=== PATIENT | male | born 1940 | race Hispanic/Latino ===

== ENCOUNTER 2017-08-20 15:21 | Inpatient (IN) | payer MEDICARE ==
[~2017-08-20] VITALS: Ht 165.1 cm; Wt 90.4 kg
[~2017-08-20 15:21] MED LIST: ALBUTEROL SULF8.5 GM INH; ATORVASTATIN CA10 MG PO; CLOPIDOGREL75 MG PO; FLOMAX0.4 MG PO; LASIX40 MG PO; LEVAQUIN500 MG PO; LISINOPRIL2.5 MG PO; METOPROLOL SUCC50 MG PO; PANTOPRAZOLE SO40 MG PO; POTASSIUM CHLO10 ME1 PO; TESSALON PERLE100 MG PO; VITAMIN D250000 UNIT PO; ZOFRAN ODT4 MG SL
[2017-08-20] MEDS ORDERED: ACETAMINOPHEN 325 MG TAB PO ONE (16:00)
[2017-08-20] MEDS ORDERED: ACETAMINOPHEN 325 MG TAB ONE (16:05)
[2017-08-20 16:58] LABS: BASOPHILS # (AUTO) 0.1 (0.0-0.1); BASOPHILS % 0.9 % (0.0-1.0); HEMATOCRIT 44.9 % (38.2-49.6); HEMOGLOBIN 14.3 g/dL (14.0-18.0); LYMPHOCYTES # (AUTO) 0.4 (1.0-3.2); LYMPHOCYTES % 3.1 % (18.0-39.1); MEAN CORPUSCULAR HEMOGLOBIN 31.3 pg (28-32); MEAN CORPUSCULAR HGB CONC 31.8 g/dL (31-35); MEAN CORPUSCULAR VOLUME 98.2 fL (81-99); MONOCYTES % 7.1 % (4.4-11.3); NEUTROPHILS # (AUTO) 12.4 (2.1-6.9); NEUTROPHILS % 88.5 % (38.7-80.0); PLATELET COUNT 188 x10e3/uL (140-360); RED BLOOD COUNT 4.57 x10e6/uL (4.3-5.7); RED CELL DISTRIBUTION WIDTH 12.4 % (11.7-14.4)
[2017-08-20 17:05] LABS: INR 1.09; PROTHROMBIN TIME 14.7 seconds (11.9-14.5)
[2017-08-20 17:06] LABS: PARTIAL THROMBOPLASTIN TIME 41.3 seconds (23.8-35.5)
[2017-08-20 17:13] LABS: ALBUMIN 2.9 g/dL (3.5-5.0); ALBUMIN/GLOBULIN RATIO 0.6 (0.8-2.0); ANION GAP 13.3 mmol/L (8-16); CALCIUM 9.5 mg/dL (8.4-10.2); CREATININE, SERUM 2.03 mg/dL (0.72-1.25); POTASSIUM 4.3 mmol/L (3.5-5.1)
[2017-08-20 17:20] LABS: TROPONIN I 0.126 ng/mL (0-0.300)
--- NOTE | 2017-08-20 17:38 | Diagnostic Imaging Report ---
PROCEDURE: Frontal and lateral views of the chest. COMPARISON: Chest x-ray 02/16/2016. CT chest with 02/08/2016 INDICATIONS: SHORT OF BREATH FINDINGS: Lines/tubes: Median sternotomy wires remain intact. Lungs: Worsening nodular airspace opacities bilaterally, right worse and left. Pleura: There is no pleural effusion or pneumothorax. Heart and mediastinum: The heart and the mediastinum are normal. Atherosclerotic calcifications are present. Bones: No acute bony abnormality. IMPRESSION: Worsening multifocal nodular air space opacities, right worse than left. This is concerning for atypical infection such as OLE. This was previously present since 02/08/2016 but has continued to worsen. Alternatively a metastatic disease should also be considered. Dictated by: Artemio Zelaya M.D. on 08/20/2017 at 17:46 Electronically approved by: Artemio Zelaya M.D. on 08/20/2017 at 17:46
[2017-08-20] MEDS ORDERED: SODIUM CHLORIDE 0.9% 1000ML 1,000 ML IV SCH (18:38)
[2017-08-20] MEDS ORDERED: METOCLOPRAMIDE HCL 10 MG/2ML VIAL IV PRN (18:45)
[2017-08-20] MEDS ORDERED: ASPIRIN 81 MG CHEW TAB PO ONE (18:45)
[2017-08-20] MEDS ORDERED: ALBUTEROL/IPRATROPIUM 3 ML NEB NEB ONE (18:45)
[2017-08-20] MEDS ORDERED: ETOMIDATE 2 MG/ML 10 ML INJ IV ONE (19:00)
[2017-08-20] MEDS ORDERED: SUCCINYLCHOLINE 200 MG/10 ML SYR ONE (19:00)
[2017-08-20] MEDS: IPRATROPIUM BROMIDE 0.02% 2.5 ML NEB NEB SCH (19:00)
--- NOTE | 2017-08-20 19:42 | Diagnostic Imaging Report ---
CT chest without enhancement CPT code: 68438 INDICATION: Atypical pneumonia versus metastatic lung disease. No primary malignancy documented. TECHNIQUE: Thin collimation axial images obtained from the thoracic inlet to the level of the diaphragm without intravenous contrast. RADIATION DOSE: Total DLP: 542.3 mGy*cm Estimated effective dose: (DLP x 0.015 x size factor) mSv CTDIvol has been reviewed. It is below the limits set by the Radiation Protocol Committee (RPC). COMPARISON: CT chest 02/08/2016 (performed for bronchitis and fever), chest x-ray 02/16/2016 CHEST FINDINGS: Lymph nodes: No enlarged axillary or supraclavicular lymphadenopathy. Mediastinal lymph nodes are prominent. A right paratracheal lymph node measures 1.6 x 1.0 cm. A subcarinal lymph node measures 1.5 x 1.7 cm. A lymph node in the AP window measures 1.3 x 1.0 cm. These are all slightly larger compared to previous exam. Thyroid: Diminutive in size without mass in the visualized parenchyma. Mediastinum: Atherosclerotic and valvular calcifications are present. The heart is mildly enlarged. No pericardial effusion. The aorta and main pulmonary artery are normal in diameter. The esophagus is collapsed. Lungs: Right: Multifocal inflammatory appearing noncalcified nodules are present throughout the lung, similar to previous exam. There is diffuse bronchial wall thickening. No alissa consolidation. These nodules are now increased in number. Left: Multifocal inflammatory appearing and noncalcified nodules present throughout the lung. These are similar in appearance but increased in number compared to previous exam. There is mild bronchial wall thickening. No alissa consolidation. Airways: There is mucous along the left wall of the trachea. There is mild tracheobronchomalacia.. Pleura: No pleural effusion or pleural based mass.. ABDOMEN FINDINGS: The liver is decreased in attenuation consistent with steatosis. A calcified granuloma in the right lobe is stable. There are tiny gallstones in the gallbladder neck. These are stable in position. No soft tissue mass in the visualized portions of the liver, spleen, or adrenal glands.. Bones: Median sternotomy is intact. There are degenerative changes of the spine without compression deformity. No lytic or blastic lesions.. IMPRESSION: 1. Multifocal inflammatory appearing nodules nodules, right lung more severe than the left, is very suggestive of infectious/inflammatory process. However, metastasis should be considered if there are no signs/symptoms of infection and there is a history of malignancy. 2. Diffuse bronchial wall thickening suggestive of bronchitis. 3. COPD. 4. Mediastinal lymph nodes are slightly larger which may be reactive to an infectious/inflammatory process. 5. Hepatic steatosis. Cholelithiasis. Signed by: Dr. Arpan Gillis MD on 08/20/2017 7:39 PM
[2017-08-20] MEDS: CEFTRIAXONE SOD 1 GM VIAL IV SCH (20:27)
[2017-08-20] MEDS: AZITHROMYCIN 500MG/NS 250 ML 250 ML IV SCH (20:27)
[2017-08-20] MEDS: SODIUM CHLORIDE 0.9% 1000ML 1,000 ML IV SCH (20:27)
[2017-08-20] MEDS ORDERED: LISINOPRIL10 MG PO (20:45)
[2017-08-20] MEDS ORDERED: TAMSULOSIN HCL0.4 MG PO (20:45)
[2017-08-20] MEDS ORDERED: VITAMIN D250000 UNIT PO (20:45)
[2017-08-20] MEDS ORDERED: FLUOXETINE HCL10 MG PO (20:45)
[2017-08-20 20:53] LABS: BAND NEUTROPHILS % (MANUAL) 27 %; LYMPHOCYTES % (MANUAL) 4 % (19-48); METAMYELOCYTES % (MANUAL) 2 % (0-0); NEUTROPHILS % (MANUAL) 67 % (40-74)
[2017-08-20 20:59] LABS: PLATELET ESTIMATE ADEQUATE; PLATELET MORPHOLOGY COMMENT NORMAL; RBC MORPHOLOGY COMMENT NORMAL
[2017-08-20 21:20] VITALS: BP 98/45
[2017-08-20] MEDS: FAMOTIDINE 20 MG/2 ML VIAL IV SCH (21:30)
[2017-08-20 22:00] VITALS: BP 98/45
[2017-08-21] VITALS: BP 98/45
[2017-08-21 01:15] LABS: CREATINE KINASE MB 1.2 ng/mL (0.00-5.00); TROPONIN I 0.073 ng/mL (0-0.300)
[2017-08-21] MEDS: IPRATROPIUM BROMIDE 0.02% 2.5 ML NEB NEB SCH ×4 (01:55→19:10)
[2017-08-21 04:00] VITALS: BP 147/71
[2017-08-21] MEDS: SODIUM CHLORIDE 0.9% 1000ML 1,000 ML IV SCH ×2 (05:49→15:04)
[2017-08-21] MEDS: CEFTRIAXONE SOD 1 GM VIAL IV SCH ×2 (05:49→18:03)
--- NOTE | 2017-08-21 07:22 | Diagnostic Imaging Report ---
EXAMINATION: PA and lateral views of the chest. COMPARISON: CT chest 08/20/2017, chest radiograph 08/20/2017 CLINICAL HISTORY: Pneumonia DISCUSSION: Coarse interstitial opacities, right greater than left are unchanged relative to 08/20/2017 when accounting for differences in technique. No new airspace consolidation. No pneumothorax. Stable cardiomediastinal contour with postsurgical changes in the mediastinum. Mediastinal lymphadenopathy is seen to better advantage on comparison CT. No acute osseous abnormalities. Multilevel degenerative disc changes of the thoracic spine. IMPRESSION: Coarse interstitial nodular opacities, right greater than left, are grossly stable relative to 08/20/2017. For further description and differential diagnosis refer to the report for CT scan of the chest without contrast 08/20/2017. Signed by: Dr. Ulises Alicea M.D. on 08/21/2017 7:18 AM
[2017-08-21 07:40] LABS: BASOPHILS % 0.2 % (0.0-1.0); EOSINOPHILS % 0.1 % (0.0-6.0); HEMATOCRIT 40.8 % (38.2-49.6); HEMOGLOBIN 12.8 g/dL (14.0-18.0); LYMPHOCYTES # (AUTO) 0.8 (1.0-3.2); MEAN CORPUSCULAR HGB CONC 31.4 g/dL (31-35); MEAN CORPUSCULAR VOLUME 98.8 fL (81-99); MONOCYTES # (AUTO) 1.6 (0.2-0.8); MONOCYTES % 9.9 % (4.4-11.3); NEUTROPHILS # (AUTO) 13.3 (2.1-6.9); NEUTROPHILS % 84.2 % (38.7-80.0); PLATELET COUNT 175 x10e3/uL (140-360); RED BLOOD COUNT 4.13 x10e6/uL (4.3-5.7); RED CELL DISTRIBUTION WIDTH 12.4 % (11.7-14.4)
[2017-08-21 07:47] VITALS: BP 125/65
[2017-08-21 08:03] LABS: ANION GAP 12.8 mmol/L (8-16); CALCIUM 8.8 mg/dL (8.4-10.2); CREATININE, SERUM 1.99 mg/dL (0.72-1.25); POTASSIUM 4.8 mmol/L (3.5-5.1)
[2017-08-21 10:24] LABS: CREATINE KINASE MB 1.6 ng/mL (0.00-5.00); TROPONIN I 0.096 ng/mL (0-0.300)
[2017-08-21 11:51] VITALS: BP 136/67
[2017-08-21] MEDS: BENZONATATE 100 MG CAP PO SCH ×3 (14:51→22:00)
[2017-08-21] MEDS: ONDANSETRON HCL 4 MG ORAL DISINTEGRATING TAB SL SCH ×3 (14:51→22:00)
[2017-08-21 15:47] VITALS: BP 158/70
--- NOTE | 2017-08-21 16:30 | Consultation ---
DATE OF CONSULTATION: August 21, 2017 PULMONARY MEDICINE CONSULT PATIENT'S ACTIVITIES MANAGER: Dr. Lm Richards. This is in coverage. HISTORY: Mr. Christie is a pleasant 77-year-old gentleman with abnormal chest radiography. Patient came to our emergency room on August 20, 2017. He has been losing weight for the last year. He has had decreased appetite. He has had increased chest congestion. Of note, normally he would walk with 10 to 20 meters' distance except for the last 6 months for which he is totally not walking. He is on oxygen, possibly at night. Patient does not inform me that he is on any bronchodilators. Patient with increase in congestion recently and he came in for a CAT scan. When compared to CAT scan from 1-1/2 years ago, there is progression of multifocal nodular opacities, small consolidations possible initiating, thickening of bronchial borden suggestive of bronchitis. Patient was admitted. He was initiated on antibiotics for pneumonia. As he is weak in this chronic condition and that is not responding to initial management, I was consulted. PAST MEDICAL HISTORY: Right internal carotid stent November 2014, coronary artery bypass 2000, aortic valve replacement porcine for severe aortic stenosis February 2013, active coronary artery disease on last cardiac catheterization, hypertension, hyperlipidemia, GERD, pneumonia, history of right amaurosis fugax, bleeding gastric ulcer October 2014, appendectomy, bilateral cataract surgery. He denies asthma, denies knowledge of COPD, denies allergies, and he also denies that the GERD is significant. MEDICATIONS: Medication list reviewed per electronic record. Plavix, Lasix, azithromycin are among some of the active medicines with ceftriaxone. Other medicines per record. ALLERGIES: NO KNOWN DRUG ALLERGIES. SOCIAL HISTORY: Patient former social drinker but not recently. No drugs. Patient smoked from age 18 to 52 years of age, 1 pack per day. 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 He was born at [facility] on the border with [place] and [place]. Patient lives with , who is stronger than he is. FAMILY HISTORY: Noncontributory to this condition. REVIEW OF SYSTEMS: Cannot get at this time as he is very tired and he is decreased historian. PHYSICAL EXAMINATION VITAL SIGNS: Currently afebrile. Vital signs noted per electronic record. GENERAL: No distress, but weak, in bed, slightly pale and appears weak. HEENT: Normocephalic, atraumatic. NECK: Supple. Throat midline. LUNGS: Bilateral air entry, limited due to limited effort, rare rhonchi. CARDIOVASCULAR: S1 and S2. No murmurs, rubs or gallops. ABDOMINAL: Soft, nontender. EXTREMITIES: No clubbing, no cyanosis. There is only trace edema. INTEGUMENT: No rash, no purpura. LABS: Potassium 4.8, bicarb 20, BUN 32, creatinine 1.9. White count 16, hematocrit 41, platelets 175. BNP level is 177. IMPRESSION AND PLAN 1. Multifocal pneumonitis, chronic, progressive. 2. Baseline debility and weakness. 3. Hypoxemia not otherwise specified. He has some home oxygen at night. 4. Former smoker, but without disclosing active pulmonary disease definitively. 5. Elevated creatinine, treat as acute kidney injury. 6. Aortic valve replacement status. 7. Coronary artery disease status post coronary artery bypass graft. 8. Hyperlipidemia. 9. Hypertension. 10. No definite reports of gastroesophageal reflux disease significant, no allergies, no asthma by report. At this time, continue antibiotics which could be reasonable. Most importantly, we need to culture sputum and figure out if this is chronic bacterial infection or if it is either mycobacterial or fungal infection. There is significant chance of this being mycobacterial. Will check sputum AFB. Continue to promote patient to expectorate. We wish to mobilize him and have him do things that may allow him to expectorate sputum more easily. Follow up his creatinine to ensure improvement or in stabilization. I would like to thank Dr. Lm Richards and Dr. Vitor Castro for allowing me the chance to participate in the care of Mr. Natalee Christie. Do not hesitate to contact me if I could help in any way as I remain available for questions. Job#: [id number] EV
[2017-08-21] MEDS: LISINOPRIL 10 MG TAB PO SCH (17:00)
[2017-08-21] MEDS: METOPROLOL SUCCINATE 50 MG TAB XL PO SCH (18:02)
--- NOTE | 2017-08-21 18:35 | History and Physical ---
HISTORY OF PRESENT ILLNESS: A 77-year-old male with past medical history positive for coronary artery disease status post CABG, status post mitral valve placement, hypertension, chronic renal insufficiency. Patient apparently has been getting worse at home with cough and phlegm and fever and very lethargic. He was brought to the emergency room. REVIEW OF SYSTEMS: The patient is extremely sleepy. Cannot give me too much information most information. Most of the information is received from the family. PAST MEDICAL HISTORY: Coronary artery disease status post CABG. Status post mitral valve replacement, hypertension, chronic renal insufficiency and also history of apparently COPD. According to the family, he was diagnosed with that. He had a long history of smoking. ALLERGIES: HE IS NOT ALLERGIC TO ANY MEDICATIONS. SOCIAL HISTORY: He quit smoking. He used to smoke a lot. He does not drink alcohol. VITAL SIGNS: Blood pressure 125/65, temperature 98 degrees, heart rate 105 per minute, respiratory rate 18 per minute. Oxygen saturation 95%. LABORATORY DATA: Blood work we have BMP with a sodium 140, potassium 4.8, chloride 104. CO2 28, BUN 32, creatinine 1.99, glucose 120 and on CBC white blood count 15.7, hemoglobin 12.8, hematocrit 40.8, platelet count 155,000. PT 14.7. PTT 41.3. INR 1.09. AST 21. ALT 17. Total bilirubin 1.5, alkaline phosphatase 98. FINAL IMPRESSION: 1. Bilateral pneumonia. 2. Coronary artery disease status post CABG. 3. 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 4. Hypertension with hypertensive nephropathy. 5. Acute renal failure and chronic renal failure stage 3. 6. Chronic obstructive pulmonary disease exacerbation. PLAN OF TREATMENT: Continue albuterol and Atrovent q.6 h. as needed for shortness of breath. Zithromax 250 mg IV piggyback once a day. Continue ceftriaxone 1 gram IV piggyback twice a day. Metoclopramide 10 mg q.6 hours. Pepcid 20 mg daily. Tylenol 650 mg q.6 h. as needed. Continue with IV fluids, D5 with normal saline at 80 mL an hour. Going to recheck the BMP and CBC tomorrow. Resume home medications. Job#: [id number]
[2017-08-21] MEDS: AZITHROMYCIN 500MG/NS 250 ML 250 ML IV SCH (18:53)
[2017-08-21 20:00] VITALS: BP 141/63
[2017-08-21] MEDS: FAMOTIDINE 20 MG/2 ML VIAL IV SCH (20:48)
[2017-08-21] MEDS: TAMSULOSIN HCL 0.4 MG CAP PO SCH (20:48)
[2017-08-21] MEDS: ACETAMINOPHEN 325 MG TAB PO PRN (20:48)
[2017-08-21] MEDS ORDERED: ATORVASTATIN 10 MG TAB PO SCH (21:00)
[2017-08-22] VITALS (58 sets, daily range): BP systolic 81–150; BP diastolic 43–92
[2017-08-22] MEDS: IPRATROPIUM BROMIDE 0.02% 2.5 ML NEB NEB SCH ×4 (01:00→19:15)
[2017-08-22] MEDS: BENZONATATE 100 MG CAP PO SCH ×6 (02:00→21:40)
[2017-08-22] MEDS: ONDANSETRON HCL 4 MG ORAL DISINTEGRATING TAB SL SCH ×6 (02:00→21:40)
[2017-08-22] MEDS: SODIUM CHLORIDE 0.9% 1000ML 1,000 ML IV SCH ×3 (02:02→22:30)
[2017-08-22 06:26] LABS: ABG PCO2 130 mmHg (41-51); ABG PH 6.93 (7.31-7.41); ABG PO2 95 mmHg (80-105)
[2017-08-22] MEDS: CEFTRIAXONE SOD 1 GM VIAL IV SCH ×2 (06:47→16:42)
[2017-08-22] MEDS ORDERED: MIDAZOLAM HCL 25 MG in SODIUM CHLORIDE 0.9% 50ML 45 ML IV PRN (07:30)
--- NOTE | 2017-08-22 07:38 | Diagnostic Imaging Report ---
PROCEDURE: A single AP view of the chest. COMPARISON: Patients [facility], DX, CHEST 2 VIEWS, 08/21/2017, 6:28. INDICATIONS: ETT/NGT PLACEMENT FINDINGS: Lines/tubes: Endotracheal tube and nasogastric tube are in appropriate locations. Lungs: Worsening interstitial opacities in both lungs may represent multifocal pneumonia. Pleura: Small bilateral pleural effusions. Heart and mediastinum: The heart and the mediastinum are unremarkable. Bones: No acute bony abnormality. IMPRESSION: 1. Worsening pulmonary opacities. 2. Acceptable position of the ET tube and NG tube. Aguila Ledezma D.O. Dictated by: Agiula Ledezma D.O. on 08/22/2017 at 7:46 Electronically approved by: Aguila Ledezma D.O. on 08/22/2017 at 7:46
[2017-08-22 07:44] LABS: BASOPHILS # (AUTO) 0.1 (0.0-0.1); BASOPHILS % 0.8 % (0.0-1.0); HEMATOCRIT 41.3 % (38.2-49.6); HEMOGLOBIN 12.5 g/dL (14.0-18.0); LYMPHOCYTES # (AUTO) 0.5 (1.0-3.2); LYMPHOCYTES % 2.7 % (18.0-39.1); MEAN CORPUSCULAR HEMOGLOBIN 31.4 pg (28-32); MEAN CORPUSCULAR HGB CONC 30.3 g/dL (31-35); MONOCYTES % 5.6 % (4.4-11.3); NEUTROPHILS # (AUTO) 15.7 (2.1-6.9); NEUTROPHILS % 89.2 % (38.7-80.0); RED BLOOD COUNT 3.98 x10e6/uL (4.3-5.7); RED CELL DISTRIBUTION WIDTH 12.5 % (11.7-14.4)
--- NOTE | 2017-08-22 07:51 | Diagnostic Imaging Report ---
Exam: Head CT without contrast History: Altered mental status, unresponsive Comparison studies: None Technique: Axial images were obtained from the skull base to the vertex. Coronal and sagittal images reconstructed from the axial data. Intravenous contrast: None Findings: Scalp: No abnormalities. Bones: No fractures, blastic or lytic lesions. Brain sulci: Mildly prominent. Ventricles: Mild compensatory dilatation. No hydrocephalus. Extra-axial spaces: No masses, no fluid collection. Parenchyma: No mass, acute hemorrhage or acute cortical vascular insults. There are chronic lacunar infarcts in the head of the right caudate nucleus which extend to the adjacent anterior limb of the right internal capsule, within the right thalamus, along the lateral margin of the right superior putamen and in the anterior left lentiform nucleus. Ill-defined confluent hypodensities in the supratentorial white matter are nonspecific but most compatible with chronic small vessel ischemic changes. A 7 mm calcification along the right occipital convexity, just superior to the calcarine fissure, is without mass effect and may reflect dystrophic calcification is sequela previous infection/inflammation, or alternatively small meningioma at the extra-axial in location. Sellar/suprasellar region: No abnormalities. Craniocervical junction: Patent foramen magnum. No Chiari one malformation. Incidental findings: Atherosclerotic calcifications in the carotid siphons and intradural vertebral arteries. IMPRESSION: No mass, acute hemorrhage or acute cortical vascular insults. Chronic findings: 1. Mild generalized volume loss. 2. Moderate microvascular ischemic changes. 3. Multiple chronic lacunar infarcts as described. 4. Incidental right occipital calcification. Signed by: Dr. Ulises Patino M.D. on 08/22/2017 7:48 AM
[2017-08-22 08:03] LABS: ANION GAP 14.8 mmol/L (8-16); CALCIUM 8.7 mg/dL (8.4-10.2); CREATININE, SERUM 1.99 mg/dL (0.72-1.25)
[2017-08-22] MEDS: ALBUTEROL SULF 0.083% NEB SOLN 3 ML NEB NEB PRN ×2 (08:05→19:15)
[2017-08-22 08:09] LABS: POTASSIUM 6.8 mmol/L (3.5-5.1)
[2017-08-22 08:20] LABS: MEAN CORPUSCULAR VOLUME 103.8 fL (81-99); PLATELET COUNT 184 x10e3/uL (140-360)
[2017-08-22] MEDS ORDERED: INSULIN REGULAR, HUMAN 100 UNIT/1 ML 3ML VIAL IV ONE (08:45)
[2017-08-22] MEDS ORDERED: CALCIUM GLUCONATE 10% INJ 4.65 MEQ in SODIUM CHLORIDE 0.9% 50ML 50 ML IV ONE (08:45)
[2017-08-22] MEDS ORDERED: DEXTROSE 50% SYRINGE 50 ML IV ONE (08:45)
[2017-08-22] MEDS ORDERED: SOD POLYSTYRENE SULFONATE SUSP 15 GM/60 ML BTL PO ONE (08:45)
[2017-08-22] MEDS: FLUOXETINE HCL 10 MG CAP PO SCH (09:00)
[2017-08-22] MEDS: CLOPIDOGREL BISULFATE 75 MG TAB PO SCH (09:00)
[2017-08-22] MEDS ORDERED: LISINOPRIL 2.5 MG TAB PO SCH (09:00)
[2017-08-22] MEDS: LISINOPRIL 10 MG TAB PO SCH (09:00)
[2017-08-22] MEDS ORDERED: FUROSEMIDE 40 MG TAB PO SCH (09:00)
[2017-08-22] MEDS ORDERED: POTASSIUM CHLORIDE 10 MEQ TABCR PO SCH (09:00)
[2017-08-22] MEDS ORDERED: PANTOPRAZOLE SOD 40 MG TABEC PO SCH (09:00)
[2017-08-22] MEDS: METOPROLOL SUCCINATE 50 MG TAB XL PO SCH (09:00)
[2017-08-22] MEDS ORDERED: SOD POLYSTYRENE SULFONATE SUSP 15 GM/60 ML BTL ONE (09:11)
[2017-08-22 10:10] LABS: PLATELET ESTIMATE ADEQUATE; PLATELET MORPHOLOGY COMMENT NORMAL; RBC MORPHOLOGY COMMENT NORMAL
[2017-08-22 10:54] LABS: ABG HCO3 26 mmol/L (23-28); ABG PCO2 48 mmHg (41-51); ABG PH 7.34 (7.31-7.41); ABG PO2 440 mmHg (80-105)
[2017-08-22 11:23] LABS: HIV 1&2 AB SCREEN NON-REACTIVE (NONREACTIVE)
[2017-08-22] MEDS ORDERED: BUMETANIDE INJ 0.25MG/ML 4ML VIAL IV ONE (12:15)
--- NOTE | 2017-08-22 12:34 | Progress Note ---
DATE: August 22, 2017 INTERNAL MEDICINE PROGRESS NOTE SUBJECTIVE: This is a 77-year-old male who came with pneumonia yesterday. He has a history of COPD, also. Went into respiratory distress. He started retaining CO2. He had to be intubated and transferred to the intensive care unit. He was found to be hypotensive, and IV fluids have been increased. So far, blood pressure is 104/54 right now. Oxygen saturation 100%. He is on the ventilator of course. He has worsening pulmonary infiltrates, most likely secondary to the pneumonia that he had before, which worsened the COPD. He also was found to have potassium of 6.8, which was treated with D50 IV push, insulin IV push, sodium bicarbonate, calcium gluconate, and Kayexalate. Lasix, potassium and lisinopril have been discontinued. PHYSICAL EXAMINATION VITAL SIGNS: Blood pressure is, as I said, 104/54. Temperature is 96.2 degrees. Heart rate 64 per minute. Respiratory rate 15 per minute. Oxygen saturation is 100% right now. HEART: Regular rhythm. Normal S1 and S2 sounds. LUNGS: Clear bilaterally. ABDOMEN: Soft. EXTREMITIES: No evidence of cyanosis, edema or trauma. BLOOD WORK: We have a BMP with sodium 140, potassium 6.8, chloride 109, CO2 23, BUN 38, creatinine 1.99. Glucose 138. On the CBC, white blood count is elevated at 17.5, hemoglobin 10.5, hematocrit 41.3, platelet count 184,000. PT 14.7, PTT 41.3, INR 1.09. AST 21, ALT 17, total bilirubin 1.5, alkaline phosphatase 98. Chest x-ray shows bilateral infiltrates in both lungs. ET tube is above the federica, and NG tube is in place. FINAL IMPRESSION 1. Acute respiratory failure secondary to chronic obstructive pulmonary disease exacerbation secondary to pneumonia. 1. Chronic obstructive pulmonary disease exacerbation. 2. Bilateral pneumonia. 3. Npwzh-ai-fexyqum renal failure. 4. Hyperkalemia. 5. Leukocytosis. 6. Essential hypertension. 7. Hyperlipidemia. 8. History of coronary artery disease. 9. History of benign prostatic hypertrophy. 10. Obesity. PLAN OF TREATMENT: Continue ventilator support. As I said, the patient got IV insulin, IV D50, calcium gluconate and Kayexalate. We are going to follow up the potassium level, which we already ordered for this morning. Nephrology, Dr. Corona, has been consulted on the case. Dr. Rinku Carpenter of pulmonary is following him from a critical care point of view. Continue albuterol and Atrovent q.2 h. as needed for shortness of breath. Continue Zithromax 250 mg IV piggyback once a day. Continue Tylenol 650 mg q.6 h. as needed. Continue Protonix 40 mg daily. Continue with metoclopramide 10 mg IV q.6 h. and Plavix 75 mg daily. Metoprolol 50 mg twice a day has been discontinued because of hypotension. Continue Flomax 0.4 mg at bedtime. Rocephin 1 g IV piggyback daily, fluoxetine 10 mg daily, Zofran 4 mg IV q.4 h. as needed. I discussed the case with the nurse at the bedside. Labs have been reviewed. Patient is going to remain in the intensive care unit due to the critical condition. We are going to follow his labs very carefully, especially the potassium, BUN and creatinine. We are going to start NG tube while he is on the ventilator machine. Most likely going to be Nepro at 40 mL an hour. I spent approximately 60 minutes in his care. Job#: [id number]
[2017-08-22 12:39] LABS: CLARITY,URINE CLOUDY (CLEAR); COLOR,URINE AMBER (YELLOW); KETONES,URINE NEGATIVE (NEGATIVE); LEUKOCYTE ESTERASE ,URINE NEGATIVE (NEGATIVE); NITRITE,URINE NEGATIVE (NEGATIVE); URINE UROBILINOGEN 4 mg/dL (0.2 - 1)
[2017-08-22 12:42] LABS: BILIRUBIN,URINE 1+ (NEGATIVE); PROTEIN,URINE DIPSTICK 2+ (NEGATIVE)
[2017-08-22 12:54] LABS: BACTERIA,URINE MANY /HPF; RBC,URINE >50 /HPF (0-5)
[2017-08-22 12:55] LABS: EPITHELIAL CELLS,URINE FEW /LPF
[2017-08-22 12:57] LABS: AMORPHOUS SEDIMENT,URINE MODERATE (FEW)
--- NOTE | 2017-08-22 13:06 | Diagnostic Imaging Report ---
PROCEDURE:US RETROPERITONEAL ( KIDNEY ). COMPARISON:CT chest 08/20/17. INDICATIONS:ARF TECHNIQUE: Ward-scale and color sonographic images of the bilateral kidneys and bladder where obtained in transverse and longitudinal planes. FINDINGS: RIGHT KIDNEY: 12.4 cm in length. Normal cortical thickness. Cysts: None Solid masses: None Stones: None Hydronephrosis: None Echogenicity: Within normal limits LEFT KIDNEY: 9.1 cm in length. The cortex is mildly diminutive. Cysts: None Solid masses: None Stones: Lower pole calculus measures 15 mm. Hydronephrosis: None Echogenicity: Normal Bladder: Collapsed around a Tom catheter. No free fluid in the pelvis. Visualized portions of the liver and spleen demonstrate no focal abnormality. CONCLUSION: Left intrarenal calculus. No obstructive uropathy. Normal renal echotexture. Mildly atrophic left kidney. No hydronephrosis. Dictated by: Arpan Gillis M.D. on 08/22/2017 at 13:14 Electronically approved by: Arpan Gillis M.D. on 08/22/2017 at 13:14
[2017-08-22] MEDS ORDERED: VANCOMYCIN 1GM/NS 250 ML 250 ML IV ONE (14:15)
--- NOTE | 2017-08-22 14:16 | Diagnostic Imaging Report ---
PROCEDURE: CHEST XRAY LINE PLACEMENT COMPARISON: 0700 hours INDICATIONS: S/P PICC PLACEMENT FINDINGS: Portable frontal image obtained at 1352 hrs. LINES/TUBES: Right PICC line terminates in the SVC. No evidence of pneumothorax. Endotracheal tube terminates 3-4 cm above the federica. Enteric tube extends past the diaphragm. LUNGS: Right pulmonary infiltrates are grossly stable. Left pulmonary infiltrates have slightly improved. PLEURA: A right pleural effusion has mobilized into the base of the chest. No large left pleural effusion. No pneumothorax. HEART \T\ MEDIASTINUM: Stable cardiomegaly and median sternotomy wires BONES \T\ SOFT TISSUES: Stable. CONCLUSION: Right PICC line terminates in the SVC without evidence of pneumothorax. Right pleural effusion and pulmonary infiltrates are similar. Some improvement in left pulmonary infiltrates. Dictated by: Arpan Gillis M.D. on 08/22/2017 at 14:24 Electronically approved by: Arpan Gillis M.D. on 08/22/2017 at 14:24
--- NOTE | 2017-08-22 15:33 | Progress Note ---
DATE: August 22, 2017 PULMONARY/CRITICAL CARE PROGRESS NOTE SUBJECTIVE: The patient follows with me in the office. He has valvular heart disease and subsequent pulmonary artery hypertension. He also has some COPD from prior smoking. He uses oxygen at home although has not benefitted much from bronchodilators. The patient came to the emergency department on the with decreased appetite and increased congestion. He had more difficulty breathing. His chest CT showed multifocal nodular opacities consistent with pneumonia or infection. OBJECTIVE VITAL SIGNS: The patient is now afebrile though he did have a temperature of 100.3 last night. His blood pressure is 112/59 and his saturation is 100%. His pulse is 52. He is on a ventilator at the assist-control rate of 18 with 500 and 50%. His PEEP is set at 5. HEENT: Examination shows no facial swelling or erythema. The nasal mucosa is normal. He has an oral endotracheal tube in place. CARDIAC: Exam reveals a regular rate and rhythm with a normal S1 and S2. There are no murmurs or rubs. LUNGS: Auscultation reveals rhonchorous breath sounds bilaterally. There is no wheezing. ABDOMEN: Soft and nontender. There is no rebound or guarding. EXTREMITIES: Examination shows no leg edema or calf tenderness. RADIOGRAPHIC DATA: Chest x-ray shows bilateral opacities in the lung quintana, significantly worse on the right side than the left. LABORATORY DATA: The creatinine is 1.99 with the potassium that was 6.8 this morning but has improved to 5. The white blood cell count is increased to 17 and the hemoglobin is 12.5. IMPRESSION 1. Community-acquired pneumonia. 1. Possible influenza or viral infection preceding the pneumonia. 2. Chronic heart disease and associated pulmonary artery hypertension. 3. Chronic obstructive pulmonary disease. 4. Aclvs-me-fvbjcff renal insufficiency. PLAN 1. Patient's antibiotics will be broadened to cover for staph following an influenza in addition to community-acquired pathogens. 2. Despite a negative influenza swab, given the current epidemic, I believe Tamiflu is warranted. 3. Continue assist-control mode of ventilation for now and then wean as tolerated. 4. Avoid Versed because of the large volume of distribution and difficulty with evaluating the neurological status on this medication. We will use propofol temporarily and attempt a spontaneous breathing trial tomorrow. 5. Continue to treat the potassium and monitor the creatinine. 6. Patient's regular shift engineer is Dr. Quinn Marcus. A cardiology consultation would probably be warranted. 7. I discussed the case with the nurse, with Dr. Corona and with Dr. Carpenter. 8. I also discussed the case with the family. 9. Greater than 35 minutes in direct critical care time. Job#: [id number]
--- NOTE | 2017-08-22 16:07 | Consultation ---
DATE OF CONSULTATION: August 22, 2017 History predominantly from family, chart and partly from Dr. Castro. HISTORY OF PRESENT ILLNESS: A 77-year-old gentleman significant for history of coronary artery disease, status post coronary bypass surgery x 2. 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 His baseline creatinine 1.34. At this time, was admitted with shortness of breath and respiratory failure requiring intubation. Currently intubated, sedated and unable to give any history. He has an indwelling Tom catheter. Please see official report, chest x-ray shows right-sided infiltrate and left-sided infiltrate, but right more than left. ALLERGIES: HE IS NOT ALLERGIC TO ANY MEDICATIONS. CURRENT MEDICATIONS: Include Flomax 0.4 mg at bedtime. He received 1 dose of Kayexalate earlier for hyperkalemia. He is also on Tamiflu 75 mg per feeding tube twice a day. He was on K-Dur 10 mEq daily, which has been stopped. He is on pantoprazole. He was on lisinopril 10 mg p.o. b.i.d., which has been stopped. His metoprolol has been held. He is on famotidine 20 mg IV nightly. Fluoxetine 10 mg daily. He is on Plavix 75 mg daily. He received one time dose of Bumex. He received 1 liter of IV normal saline. Also on azithromycin and he is on dopamine p.r.n. His current labs show hemoglobin 14.3. Potassium of 6.8, down to 5 with a bicarbonate 23, creatinine 1.99 and calcium 8.7. SOCIAL HISTORY: Does not smoke or drink. Lives with his . PAST MEDICAL HISTORY: Significant for coronary disease, coronary artery bypass surgery, chronic kidney disease stage 3, history of bleeding gastric ulcer in October 2014, prior appendectomy. Underlying COPD. History of aortic stenosis, status post aortic valve replacement. Prior history of tobacco addiction, quit 27 years ago. FAMILY HISTORY: Noncontributory at this point in time as far as kidneys are concerned. PHYSICAL EXAMINATION: GENERAL: The patient is intubated, sedated. Oxygen saturation 100%. VITALS: Pulse rate 55. Blood pressure 133/65 HEAD AND NECK: Pupils reactive. Orally intubated. LUNGS: Harsh vesicular breath sounds. Air entry good bilaterally. Rales noted right lower 3rd, left clear. HEART: S1 and S2 audible. ABDOMEN: Soft. LOWER EXTREMITY EXAMINATION: No edema. IMPRESSION AND PLAN: Acute respiratory failure, possible influenza, pneumonia. Elevated white count. Will start empiric Rocephin. In the meantime, will diurese and obtain BNP level. Hyperkalemia has since corrected. I agree with discontinuation of scheduled Lasix and schedule lisinopril and potassium replacement. I will monitor patient's kidney function and urine output. At the moment, will diurese. Obtain stat kidney ultrasound. Discussed with family and discussed Dr. Lm Richards and discussed with Dr. Vitor Castro. Job#: [id number]
[2017-08-22] MEDS: OSELTAMIVIR PHOSPHATE 75 MG CAP PO SCH (16:42)
[2017-08-22] MEDS: FUROSEMIDE INJ 10 MG/ML 4 ML VIAL IV SCH (16:42)
[2017-08-22] MEDS: AZITHROMYCIN 500MG/NS 250 ML 250 ML IV SCH (17:46)
[2017-08-22] MEDS: PROPOFOL IV EMULSION 10MG/ML 100 ML IV PRN (19:13)
[2017-08-22] MEDS: SODIUM CHLORIDE FLUSH 10 ML SYR INJ PRN ×3 (21:00→23:00)
[2017-08-22] MEDS: TAMSULOSIN HCL 0.4 MG CAP PO SCH (21:40)
[2017-08-22] MEDS: FAMOTIDINE 20 MG/2 ML VIAL IV SCH (21:40)
[2017-08-22 23:51] LABS: OCCULT BLOOD STOOL POSITIVE (NEGATIVE)
[2017-08-23] VITALS (95 sets, daily range): BP systolic 106–208; BP diastolic 47–102
[2017-08-23] MEDS: BENZONATATE 100 MG CAP PO SCH ×6 (01:48→21:04)
[2017-08-23] MEDS: ONDANSETRON HCL 4 MG ORAL DISINTEGRATING TAB SL SCH ×6 (01:48→22:00)
[2017-08-23] MEDS: SODIUM CHLORIDE FLUSH 10 ML SYR INJ PRN ×7 (02:00→23:00)
[2017-08-23] MEDS: SODIUM CHLORIDE 0.9% 1000ML 1,000 ML IV SCH ×3 (02:25→15:19)
[2017-08-23] MEDS: IPRATROPIUM BROMIDE 0.02% 2.5 ML NEB NEB SCH ×4 (02:54→19:00)
[2017-08-23] MEDS: FUROSEMIDE INJ 10 MG/ML 4 ML VIAL IV SCH ×2 (04:41→15:27)
[2017-08-23 05:42] LABS: BASOPHILS % 0.3 % (0.0-1.0); EOSINOPHILS % 0.1 % (0.0-6.0); HEMATOCRIT 34.9 % (38.2-49.6); HEMOGLOBIN 11.3 g/dL (14.0-18.0); LYMPHOCYTES # (AUTO) 0.7 (1.0-3.2); LYMPHOCYTES % 6.4 % (18.0-39.1); MEAN CORPUSCULAR HEMOGLOBIN 31.2 pg (28-32); MEAN CORPUSCULAR HGB CONC 32.4 g/dL (31-35); MEAN CORPUSCULAR VOLUME 96.4 fL (81-99); MONOCYTES # (AUTO) 0.9 (0.2-0.8); MONOCYTES % 7.7 % (4.4-11.3); NEUTROPHILS # (AUTO) 9.8 (2.1-6.9); NEUTROPHILS % 84.5 % (38.7-80.0); PLATELET COUNT 181 x10e3/uL (140-360); RED BLOOD COUNT 3.62 x10e6/uL (4.3-5.7); RED CELL DISTRIBUTION WIDTH 12.8 % (11.7-14.4)
[2017-08-23 06:06] LABS: ALBUMIN 1.9 g/dL (3.5-5.0); ALBUMIN/GLOBULIN RATIO 0.5 (0.8-2.0); ANION GAP 13.3 mmol/L (8-16); CALCIUM 8.6 mg/dL (8.4-10.2); CREATININE, SERUM 2.29 mg/dL (0.72-1.25); POTASSIUM 3.3 mmol/L (3.5-5.1)
--- NOTE | 2017-08-23 06:51 | Diagnostic Imaging Report ---
EXAMINATION: CHEST SINGLE (PORTABLE) INDICATION: Respiratory failure COMPARISON: 08/22/2017 FINDINGS: TUBES and LINES: Endotracheal and nasogastric tubes are stable. Right upper extremity PICC line is in good position. LUNGS: Lungs are not well inflated. There are bibasilar atelectasis. There is mild prominence of the central pulmonary vasculature, consistent with pulmonary venous congestion. Persistent interstitial edema present. PLEURA: Small right pleural effusion. HEART AND MEDIASTINUM: Cardiac size is mildly enlarged. There are atherosclerotic calcifications within the aorta. BONES AND SOFT TISSUES: No acute osseous lesion. Soft tissues are unremarkable. UPPER ABDOMEN: No free air under the diaphragm. IMPRESSION: Stable interstitial edema with decreased lung volumes. Signed by: Dr. King Obando M.D. on 08/23/2017 6:47 AM
[2017-08-23] MEDS ORDERED: POTASSIUM CHLORIDE 20MEQ/100ML 100 ML IV ONE ×2 (07:30→09:15)
[2017-08-23] MEDS: PROPOFOL IV EMULSION 10MG/ML 100 ML IV PRN ×2 (08:00→19:30)
[2017-08-23] MEDS: CLOPIDOGREL BISULFATE 75 MG TAB PO SCH (09:00)
[2017-08-23] MEDS: FLUOXETINE HCL 10 MG CAP PO SCH (09:03)
[2017-08-23] MEDS: OSELTAMIVIR PHOSPHATE 75 MG CAP PO SCH ×2 (09:03→17:36)
[2017-08-23] MEDS: PANTOPRAZOLE SODIUM 40 MG SUSPDR.PKT PO SCH (09:03)
[2017-08-23 12:06] LABS: ABG HCO3 31 mmol/L (23-28); ABG PCO2 50 mmHg (41-51); ABG PO2 121 mmHg (80-105)
[2017-08-23 13:20] LABS: C DIFFICILE TOXIN A&B AMP PROB NEGATIVE (NEGATIVE)
[2017-08-23] MEDS ORDERED: POTASSIUM CHLORIDE 20 MEQ TAB CR PO ONE (15:00)
[2017-08-23] MEDS: CEFTRIAXONE SOD 1 GM VIAL IV SCH (15:27)
[2017-08-23] MEDS: ACETAMINOPHEN 325 MG TAB PO PRN (17:36)
[2017-08-23] MEDS: AZITHROMYCIN 500MG/NS 250 ML 250 ML IV SCH (17:54)
[2017-08-24] VITALS (93 sets, daily range): BP systolic 113–195; BP diastolic 54–79
[2017-08-24] MEDS: IPRATROPIUM BROMIDE 0.02% 2.5 ML NEB NEB SCH ×4 (01:00→19:09)
[2017-08-24] MEDS: SODIUM CHLORIDE 0.9% 1000ML 1,000 ML IV SCH ×2 (01:20→03:59)
[2017-08-24] MEDS: TAMSULOSIN HCL 0.4 MG CAP PO SCH ×2 (01:23→22:15)
[2017-08-24] MEDS: ONDANSETRON HCL 4 MG ORAL DISINTEGRATING TAB SL SCH ×6 (01:23→22:15)
[2017-08-24] MEDS: FAMOTIDINE 20 MG/2 ML VIAL IV SCH ×2 (01:23→22:15)
[2017-08-24] MEDS: SODIUM CHLORIDE FLUSH 10 ML SYR INJ PRN ×7 (02:00→22:00)
[2017-08-24] MEDS: FUROSEMIDE INJ 10 MG/ML 4 ML VIAL IV SCH ×2 (03:15→16:14)
[2017-08-24] MEDS: PROPOFOL IV EMULSION 10MG/ML 100 ML IV PRN ×3 (03:24→17:32)
[2017-08-24 05:58] LABS: BASOPHILS # (AUTO) 0.1 (0.0-0.1); BASOPHILS % 0.7 % (0.0-1.0); EOSINOPHILS # (AUTO) 0.2 (0.0-0.4); EOSINOPHILS % 1.6 % (0.0-6.0); HEMATOCRIT 36.6 % (38.2-49.6); HEMOGLOBIN 11.9 g/dL (14.0-18.0); LYMPHOCYTES % 9.4 % (18.0-39.1); MEAN CORPUSCULAR HEMOGLOBIN 31.2 pg (28-32); MEAN CORPUSCULAR HGB CONC 32.5 g/dL (31-35); MEAN CORPUSCULAR VOLUME 96.1 fL (81-99); MONOCYTES # (AUTO) 0.9 (0.2-0.8); MONOCYTES % 8.1 % (4.4-11.3); NEUTROPHILS # (AUTO) 8.3 (2.1-6.9); NEUTROPHILS % 78.8 % (38.7-80.0); PLATELET COUNT 196 x10e3/uL (140-360); RED BLOOD COUNT 3.81 x10e6/uL (4.3-5.7); RED CELL DISTRIBUTION WIDTH 13.2 % (11.7-14.4)
[2017-08-24 06:19] LABS: ALBUMIN 1.9 g/dL (3.5-5.0); ALBUMIN/GLOBULIN RATIO 0.4 (0.8-2.0); CREATININE, SERUM 1.97 mg/dL (0.72-1.25)
--- NOTE | 2017-08-24 07:41 | Diagnostic Imaging Report ---
EXAMINATION: CHEST SINGLE (PORTABLE) INDICATION: Intubated. Atypical pneumonia. COMPARISON: Chest x-ray 08/23/2017. FINDINGS: AP view TUBES and LINES: Endotracheal tube, nasogastric tube, and median sternotomy wires are unchanged. Right PICC line is unchanged. LUNGS: Lungs are not well inflated. There are bibasilar atelectasis. There is mild prominence of the central pulmonary vasculature, consistent with pulmonary venous congestion. Persistent interstitial edema present. PLEURA: Small right pleural effusion. HEART AND MEDIASTINUM: Cardiac size is mildly enlarged. There are atherosclerotic calcifications within the aorta. BONES AND SOFT TISSUES: No acute osseous lesion. Soft tissues are unremarkable. UPPER ABDOMEN: No free air under the diaphragm. IMPRESSION: Stable interstitial edema with decreased lung volumes. Signed by: Dr. Artemio Zelaya M.D. on 08/24/2017 7:37 AM
[2017-08-24] MEDS: BENZONATATE 100 MG CAP PO SCH ×5 (08:48→23:10)
[2017-08-24] MEDS: PANTOPRAZOLE SODIUM 40 MG SUSPDR.PKT PO SCH (08:48)
[2017-08-24] MEDS: FLUOXETINE HCL 10 MG CAP PO SCH (08:48)
[2017-08-24] MEDS: CLOPIDOGREL BISULFATE 75 MG TAB PO SCH (08:48)
[2017-08-24] MEDS: OSELTAMIVIR PHOSPHATE 75 MG CAP PO SCH ×2 (08:48→16:18)
[2017-08-24] MEDS ORDERED: POTASSIUM CHLORIDE 100 ML IV ONE (11:30)
[2017-08-24] MEDS: CEFTRIAXONE SOD 1 GM VIAL IV SCH (16:14)
[2017-08-24] MEDS: VANCOMYCIN HCL 750 MG in SODIUM CHLORIDE 0.9% 100 ML 150 ML IV SCH (16:18)
--- NOTE | 2017-08-24 16:37 | Progress Note ---
DATE: August 23, 2017 SUBJECTIVE: We placed the patient on a spontaneous breathing trial this morning, but he became tachypneic. He continues to have moderate amount of secretions in his endotracheal tube. OBJECTIVE GENERAL: He is sedated on Diprivan. VITAL SIGNS: He is not febrile. Blood pressure is 155/63 and the pulse is 89. He is on an assist control mode of ventilation. HEENT: Shows no facial swelling or erythema. There is an oral endotracheal tube in place. CARDIOVASCULAR: Regular rate and rhythm with normal S1 and S2. No murmurs or rubs. LUNGS: Reveals rhonchus breath sounds bilaterally. Is no wheezing. ABDOMEN: Is soft and nontender. There is no rebound or guarding. EXTREMITIES: No leg edema or calf tenderness. There is no cyanosis or clubbing. SKIN: No rashes. LABORATORY DATA: The white blood cell count is 11.6 and hemoglobin is 11.3. The platelet count is 18,000. The potassium is 3.3. The BUN to creatinine ratio is 51 to 2.3. The albumin is 1.9. The blood gas is 7.4, 41, 21 and 31. RADIOGRAPHIC DATA: The chest x-ray shows continued bilateral infiltrates. IMPRESSION: 1. Hmvvz-of-uucrmeb respiratory failure. 2. Pneumonia with severe sepsis. 3. History of an aortic valve replacement with pulmonary hypertension secondary to the aortic valve replacement. 4. Roeuq-zf-zjqndce kidney disease. 5. Chronic obstructive pulmonary disease. 6. Low potassium. PLAN: 1. Will continue mechanical ventilation with an assist control mode of ventilation for now. 2. Reattempt spontaneous breathing trial tomorrow. 3. Continue current antibiotics. Cultures are pending. 4. Sedation with Diprivan. 5. Echocardiogram results are pending. 6. I discussed the case with the , the daughter and other family members. I also discussed the case with the nurse. I spent greater than 35 minutes in direct critical care time, and rounded on the patient twice during the day, once at 8 o'clock and once at 1:30 p.m. Job#: [id number] GH MTDD
[2017-08-24] MEDS: HYDRALAZINE HCL 20 MG/ML VIAL IV PRN (16:48)
[2017-08-24] MEDS: AZITHROMYCIN 500MG/NS 250 ML 250 ML IV SCH (18:30)
[2017-08-25] VITALS (96 sets, daily range): BP systolic 80–177; BP diastolic 41–70
[2017-08-25] MEDS: PROPOFOL IV EMULSION 10MG/ML 100 ML IV PRN (01:00)
[2017-08-25] MEDS: ONDANSETRON HCL 4 MG ORAL DISINTEGRATING TAB SL SCH ×6 (01:35→22:05)
[2017-08-25] MEDS: SODIUM CHLORIDE FLUSH 10 ML SYR INJ PRN ×8 (02:00→23:00)
[2017-08-25] MEDS: IPRATROPIUM BROMIDE 0.02% 2.5 ML NEB NEB SCH ×4 (02:35→20:31)
[2017-08-25] MEDS: FUROSEMIDE INJ 10 MG/ML 4 ML VIAL IV SCH ×2 (04:55→18:48)
--- NOTE | 2017-08-25 05:15 | Progress Note ---
DATE: August 24, 2017 PULMONARY CRITICAL CARE PROGRESS NOTE The patient continues to have thick secretions from the endotracheal tube. He remains on assist control mode of ventilation. He had a temperature of 99.8 last night. He remains on Diprivan for sedation. He is awaiting cardiology evaluation. OBJECTIVE VITAL SIGNS: T-max was 99.8. The blood pressure is 147/65. He is on an assist control ventilation. HEENT: No facial swelling or erythema. Patient has an oral endotracheal tube. NECK: No JVD or thyromegaly. CARDIAC: Regular rhythm with normal S1 and S2. LUNGS: Auscultation of lungs reveals rhonchus breath sounds bilaterally. There is no wheezing. ABDOMEN: Soft and nontender. There is no rebound or guarding. EXTREMITIES: PICC line in place. There is no leg edema. LABORATORY DATA: The BUN to creatinine ratio is 47 to 1.97. The potassium is 3.0. The white blood cell count is 10.5 and hemoglobin is 11.9. The platelet count is 196,000. IMPRESSIONS 1. Community-acquired pneumonia, possibly secondary to a viral infection. 2. Prior heart surgeries and mild to moderate pulmonary artery hypertension related to heart disease. 3. Bzwjy-py-ovdgmgn renal disease. 4. Chronic obstructive pulmonary disease. PLAN 1. Continue the current antibiotics. We are awaiting culture results including a nasal swab for MRSA and urine antigen for legionella. 2. Patient is awaiting a cardiology evaluation with Dr. Marcus. 3. Continue to monitor the renal function closely. 4. Continue assist control mode of ventilation. 5. Repeat ABG. 6. Propofol as needed. Greater than 35 minutes in direct critical care time. Job#: [id number]
[2017-08-25 05:45] LABS: BASOPHILS # (AUTO) 0.1 (0.0-0.1); BASOPHILS % 0.8 % (0.0-1.0); EOSINOPHILS # (AUTO) 0.3 (0.0-0.4); HEMOGLOBIN 11.3 g/dL (14.0-18.0); LYMPHOCYTES # (AUTO) 1.2 (1.0-3.2); LYMPHOCYTES % 10.6 % (18.0-39.1); MEAN CORPUSCULAR HGB CONC 32.3 g/dL (31-35); MEAN CORPUSCULAR VOLUME 96.2 fL (81-99); MONOCYTES # (AUTO) 0.8 (0.2-0.8); MONOCYTES % 6.7 % (4.4-11.3); NEUTROPHILS # (AUTO) 8.4 (2.1-6.9); NEUTROPHILS % 74.8 % (38.7-80.0); PLATELET COUNT 221 x10e3/uL (140-360); RED BLOOD COUNT 3.64 x10e6/uL (4.3-5.7); RED CELL DISTRIBUTION WIDTH 13.2 % (11.7-14.4)
--- NOTE | 2017-08-25 06:10 | Diagnostic Imaging Report ---
EXAMINATION: CHEST SINGLE (PORTABLE) INDICATION: Respiratory failure COMPARISON: 08/24/2017 FINDINGS: TUBES and LINES: Endotracheal and nasogastric tubes are in good position. Right upper extremity PICC line is stable. LUNGS: Lungs are not well inflated. Lungs are clear. There is mild prominence of the central pulmonary vasculature, consistent with pulmonary venous congestion. Improving airspace disease involving the right hemithorax. PLEURA: No pleural effusion or pneumothorax. HEART AND MEDIASTINUM: The cardiomediastinal silhouette is unremarkable. BONES AND SOFT TISSUES: No acute osseous lesion. Soft tissues are unremarkable. UPPER ABDOMEN: No free air under the diaphragm. IMPRESSION: No acute thoracic abnormality. Improving airspace disease involving the right hemithorax. Signed by: Dr. King Obando M.D. on 08/25/2017 6:06 AM
[2017-08-25 06:12] LABS: ALBUMIN 1.7 g/dL (3.5-5.0); ALBUMIN/GLOBULIN RATIO 0.4 (0.8-2.0); ANION GAP 13.3 mmol/L (8-16); CALCIUM 8.6 mg/dL (8.4-10.2); CREATININE, SERUM 2.14 mg/dL (0.72-1.25); MAGNESIUM 1.7 MG/DL (1.3-2.1); POTASSIUM 3.3 mmol/L (3.5-5.1)
[2017-08-25] MEDS: CLOPIDOGREL BISULFATE 75 MG TAB PO SCH (09:49)
[2017-08-25] MEDS: OSELTAMIVIR PHOSPHATE 75 MG CAP PO SCH ×2 (09:50→18:48)
[2017-08-25] MEDS: FLUOXETINE HCL 10 MG CAP PO SCH (09:50)
[2017-08-25] MEDS: PANTOPRAZOLE SODIUM 40 MG SUSPDR.PKT PO SCH (09:50)
[2017-08-25] MEDS: BENZONATATE 100 MG CAP PO SCH ×4 (09:50→22:00)
--- NOTE | 2017-08-25 10:16 | Consultation ---
DATE OF CONSULTATION: August 25, 2017 CARDIAC CONSULTATION REASON FOR CONSULTATION: Respiratory failure. HISTORY: This is a 77-year-old gentleman who is known with multiple medical health problems. His cardiac issue includes coronary artery disease status post coronary artery bypass surgery in 2000. For severe aortic stenosis, he had aortic valve replacement in 2012, but at that time, no mitral valve surgery was done. He had moderate mitral stenosis. He does have also severe peripheral arterial vascular disease in addition to carotid disease. He had carotid stent in November 2014. Patient is also known with hypertension and hypercholesteremia. In 2016, he had destructive severe pneumonia. He had prolonged admission with treatment and he had good recovery. Patient was in his usual status of health for a week prior to admission. She was having fever, chills, and cough. He had treatment, and despite all of that, he continued to have severe shortness of breath. His workup was negative for flu. Patient's temperature was quite elevated. His chest x-ray is showing bilateral infiltrates. He needed to be intubated for pulmonary support. He does have chronic renal insufficiency with baseline creatinine of approximately 1.6 to 1.7. Following admission and treatment, his potassium was elevated and his renal function worsened with diuresis. Seen by renal service, pulmonary, and medicine. Cardiac consultation is obtained. I visited with the patient. He is in intensive care unit. He is intubated on ventilator. Information is taken from his and his family, nursing staff, and his medical record. CURRENT MEDICATIONS: Plavix 75 mg a day, Lasix 80 mg twice a day, Lipitor 20 mg a day, Flomax 0.4 mg a day, Protonix, benzoate, hydralazine p.r.n., metoclopramide, vancomycin, azithromycin, and ceftriaxone. ALLERGIES: NONE. PAST MEDICAL HISTORY: 1. Right internal carotid arterial stent in November 2014 using Xact 8 mm x 40 stent. 2. Cardiac catheterization in October 2012 before his valve surgery showing patency of left internal mammary artery to the LAD, saphenous venous graft to ramus, and saphenous venous graft to the OM, but the patient does have very severe advanced coronary artery disease distal to the grafts. 3. Aortic valve replacement Porcine valve on March 02, 2013. 4. Coronary artery bypass surgery in 2000. 5. Moderate mitral stenosis. 6. Hypertension. 7. Hypercholesterolemia. 8. Severe destructive pneumonia in 2015. 9. History of right amaurosis fugax. 10. History of repeated bleeding ulcer, latest in 2014. 11. Appendectomy. 12. Bilateral cataract surgery. SOCIAL HISTORY: He is . He stopped smoking in 1997. He is a social alcohol drinker. 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 FAMILY HISTORY: Father in his 70s with prostate cancer. Mother at age 78, questionable cause of . No sisters, one brother, four children, three sons, and one daughter. REVIEW OF SYSTEMS: Prior to this illness, taken from the . GENERAL: Fever and chills. HEENT: Congestion and cough. PULMONARY: Severe shortness of breath, progressively worse for a week prior to admission. CARDIAC: Surprisingly no angina, but cough and shortness of breath with acute illness. Usually he does have moderate exercise tolerance. GI: No hematemesis. No melena. : Increased frequency of urination but no hematuria or dysuria. MUSCULOSKELETAL: He does have occasional low back pain. SKIN: No skin rashes noted. NEUROLOGICAL: No altered mental status. No localized weakness. PHYSICAL EXAMINATION VITAL SIGNS: Height of 5 feet 5 inches with weight of 194 pounds. Blood pressure 120/60, heart rate of 80, respiratory rate of 18, and temperature of 98.4 Fahrenheit. GENERAL: Patient is intubated on ventilator, sedated with propofol. HEENT: Pupils are reactive. NECK: No elevation of jugular venous pulsation. CHEST: Surprisingly, clear to auscultation and percussion. HEART: Normal 1st and 2nd heart sounds with ejection systolic murmur at left sternal border. ABDOMEN: Soft with no organomegaly. No abdominal bruits. EXTREMITIES: No cyanosis. No clubbing. No edema. NEUROLOGIC: The patient is sedated on propofol, on ventilator. LABORATORY DATA: Most recent BUN and creatinine at 47 and 1.97. They were higher and potassium was at almost 6. Current white blood cell count of 10.4, hemoglobin of 11.9, hematocrit 37%, and platelet of 196,000. IMAGING: Chest x-ray is showing bilateral infiltrates, prior sternotomy. IMPRESSION AND PLAN 1. Respiratory failure. 2. By history, it is suggestive of primary febrile illness and pneumonia versus severe viral infection. 3. Patient is known with left ventricular dysfunction with old bypass surgery and diffuse disease in the next circulation distal to bypass. 4. Status post aortic valve replacement, valve seems to be appropriately functioning. 5. At least moderate mitral stenosis. 6. Chronic renal insufficiency with ATN and electrolyte imbalance. 7. Hypertension. 8. Peripheral arterial vascular disease. 9. Status post carotid stent. Patient will be treated with antibiotics. Adjustment of diuresis. Watching renal function. Trying to evaluate cardiac status and volume status. Definitely, the fact he does have significant valvular and coronary artery disease with any illness, he is more prone to have complication and his status to be worsened. We discussed the care with the family and explained the situation for them. We will follow the patient's progression with you. Prognosis is guarded. Job#: [id number] SAK
[2017-08-25] MEDS ORDERED: POTASSIUM CHLORIDE 20 MEQ TAB CR PO ONE (12:30)
--- NOTE | 2017-08-25 13:18 | Consultation ---
DATE OF CONSULTATION: August 25, 2017 REASON FOR CONSULTATION: CHF. HISTORY OF PRESENT ILLNESS: This is a 77-year-old male well known to practice with history of coronary artery disease status post CABG in 2000, severe aortic stenosis status post AVR in [address] Abbasi, carotid disease status post right ICA stenting in 2014, hypertension, and hypercholesterolemia. The patient apparently came into the emergency room with complaints of shortness of breath, cough, fevers, chills, and weight loss, was noted with bronchitis by a CT scan, developed respiratory failure, in which he was intubated and currently being treated for bronchitis and also was found with some pneumonia, is being treated with antibiotic therapy. Cardiology was consulted for CHF. Patient is seen in ICU. He is vented on 45% FiO2, sinus rhythm on tele. Blood pressure is 108/57 and sats are in the 95%. The patient is unable to give any details. PAST MEDICAL HISTORY 1. Carotid artery disease, status post right ICA stent in 2014. 2. Coronary artery disease status post CABG in 2000. 3. Hypertension. 4. Hypercholesterolemia. 5. TIA in 2014. 6. GI bleed in 2014. 7. Reflux. PAST SURGICAL HISTORY 1. CABG in 2000. 2. Appendectomy in 1992. 3. Bilateral cataract surgeries in 2011. 4. Status post AVR bioprosthesis in 2012. 5. Right internal carotid artery stent in 2014. FAMILY HISTORY: Mother at age 78, cause questionable. Father in the 70s with history of prostate cancer. One brother, three sons; apparently, they are healthy. SOCIAL HISTORY: He is . 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 Occasional alcohol. No history of tobacco use. ALLERGIES: No known allergies. HOME MEDICATIONS: Plavix 75 mg daily, atorvastatin 20 mg daily, metoprolol 50 mg twice a day, lisinopril 5 mg in a.m. and 10 mg in p.m., Paxil 10 mg daily, Flomax 0.4 mg daily, ProAir inhaler q.4h., Protonix 40 mg daily, vitamin D 1 tablet weekly, and iron 1 daily. REVIEW OF SYSTEMS: Unable to obtain secondary to the patient being sedated and intubated. PHYSICAL EXAMINATION VITAL SIGNS: Temperature 99.2, pulse 99, respiratory rate 18, blood pressure 108/57, and sat 95%. GENERAL: The patient is intubated and sedated. SKIN: No rashes and no bruises noted. HEENT: Normocephalic. Pupils are equal and reactive. Extraocular movements intact. Orally intubated. Oral mucosa moist. No thyromegaly. No JVD. No carotid bruits noted. HEART: Regular rate and rhythm. PMI at fourth and fifth intercostal space. LUNGS: Bilateral rhonchi and crackles throughout. ABDOMEN: Soft, nontender, and nondistended. No organomegaly noted. : Tom at bedside. MUSCULOSKELETAL: Generalized weakness throughout. VASCULAR: +2 bilateral radial pulses, +1 PT and DP pulses bilaterally. NEUROLOGIC: Unable to assess. Currently, the patient is sedated. LABORATORY DATA: White count 11.3, hemoglobin 11, hematocrit 35, and platelets 221. Sodium 142, potassium 3.3, chloride 97, bicarb 35, BUN 52, creatinine 2.1, and BNP 208. CT of chest is showing diffuse bronchial thickening such as bronchitis, COPD changes, and multifocal nodules, right more than the left. ASSESSMENT AND PLAN Respiratory failure. Chronic obstructive pulmonary disease exacerbation. Pneumonia. Acute renal injury. Coronary artery disease status post coronary artery bypass grafting/aortic valve replacement. Carotid artery disease status post right internal carotid artery stent. PLAN 1. The patient presents with shortness of breath, cough, fevers, COPD exacerbation, and also with pneumonia, is being treated with antibiotic therapy. 2. Antibiotics per primary service. 3. The patient is on ventilator, being managed by Pulmonary. 4. We will continue Plavix therapy for now given his CAD history. 5. Unable to start any antihypertensives secondary to blood pressure being marginal. 6. Echo was done and read by cardiology attending, EF greater than 40%, bioprosthetic aortic valve, appears to be functioning normally, however, does show that he does have ucqwsyem-dz-xhpikn mitral stenosis. 7. Renal on the case, is being diuresed currently. 8. We will continue to monitor patient and adjust cardiac therapy as course progresses. Thank you very much for this consult. Agree with note DICTATED BY: Ulises Noyola NP Job#: [id number] SAK MTDD
[2017-08-25] MEDS ORDERED: METHYLPREDNISOLONE SOD SUCC 125 MG/2ML VIAL IV SCH (15:15)
[2017-08-25] MEDS: ALBUTEROL SULF 0.083% NEB SOLN 3 ML NEB NEB PRN (16:10)
--- NOTE | 2017-08-25 17:36 | Diagnostic Imaging Report ---
EXAM: Neck Ultrasound INDICATION: \S\Mass on the neck \S\[id number] \S\1636 \S\Y COMPARISON: Chest x-ray performed on the same date. TECHNIQUE: Transverse and longitudinal images of the neck were obtained. FINDINGS: See impression. IMPRESSION: No definite mass or discrete fluid collection visualized in the neck. Heterogeneous echotexture shadowing area in the inferior, slightly left neck, may correspond to trachea and endotracheal tube. If there is high clinical concern for neck mass, consider obtaining soft tissue neck CT for better evaluation. Signed by: Dr. Rafael Markham MD on 08/25/2017 5:32 PM
[2017-08-25] MEDS: METOPROLOL TARTRATE 25 MG TAB PO SCH (18:48)
[2017-08-25] MEDS: CEFTRIAXONE SOD 1 GM VIAL IV SCH (18:48)
[2017-08-25] MEDS: VANCOMYCIN HCL 750 MG in SODIUM CHLORIDE 0.9% 100 ML 150 ML IV SCH (18:49)
[2017-08-25] MEDS: AZITHROMYCIN 500MG/NS 250 ML 250 ML IV SCH (18:49)
[2017-08-25] MEDS: ATORVASTATIN 20 MG TAB PO SCH (22:05)
[2017-08-25] MEDS: TAMSULOSIN HCL 0.4 MG CAP PO SCH (22:05)
[2017-08-25] MEDS: FAMOTIDINE 20 MG/2 ML VIAL IV SCH (22:05)
[2017-08-26] VITALS (89 sets, daily range): BP systolic 96–185; BP diastolic 47–87
[2017-08-26] MEDS: BENZONATATE 100 MG CAP PO SCH ×7 (02:00→23:12)
[2017-08-26] MEDS: IPRATROPIUM BROMIDE 0.02% 2.5 ML NEB NEB SCH ×4 (02:05→18:40)
[2017-08-26] MEDS: SODIUM CHLORIDE FLUSH 10 ML SYR INJ PRN ×6 (03:00→22:00)
[2017-08-26] MEDS: ONDANSETRON HCL 4 MG ORAL DISINTEGRATING TAB SL SCH ×6 (03:05→21:55)
[2017-08-26] MEDS: FUROSEMIDE INJ 10 MG/ML 4 ML VIAL IV SCH ×2 (05:05→16:53)
[2017-08-26 05:56] LABS: BASOPHILS # (AUTO) 0.1 (0.0-0.1); BASOPHILS % 0.5 % (0.0-1.0); EOSINOPHILS # (AUTO) 0.5 (0.0-0.4); EOSINOPHILS % 4.2 % (0.0-6.0); HEMATOCRIT 34.7 % (38.2-49.6); LYMPHOCYTES # (AUTO) 1.2 (1.0-3.2); LYMPHOCYTES % 10.1 % (18.0-39.1); MEAN CORPUSCULAR HEMOGLOBIN 31.1 pg (28-32); MEAN CORPUSCULAR HGB CONC 31.7 g/dL (31-35); MONOCYTES # (AUTO) 0.6 (0.2-0.8); MONOCYTES % 4.7 % (4.4-11.3); NEUTROPHILS # (AUTO) 9.2 (2.1-6.9); NEUTROPHILS % 76.3 % (38.7-80.0); PLATELET COUNT 247 x10e3/uL (140-360); RED BLOOD COUNT 3.54 x10e6/uL (4.3-5.7); RED CELL DISTRIBUTION WIDTH 13.3 % (11.7-14.4)
[2017-08-26 06:00] LABS: INR 0.96; PROTHROMBIN TIME 13.3 seconds (11.9-14.5)
[2017-08-26 06:01] LABS: PARTIAL THROMBOPLASTIN TIME 39.5 seconds (23.8-35.5)
[2017-08-26] MEDS: PROPOFOL IV EMULSION 10MG/ML 100 ML IV PRN (06:10)
[2017-08-26 06:11] LABS: ALBUMIN 1.7 g/dL (3.5-5.0); ALBUMIN/GLOBULIN RATIO 0.4 (0.8-2.0); ANION GAP 12.8 mmol/L (8-16); CALCIUM 8.7 mg/dL (8.4-10.2); CREATININE, SERUM 2.11 mg/dL (0.72-1.25); POTASSIUM 3.8 mmol/L (3.5-5.1)
[2017-08-26] MEDS: ALBUTEROL SULF 0.083% NEB SOLN 3 ML NEB NEB PRN ×3 (07:18→18:40)
--- NOTE | 2017-08-26 07:21 | Diagnostic Imaging Report ---
Examination: Single AP view of the chest. COMPARISON: 08/25/2017 INDICATION: Atypical pneumonia DISCUSSION: See impression IMPRESSION: 1. Endotracheal tube, enteric tube, and right upper extremity PICC are unchanged in position. 2. Aeration of the right lung continues to improve relative to 08/25/2017. No new airspace consolidations. 3. Stable cardiomediastinal contour with pulmonary venous congestion. Signed by: Dr. Ulises Alicea M.D. on 08/26/2017 7:18 AM
[2017-08-26] MEDS: PANTOPRAZOLE SODIUM 40 MG SUSPDR.PKT PO SCH (09:51)
[2017-08-26] MEDS: FLUOXETINE HCL 10 MG CAP PO SCH (09:51)
[2017-08-26] MEDS: METOPROLOL TARTRATE 25 MG TAB PO SCH ×2 (09:51→16:54)
[2017-08-26] MEDS: CLOPIDOGREL BISULFATE 75 MG TAB PO SCH (09:51)
[2017-08-26] MEDS: OSELTAMIVIR PHOSPHATE 75 MG CAP PO SCH ×2 (09:51→16:54)
[2017-08-26] MEDS: VANCOMYCIN HCL 750 MG in SODIUM CHLORIDE 0.9% 100 ML 150 ML IV SCH (12:11)
[2017-08-26 12:39] LABS: ABG HCO3 40 mmol/L (23-28); ABG PCO2 57 mmHg (41-51); ABG PH 7.46 (7.31-7.41); ABG PO2 73 mmHg (80-105)
--- NOTE | 2017-08-26 13:09 | Diagnostic Imaging Report ---
PROCEDURE:US RETROPERITONEAL ( KIDNEY ). COMPARISON:Renal ultrasound 08/22/2017. INDICATIONS:DAGO TECHNIQUE: Ward-scale and color sonographic images of the bilateral kidneys and bladder where obtained in transverse and longitudinal planes. FINDINGS: RIGHT KIDNEY: 12.8 x 5.1 x 4.6 cm, cortex 1.6 cm Cysts: None Solid masses: None Stones: None Hydronephrosis: None Echogenicity: Normal LEFT KIDNEY: 9.2 x 5.0 x 4.5 cm, cortex 2.1 cm Cysts: None Solid masses: None Stones: 1.6 x 0.8 x 1.9 cm echogenic foci in lower pole. Hydronephrosis: None. Echogenicity: Normal. Bladder: Decompressive Tom catheter in place. CONCLUSION: 1. Unchanged 1.6 cm nonobstructing stone lower pole of the left kidney. 2. No hydronephrosis. Dictated by: Artemio Zelaya M.D. on 08/26/2017 at 13:17 Electronically approved by: Artemio Zelaya M.D. on 08/26/2017 at 13:17
--- NOTE | 2017-08-26 13:29 | Progress Note ---
DATE: August 26, 2017 INTERNAL MEDICINE PROGRESS NOTE SUBJECTIVE: The patient was tried to be extubated today. He was unable to wean off the ventilator machine. We are going to try tomorrow. PHYSICAL EXAMINATION HEART: Regular rhythm. Normal S1 and S2 sounds. LUNGS: Clear bilaterally. ABDOMEN: Soft. EXTREMITIES: No evidence of cyanosis, edema or trauma. VITAL SIGNS: Blood pressure 160/60, temperature 98 degrees, heart rate 99 per minute, respiratory rate 16 per minute, oxygen saturation 99%. LABS: BMP: Sodium 142, potassium 3.8, chloride 97, CO2 36, BUN 67, creatinine 2.11, glucose 124. CBC: White blood count 12.0, hemoglobin 11.0, hematocrit 34.7, platelet count 247,000. PT 13.3, INR 0.96, PTT 39.5. AST 82, ALT 50, total bilirubin 0.9, alkaline phosphatase 146,000. FINAL IMPRESSION 1. Acute respiratory failure secondary to chronic obstructive pulmonary disease exacerbation secondary to pneumonia. 2. Chronic obstructive pulmonary disease exacerbation secondary to pneumonia. 3. Bilateral pneumonia. 4. Benign prostatic hypertrophy. 5. Hypertension with hypertensive nephropathy. 6. Chronic renal failure, stage 3. 7. Hypercholesterolemia. 8. Gastroesophageal reflux disease. 9. Obesity. PLAN OF TREATMENT: Continue ventilator support. We are going to try to wean him from the ventilator tomorrow again. Continue albuterol and Atrovent q.2-6 h. and Zithromax 250 mg IV piggyback daily. Continue dopamine as needed for hypotension; Tylenol 350 mg q.6 h. as needed; Tessalon 100 mg q.4 h. as needed for cough; Flomax 0.4 mg daily; hydralazine 20 mg q.4 h. as needed for hypertension; Plavix 75 mg daily. Continue with Tamiflu 75 mg twice a day; metoprolol 25 mg twice a day; vancomycin 1 g IV piggyback once a day; metoclopramide 10 mg q.6 h.; fluoxetine 10 mg daily; ceftriaxone 1 g IV piggyback daily; Lipitor 20 mg daily; Pepcid 20 mg at bedtime; Zofran 4 mg IV q.4 h. as needed; Protonix 40 mg daily; furosemide 60 mg q.12 h. We have discussed with the briefcase sewer, the nurse, and the family at the bedside. Time spent was 1 hour. Job#: [id number]
[2017-08-26] MEDS: CEFTRIAXONE SOD 1 GM VIAL IV SCH (16:53)
[2017-08-26] MEDS: AZITHROMYCIN 500MG/NS 250 ML 250 ML IV SCH (17:00)
[2017-08-26] MEDS: TAMSULOSIN HCL 0.4 MG CAP PO SCH (21:55)
[2017-08-26] MEDS: FAMOTIDINE 20 MG/2 ML VIAL IV SCH (21:55)
[2017-08-26] MEDS: ATORVASTATIN 20 MG TAB PO SCH (21:55)
[2017-08-27] VITALS (93 sets, daily range): BP systolic 98–174; BP diastolic 38–90
[2017-08-27] MEDS: IPRATROPIUM BROMIDE 0.02% 2.5 ML NEB NEB SCH ×4 (00:10→19:13)
[2017-08-27] MEDS: ONDANSETRON HCL 4 MG ORAL DISINTEGRATING TAB SL SCH ×6 (02:45→23:05)
[2017-08-27] MEDS: SODIUM CHLORIDE FLUSH 10 ML SYR INJ PRN ×3 (03:00→05:00)
[2017-08-27] MEDS: FUROSEMIDE INJ 10 MG/ML 4 ML VIAL IV SCH ×2 (03:00→15:31)
[2017-08-27] MEDS: PROPOFOL IV EMULSION 10MG/ML 100 ML IV PRN ×2 (03:10→10:00)
[2017-08-27 06:08] LABS: BASOPHILS # (AUTO) 0.1 (0.0-0.1); BASOPHILS % 0.4 % (0.0-1.0); EOSINOPHILS # (AUTO) 0.5 (0.0-0.4); EOSINOPHILS % 3.6 % (0.0-6.0); HEMATOCRIT 32.7 % (38.2-49.6); HEMOGLOBIN 10.3 g/dL (14.0-18.0); LYMPHOCYTES # (AUTO) 1.1 (1.0-3.2); LYMPHOCYTES % 8.5 % (18.0-39.1); MEAN CORPUSCULAR HEMOGLOBIN 31.3 pg (28-32); MEAN CORPUSCULAR HGB CONC 31.5 g/dL (31-35); MEAN CORPUSCULAR VOLUME 99.4 fL (81-99); MONOCYTES # (AUTO) 0.6 (0.2-0.8); MONOCYTES % 4.5 % (4.4-11.3); NEUTROPHILS # (AUTO) 10.1 (2.1-6.9); NEUTROPHILS % 80.5 % (38.7-80.0); PLATELET COUNT 249 x10e3/uL (140-360); RED BLOOD COUNT 3.29 x10e6/uL (4.3-5.7); RED CELL DISTRIBUTION WIDTH 13.3 % (11.7-14.4)
[2017-08-27 06:33] LABS: ALBUMIN 1.8 g/dL (3.5-5.0); ALBUMIN/GLOBULIN RATIO 0.4 (0.8-2.0); ANION GAP 14.8 mmol/L (8-16); CALCIUM 8.5 mg/dL (8.4-10.2); CREATININE, SERUM 2.2 mg/dL (0.72-1.25); POTASSIUM 3.8 mmol/L (3.5-5.1)
[2017-08-27] MEDS: ALBUTEROL SULF 0.083% NEB SOLN 3 ML NEB NEB PRN ×2 (07:05→13:30)
[2017-08-27] MEDS: CLOPIDOGREL BISULFATE 75 MG TAB PO SCH (10:25)
[2017-08-27] MEDS: METOPROLOL TARTRATE 25 MG TAB PO SCH ×2 (10:25→16:40)
[2017-08-27] MEDS: OSELTAMIVIR PHOSPHATE 75 MG CAP PO SCH ×2 (10:26→17:17)
[2017-08-27] MEDS: BENZONATATE 100 MG CAP PO SCH (10:26)
[2017-08-27] MEDS: FLUOXETINE HCL 10 MG CAP PO SCH (10:26)
[2017-08-27] MEDS: PANTOPRAZOLE SODIUM 40 MG SUSPDR.PKT PO SCH (10:26)
--- NOTE | 2017-08-27 12:59 | Progress Note ---
DATE: August 27, 2017 INTERNAL MEDICINE PROGRESS NOTE SUBJECTIVE: The patient is still on a ventilator. We are going to try to wean him off the ventilator today. PHYSICAL EXAMINATION VITAL SIGNS: Blood pressure 104/47. Temperature 98 degrees. Heart rate 82 per minute. Respiratory rate 16 per minute. Oxygen saturation 99%. HEART: Regular rhythm. Normal S1, S2 sounds. LUNGS: Decreased breath sounds bilaterally. ABDOMEN: Soft. EXTREMITIES: No evidence of cyanosis, edema or trauma. BLOOD WORK: We have BMP with a sodium of 143, potassium 3.8, chloride 96, CO2 36, BUN 80, creatinine 2.20. Glucose 124. On the CBC, white blood count is 12.5, hemoglobin 10.3, hematocrit 32.7, platelet count 249,000. PT 13.3, PTT 39.5, INR 0.96. AST 82, ALT 56, total bilirubin 0.6, alkaline phosphatase 137. FINAL IMPRESSION 1. Acute respiratory failure, most likely secondary to chronic obstructive pulmonary disease exacerbation and pneumonia. 2. Chronic obstructive pulmonary disease exacerbation secondary to bilateral pneumonia. 3. Bilateral pneumonia. 4. History of coronary artery disease. 5. Aortic valve replacement. 6. Qcffm-ne-bxdbdyr renal insufficiency, stage 3. PLAN OF TREATMENT: Continue albuterol and Atrovent. Continue ventilator support. Continue Zithromax 250 mg IV piggyback daily. Rocephin 1 g IV piggyback daily. Continue on Tessalon 100 mg q.8 h. as needed for cough. Flomax 0.4 mg daily. Hydralazine 20 mg IV push q.4 h. as needed for hypertension. Propofol for sedation. Plavix 75 mg daily. Tamiflu 75 mg twice a day. Metoprolol 25 mg twice a day. Vancomycin 1 g IV piggyback once a day. Metoclopramide 10 mg IV q.6 h. Fluoxetine 10 mg daily. Lipitor 20 mg daily. Pepcid 20 mg at bedtime. Protonix 40 mg daily. Furosemide 60 mg IV twice a day. We are going to hold on the Lipitor because of elevated liver function test. I discussed the case with the nurse. I discussed the case with the family at the bedside. Weaning is in progress, and we will go from there. Job#: [id number]
[2017-08-27] MEDS: CEFTRIAXONE SOD 1 GM VIAL IV SCH (15:19)
[2017-08-27] MEDS: VANCOMYCIN HCL 750 MG in SODIUM CHLORIDE 0.9% 100 ML 150 ML IV SCH (15:34)
[2017-08-27] MEDS: AZITHROMYCIN 500MG/NS 250 ML 250 ML IV SCH (17:17)
[2017-08-27] MEDS: METHYLPREDNISOLONE SOD SUCC 125 MG/2ML VIAL IV SCH (21:01)
[2017-08-27] MEDS: TAMSULOSIN HCL 0.4 MG CAP PO SCH (21:01)
[2017-08-27] MEDS: FAMOTIDINE 20 MG/2 ML VIAL IV SCH (21:11)
[2017-08-27] MEDS: ATORVASTATIN 20 MG TAB PO SCH (21:12)
--- NOTE | 2017-08-27 21:38 | Diagnostic Imaging Report ---
EXAM: CHEST SINGLE (PORTABLE), AP 1 view DATE: 08/27/2017 5:00 AM Time stamp on exam: 0552 hrs INDICATION: Intubated COMPARISON: AP view of the chest August 26, 2017 FINDINGS: LINES/TUBES: Endotracheal tube terminates 5 cm above the federica. Nasal/orogastric tube courses below the diaphragm out of field of view. Single position right approach PICC. LUNGS: Persistent airspace opacities bilaterally, predominantly in the right lung. PLEURA: Trace right pleural effusion. HEART AND MEDIASTINUM: Normal size and contour. BONES AND SOFT TISSUES: No acute findings. IMPRESSION: Stable appearance of multifocal pneumonia. Signed by: Dr. Patrizia Roper M.D. on 08/27/2017 9:34 PM
[2017-08-27] MEDS: HYDRALAZINE HCL 20 MG/ML VIAL IV PRN (23:50)
[2017-08-28] VITALS (95 sets, daily range): BP systolic 64–175; BP diastolic 32–73
[2017-08-28] MEDS: PROPOFOL IV EMULSION 10MG/ML 100 ML IV PRN ×2 (00:35→07:02)
[2017-08-28] MEDS: IPRATROPIUM BROMIDE 0.02% 2.5 ML NEB NEB SCH ×4 (03:20→19:02)
[2017-08-28] MEDS: ONDANSETRON HCL 4 MG ORAL DISINTEGRATING TAB SL SCH ×6 (03:22→21:23)
[2017-08-28] MEDS: FUROSEMIDE INJ 10 MG/ML 4 ML VIAL IV SCH ×2 (04:41→10:39)
[2017-08-28 06:03] LABS: BASOPHILS % 0.2 % (0.0-1.0); HEMATOCRIT 29.9 % (38.2-49.6); HEMOGLOBIN 9.7 g/dL (14.0-18.0); LYMPHOCYTES # (AUTO) 0.5 (1.0-3.2); LYMPHOCYTES % 3.2 % (18.0-39.1); MEAN CORPUSCULAR HEMOGLOBIN 31.7 pg (28-32); MEAN CORPUSCULAR HGB CONC 32.4 g/dL (31-35); MEAN CORPUSCULAR VOLUME 97.7 fL (81-99); MONOCYTES # (AUTO) 0.1 (0.2-0.8); MONOCYTES % 0.5 % (4.4-11.3); NEUTROPHILS % 95.2 % (38.7-80.0); PLATELET COUNT 251 x10e3/uL (140-360); RED BLOOD COUNT 3.06 x10e6/uL (4.3-5.7); RED CELL DISTRIBUTION WIDTH 13.1 % (11.7-14.4)
[2017-08-28 06:36] LABS: ALBUMIN 1.8 g/dL (3.5-5.0); ALBUMIN/GLOBULIN RATIO 0.4 (0.8-2.0); ANION GAP 14.2 mmol/L (8-16); CALCIUM 8.3 mg/dL (8.4-10.2); CREATININE, SERUM 2.2 mg/dL (0.72-1.25); POTASSIUM 4.2 mmol/L (3.5-5.1)
--- NOTE | 2017-08-28 06:48 | Diagnostic Imaging Report ---
EXAM: CHEST SINGLE (PORTABLE), AP 1 view DATE: 08/28/2017 6:30 AM Time stamp on exam: 0552 hours INDICATION: Intubated COMPARISON: AP view of the chest August 27, 2017 FINDINGS: LINES/TUBES: Stable endotracheal tube, right approach PICC and nasal/orogastric tube LUNGS: Stable bilateral airspace opacities, greatest in the right lung. PLEURA: Small bilateral pleural effusions HEART AND MEDIASTINUM: Stable BONES AND SOFT TISSUES: No acute findings. IMPRESSION: No interval change Signed by: Dr. Patrizia Roper M.D. on 08/28/2017 6:44 AM
[2017-08-28] MEDS: PANTOPRAZOLE SODIUM 40 MG SUSPDR.PKT PO SCH (10:36)
[2017-08-28] MEDS: FLUOXETINE HCL 10 MG CAP PO SCH (10:36)
[2017-08-28] MEDS: OSELTAMIVIR PHOSPHATE 75 MG CAP PO SCH ×2 (10:36→18:30)
[2017-08-28] MEDS: METOPROLOL TARTRATE 25 MG TAB PO SCH ×2 (10:36→16:21)
[2017-08-28] MEDS: CLOPIDOGREL BISULFATE 75 MG TAB PO SCH (10:36)
[2017-08-28] MEDS: METHYLPREDNISOLONE SOD SUCC 125 MG/2ML VIAL IV SCH (10:36)
--- NOTE | 2017-08-28 12:26 | Progress Note ---
DATE: August 28, 2017 INTERNAL MEDICINE PROGRESS NOTE SUBJECTIVE: The patient is still on the ventilator. We are going to try to wean him off the ventilator today. PHYSICAL EXAM: HEART: Shows regular rhythm. Normal S1 and S2 sounds. LUNGS: Clear bilaterally. ABDOMEN: Soft. EXTREMITIES: Show no evidence of cyanosis, edema or trauma. VITAL SIGNS: Blood pressure 144/48. Temperature 98.1. Heart rate 76 per minute. Respiratory rate is 16 per minute. Oxygen saturation 98%. LABS: On the BMP: Sodium 138, potassium 4.2, chloride 96, CO2 33, BUN 89, creatinine 2.20, glucose 181. On the CBC: White blood count 14.08, hemoglobin 9.7, hematocrit 29.9, platelet count 251,000. PT 13.3, INR 0.96, PTT 39.5. AST 68, ALT 56, total bilirubin 0.6, alkaline phosphatase 128. FINAL IMPRESSION: 1. Acute respiratory failure secondary to chronic obstructive pulmonary disease exacerbation secondary to pneumonia. 2. Aspiration pneumonia. 3. Chronic obstructive pulmonary disease exacerbation. 4. Acute on chronic renal failure stage 3. 5. Moderate to severe aortic stenosis. 6. Coronary artery disease status post coronary artery bypass graft and aortic valve replacement. PLAN OF TREATMENT: Continue ventilator support. We are going to try CPAP today, and if he is able to keep the oxygen more than 90% and not show any evidence of fatigue, patient might be able to be extubated. We are going to continue albuterol and Atrovent. In the meantime, Zithromax 250 mg IV piggyback once a day. Fluoxetine 10 mg daily. Ceftriaxone 1 gram once a day. Lipitor 20 mg daily. He is off of the propofol because we are going to try to extubate him. Continue Zofran 4 mg IV q.4 h. as needed. Protonix 40 mg daily. Methylprednisolone 60 mg IV twice a day. Vancomycin 1 gram IV piggyback once a day. Metoclopramide 10 mg q.6 h. Flomax 0.4 mg at bedtime. Hydralazine 20 mg IV q.4 h. as needed. Furosemide 60 mg daily. Pepcid 20 mg daily. Plavix 75 mg daily. He taking also Tamiflu 75 mg twice a day. Metoprolol 25 mg twice a day. I discussed the case with the family and the bedside nurse. Weaning process will happen today and then may be transferred to [facility] tomorrow if he gets extubated, as long as he is doing well. Job#: [id number] EV
[2017-08-28] MEDS ORDERED: AMIODARONE HCL 360MG 200 ML IV PRN (13:00)
[2017-08-28] MEDS ORDERED: AMIODARONE HCL 150 MG/100 ML BAG IV ONE (13:00)
[2017-08-28] MEDS ORDERED: LORAZEPAM INJ 2 MG/ML VIAL ONE (13:02)
[2017-08-28] MEDS ORDERED: AMIODARONE 900MG 500 ML IV SCH (13:13)
[2017-08-28] MEDS: AZITHROMYCIN 500MG/NS 250 ML 250 ML IV SCH (18:30)
[2017-08-28] MEDS ORDERED: METHYLPREDNISOLONE SOD SUCC 125 MG/2ML VIAL IV SCH (21:00)
[2017-08-28] MEDS: FAMOTIDINE 20 MG/2 ML VIAL IV SCH (21:06)
[2017-08-28] MEDS: CEFTRIAXONE SOD 1 GM VIAL IV SCH (21:07)
[2017-08-28] MEDS: METHYLPREDNISOLONE SOD SUCC 40 MG/ML VIAL IV SCH (21:07)
[2017-08-28] MEDS: TAMSULOSIN HCL 0.4 MG CAP PO SCH (21:12)
[2017-08-28] MEDS: ATORVASTATIN 20 MG TAB PO SCH (21:12)
[2017-08-29] VITALS (73 sets, daily range): BP systolic 115–171; BP diastolic 45–74
[2017-08-29] MEDS: ONDANSETRON HCL 4 MG ORAL DISINTEGRATING TAB SL SCH ×6 (02:00→21:01)
[2017-08-29] MEDS: IPRATROPIUM BROMIDE 0.02% 2.5 ML NEB NEB SCH ×4 (03:38→20:15)
[2017-08-29 05:37] LABS: BASOPHILS % 0.2 % (0.0-1.0); HEMATOCRIT 27.7 % (38.2-49.6); HEMOGLOBIN 8.9 g/dL (14.0-18.0); LYMPHOCYTES # (AUTO) 0.7 (1.0-3.2); LYMPHOCYTES % 3.5 % (18.0-39.1); MEAN CORPUSCULAR HEMOGLOBIN 31.2 pg (28-32); MEAN CORPUSCULAR HGB CONC 32.1 g/dL (31-35); MEAN CORPUSCULAR VOLUME 97.2 fL (81-99); MONOCYTES # (AUTO) 0.6 (0.2-0.8); MONOCYTES % 3.2 % (4.4-11.3); NEUTROPHILS % 92.4 % (38.7-80.0); PLATELET COUNT 263 x10e3/uL (140-360); RED BLOOD COUNT 2.85 x10e6/uL (4.3-5.7); RED CELL DISTRIBUTION WIDTH 12.5 % (11.7-14.4)
[2017-08-29 06:06] LABS: ALBUMIN 1.9 g/dL (3.5-5.0); ALBUMIN/GLOBULIN RATIO 0.5 (0.8-2.0); ANION GAP 14.8 mmol/L (8-16); CALCIUM 8.2 mg/dL (8.4-10.2); CREATININE, SERUM 2.33 mg/dL (0.72-1.25); POTASSIUM 3.8 mmol/L (3.5-5.1)
--- NOTE | 2017-08-29 06:37 | Diagnostic Imaging Report ---
EXAM: CHEST SINGLE (PORTABLE), AP 1 view DATE: 08/29/2017 6:30 AM Time stamp on exam: 0605 hours INDICATION: Respiratory failure COMPARISON: AP view of the chest June 28, 2018 FINDINGS: LINES/TUBES: Stable endotracheal tube, right approach PICC and partially visualized nasal/orogastric tube. LUNGS: Stable bilateral airspace opacities, greatest in the right lung. PLEURA: No effusions or pneumothorax. HEART AND MEDIASTINUM: Stable. BONES AND SOFT TISSUES: No acute findings. IMPRESSION: No interval change. Signed by: Dr. Patrizia Roper M.D. on 08/29/2017 6:34 AM
[2017-08-29] MEDS: ALBUTEROL SULF 0.083% NEB SOLN 3 ML NEB NEB PRN (07:35)
[2017-08-29] MEDS: METOPROLOL TARTRATE 25 MG TAB PO SCH ×2 (09:00→17:48)
[2017-08-29] MEDS ORDERED: FUROSEMIDE INJ 10 MG/ML 4 ML VIAL IV SCH (09:00)
[2017-08-29] MEDS ORDERED: AMIODARONE 900MG 500 ML IV SCH (09:00)
[2017-08-29] MEDS: METHYLPREDNISOLONE SOD SUCC 40 MG/ML VIAL IV SCH ×2 (10:00→21:01)
[2017-08-29] MEDS: OSELTAMIVIR PHOSPHATE 75 MG CAP PO SCH (10:00)
[2017-08-29] MEDS: CEFTRIAXONE SOD 1 GM VIAL IV SCH ×2 (10:00→21:01)
[2017-08-29] MEDS: CLOPIDOGREL BISULFATE 75 MG TAB PO SCH (10:00)
[2017-08-29] MEDS: FUROSEMIDE INJ 10 MG/ML 4 ML VIAL IV SCH (10:00)
[2017-08-29] MEDS: FLUOXETINE HCL 10 MG CAP PO SCH (10:00)
[2017-08-29] MEDS: PANTOPRAZOLE SODIUM 40 MG SUSPDR.PKT PO SCH (10:00)
--- NOTE | 2017-08-29 13:01 | Progress Note ---
DATE: August 29, 2017 INTERNAL MEDICINE PROGRESS NOTE SUBJECTIVE: Patient is unweanable. We are going to try to get him off the ventilator today. PHYSICAL EXAM: HEART: Shows regular rhythm, normal S1 and S2 sounds. LUNGS: Show decreased sounds bilaterally. ABDOMEN: Soft. EXTREMITIES: Show no evidence of cyanosis, edema or trauma. FINAL IMPRESSION: 1. Acute respiratory failure secondary to chronic obstructive pulmonary disease exacerbation secondary to pneumonia. 2. Pneumonia. 3. Chronic obstructive pulmonary disease exacerbation. 4. Coronary artery disease status post coronary artery bypass graft. 5. Hypertension. 6. Benign prostatic hypertrophy. PLAN OF TREATMENT: Continue ventilator weaning. Continue albuterol and Atrovent. Continue Zithromax 250 mg daily. Continue Rocephin 1 gram IV piggyback twice a day. Continue fluoxetine 10 mg daily. Protonix 40 mg daily. Lasix 60 mg daily. Continue hydralazine 20 mg IV q.4 h. as needed. Continue amiodarone drip. Continue Flomax 0.4 mg daily. Metoprolol 25 mg twice a day. Solu-Medrol 10 mg IV twice a day. Pepcid 20 mg at bedtime. Plavix 75 mg daily. Tamiflu 75 mg twice a day. Lipitor 20 mg daily. Job#: [id number] EV
--- NOTE | 2017-08-29 13:29 | Progress Note ---
DATE: August 29, 2017 PULMONARY/CRITICAL CARE PROGRESS NOTE The patient had atrial fibrillation yesterday. The patient was started on an amiodarone drip. He subsequently converted back to normal sinus rhythm and is completing his loading dose. This morning, his enteral feedings were held, and he was placed on pressure support of 8 along with CPAP of 3. He tolerated this well with a respiratory rate of 20 to 24 and tidal volumes of 300 to 350. He was awake after stopping the sedation and in no acute distress. The patient was subsequently extubated and is tolerating nasal cannula well. OBJECTIVE VITAL SIGNS: The blood pressure is 115/50, and the pulse is 55. He is afebrile. HEENT: No facial swelling or erythema. Nasal mucosa is normal. There is a nasal cannula in place. CARDIAC: Regular rate and rhythm with normal S1 and S2. There are no murmurs or rubs. LUNGS: Auscultation of lungs reveals rhonchorous breath sounds bilaterally. There is no wheezing. ABDOMEN: Soft and nontender. There is no rebound or guarding. EXTREMITIES: No leg edema or calf tenderness. There is no cyanosis or clubbing. SKIN: No rashes. IMPRESSION 1. Ibuzz-ks-srkdzhz respiratory failure. 2. Pneumonia secondary to aspiration. 3. Chronic systolic heart failure. 4. Snxhg-lh-vmkjbyj kidney disease. 5. Chronic obstructive pulmonary disease. 6. Mild to moderate pulmonary hypertension secondary to cardiac disease. 7. Prior valve replacement. PLAN 1. Patient is extubated. 2. We will repeat the ABG at 3 o'clock. 3. Continue antibiotics. 4. Taper steroids. 5. Physical therapy. 6. Continue current cardiac regimen. 7. I discussed the case with the , nursing staff and respiratory therapy. I spent greater than 35 minutes in direct critical care time. Job#: [id number]
[2017-08-29] MEDS: AMIODARONE HCL 200 MG TAB PO SCH ×2 (17:48→21:01)
[2017-08-29] MEDS: AZITHROMYCIN 500MG/NS 250 ML 250 ML IV SCH (17:49)
[2017-08-29] MEDS: FAMOTIDINE 20 MG/2 ML VIAL IV SCH (21:01)
[2017-08-29] MEDS: ATORVASTATIN 20 MG TAB PO SCH (21:01)
[2017-08-29] MEDS: TAMSULOSIN HCL 0.4 MG CAP PO SCH (21:01)
[2017-08-30] VITALS (25 sets, daily range): BP systolic 131–167; BP diastolic 52–69
[2017-08-30] MEDS: IPRATROPIUM BROMIDE 0.02% 2.5 ML NEB NEB SCH ×4 (01:00→19:12)
[2017-08-30] MEDS: ONDANSETRON HCL 4 MG ORAL DISINTEGRATING TAB SL SCH ×4 (02:00→12:14)
[2017-08-30 05:22] LABS: BASOPHILS % 0.2 % (0.0-1.0); HEMATOCRIT 30.9 % (38.2-49.6); HEMOGLOBIN 9.8 g/dL (14.0-18.0); LYMPHOCYTES # (AUTO) 0.5 (1.0-3.2); LYMPHOCYTES % 2.8 % (18.0-39.1); MEAN CORPUSCULAR HEMOGLOBIN 31.2 pg (28-32); MEAN CORPUSCULAR HGB CONC 31.7 g/dL (31-35); MEAN CORPUSCULAR VOLUME 98.4 fL (81-99); MONOCYTES # (AUTO) 0.5 (0.2-0.8); MONOCYTES % 2.4 % (4.4-11.3); NEUTROPHILS # (AUTO) 17.7 (2.1-6.9); NEUTROPHILS % 94.1 % (38.7-80.0); PLATELET COUNT 339 x10e3/uL (140-360); RED BLOOD COUNT 3.14 x10e6/uL (4.3-5.7); RED CELL DISTRIBUTION WIDTH 12.6 % (11.7-14.4)
[2017-08-30] MEDS: AMIODARONE HCL 200 MG TAB PO SCH ×3 (05:36→23:09)
--- NOTE | 2017-08-30 05:36 | Diagnostic Imaging Report ---
EXAM: CHEST SINGLE (PORTABLE), AP 1 view DATE: 08/30/2017 4:28 AM Time stamp on exam: 0428 hours INDICATION: Respiratory distress COMPARISON: August 29, 2017 FINDINGS: LINES/TUBES: Stable right approach PICC. Interval removal of endotracheal tube and nasal/orogastric tube. LUNGS: Stable bilateral interstitial and alveolar opacities, predominantly in the right lung. PLEURA: No effusions or pneumothorax. HEART AND MEDIASTINUM: Stable appearance. BONES AND SOFT TISSUES: No acute findings. IMPRESSION: No interval change. Signed by: Dr. Patrizia Roper M.D. on 08/30/2017 5:32 AM
[2017-08-30 05:39] LABS: ALBUMIN 2.3 g/dL (3.5-5.0); ALBUMIN/GLOBULIN RATIO 0.5 (0.8-2.0); ANION GAP 15.2 mmol/L (8-16); CALCIUM 8.6 mg/dL (8.4-10.2); CREATININE, SERUM 2.07 mg/dL (0.72-1.25); POTASSIUM 4.2 mmol/L (3.5-5.1)
[2017-08-30] MEDS: ALBUTEROL SULF 0.083% NEB SOLN 3 ML NEB NEB PRN ×3 (07:03→19:12)
[2017-08-30] MEDS: METHYLPREDNISOLONE SOD SUCC 40 MG/ML VIAL IV SCH (12:13)
[2017-08-30] MEDS: FUROSEMIDE INJ 10 MG/ML 4 ML VIAL IV SCH ×2 (12:13→21:59)
[2017-08-30] MEDS: CLOPIDOGREL BISULFATE 75 MG TAB PO SCH (12:13)
[2017-08-30] MEDS: PANTOPRAZOLE SODIUM 40 MG SUSPDR.PKT PO SCH (12:14)
[2017-08-30] MEDS: FLUOXETINE HCL 10 MG CAP PO SCH (12:14)
[2017-08-30] MEDS: METOPROLOL TARTRATE 25 MG TAB PO SCH ×2 (12:16→16:35)
[2017-08-30] MEDS: CEFTRIAXONE SOD 1 GM VIAL IV SCH ×2 (12:26→21:59)
[2017-08-30] MEDS: ATORVASTATIN 20 MG TAB PO SCH (21:59)
[2017-08-30] MEDS: TAMSULOSIN HCL 0.4 MG CAP PO SCH (21:59)
[2017-08-30] MEDS: FAMOTIDINE 20 MG/2 ML VIAL IV SCH (21:59)
[2017-08-31] VITALS: BP 177/76
[2017-08-31 04:36] VITALS: BP 158/70
[2017-08-31] MEDS: AMIODARONE HCL 200 MG TAB PO SCH ×3 (06:11→21:35)
[2017-08-31] MEDS: IPRATROPIUM BROMIDE 0.02% 2.5 ML NEB NEB SCH ×4 (07:45→19:45)
[2017-08-31] MEDS: ALBUTEROL SULF 0.083% NEB SOLN 3 ML NEB NEB PRN ×4 (07:45→19:45)
[2017-08-31 07:47] VITALS: BP 138/53
[2017-08-31] MEDS: FUROSEMIDE INJ 10 MG/ML 4 ML VIAL IV SCH ×2 (09:54→21:00)
[2017-08-31] MEDS: FLUOXETINE HCL 10 MG CAP PO SCH (09:54)
[2017-08-31] MEDS: CEFTRIAXONE SOD 1 GM VIAL IV SCH ×2 (09:54→21:00)
[2017-08-31] MEDS: PANTOPRAZOLE SODIUM 40 MG SUSPDR.PKT PO SCH (09:54)
[2017-08-31] MEDS: CLOPIDOGREL BISULFATE 75 MG TAB PO SCH (09:54)
[2017-08-31] MEDS: METOPROLOL TARTRATE 25 MG TAB PO SCH ×2 (09:54→18:25)
[2017-08-31 12:18] LABS: BASOPHILS % 0.2 % (0.0-1.0); EOSINOPHILS % 0.1 % (0.0-6.0); HEMATOCRIT 34.4 % (38.2-49.6); HEMOGLOBIN 10.5 g/dL (14.0-18.0); LYMPHOCYTES # (AUTO) 1.2 (1.0-3.2); LYMPHOCYTES % 7.4 % (18.0-39.1); MEAN CORPUSCULAR HEMOGLOBIN 31.1 pg (28-32); MEAN CORPUSCULAR HGB CONC 30.5 g/dL (31-35); MEAN CORPUSCULAR VOLUME 101.8 fL (81-99); MONOCYTES # (AUTO) 1.8 (0.2-0.8); MONOCYTES % 10.7 % (4.4-11.3); NEUTROPHILS # (AUTO) 13.5 (2.1-6.9); NEUTROPHILS % 81.2 % (38.7-80.0); PLATELET COUNT 370 x10e3/uL (140-360); RED BLOOD COUNT 3.38 x10e6/uL (4.3-5.7); RED CELL DISTRIBUTION WIDTH 12.4 % (11.7-14.4)
[2017-08-31 12:44] VITALS: BP 173/68
[2017-08-31 12:56] LABS: ANION GAP 12.7 mmol/L (8-16); CALCIUM 8.7 mg/dL (8.4-10.2); CREATININE, SERUM 1.81 mg/dL (0.72-1.25); POTASSIUM 3.7 mmol/L (3.5-5.1)
[2017-08-31 16:00] VITALS: BP 164/65
--- NOTE | 2017-08-31 17:42 | Diagnostic Imaging Report ---
EXAMINATION: Head CT without contrast HISTORY: Weakness, lack of coordination, dysmetria, pneumonia COMPARISON: None. TECHNIQUE: Multidetector axial images were obtained without contrast from the foramen magnum to the vertex . The images were reconstructed using brain and bone algorithms. Thin section brain images were reformatted into coronal and sagittal planes. Image quality: Motion/streaking artifact limits the evaluation of the skull base and posterior cranial fossa. FINDINGS: Parenchyma: 1. Scattered and moderate confluent periventricular, hunter radiata and centrum semiovale white matter hypodensities, most likely nonspecific chronic microvascular ischemic changes. 2. Small hypodensities in the bilateral lentiform nuclei, anterior limb of the right internal capsule and bilateral thalami represent age indeterminate, likely chronic lacunar infarct. 3. No mass or hemorrhage. No CT evidence of acute territorial vascular insult. Extra-axial spaces:No abnormal density. No extra-axial fluid collections Brain volume: Normal for age. Ventricles: No hydrocephalus or displacement. Arteries: No density suggestive of thrombus. Dural sinuses: No abnormal density. Extra-axial spaces: No abnormal density. Foramen magnum: No mass, Chiari malformation, or basilar invagination. Sella: No obvious mass. Paranasal/mastoid sinuses: Imaged portions unremarkable. Skull/Scalp: No lytic or blastic lesions. No fractures. IMPRESSION: 1. No acute intracranial hemorrhage or CT evidence of acute territorial cortical vascular insults. 2. Moderate confluent white matter chronic microvascular ischemic changes. Superimposed acute vascular insult cannot be excluded, if clinical concern remains consider brain MRI for further evaluation. 3. Age indeterminate basal ganglia and thalami, likely chronic lacunar infarct. Signed by: Dr. Cathryn Urban M.D. on 08/31/2017 5:38 PM
[2017-08-31 20:30] VITALS: BP 182/65
[2017-08-31] MEDS: ATORVASTATIN 20 MG TAB PO SCH (21:00)
[2017-08-31] MEDS: FAMOTIDINE 20 MG/2 ML VIAL IV SCH (21:00)
[2017-08-31] MEDS: TAMSULOSIN HCL 0.4 MG CAP PO SCH (21:00)
[2017-08-31] MEDS: HYDRALAZINE HCL 20 MG/ML VIAL IV PRN (21:25)
[2017-09-01] VITALS (7 sets, daily range): BP systolic 142–161; BP diastolic 55–72
[2017-09-01] MEDS: ALBUTEROL SULF 0.083% NEB SOLN 3 ML NEB NEB PRN (01:00)
[2017-09-01] MEDS: IPRATROPIUM BROMIDE 0.02% 2.5 ML NEB NEB SCH ×4 (01:00→19:42)
[2017-09-01] MEDS: AMIODARONE HCL 200 MG TAB PO SCH ×3 (05:19→20:44)
[2017-09-01] MEDS: FUROSEMIDE INJ 10 MG/ML 4 ML VIAL IV SCH (08:35)
[2017-09-01] MEDS: CEFTRIAXONE SOD 1 GM VIAL IV SCH ×2 (08:35→20:43)
[2017-09-01] MEDS: METOPROLOL TARTRATE 25 MG TAB PO SCH ×2 (08:36→16:04)
[2017-09-01] MEDS: PANTOPRAZOLE SODIUM 40 MG SUSPDR.PKT PO SCH (08:36)
[2017-09-01] MEDS: CLOPIDOGREL BISULFATE 75 MG TAB PO SCH (08:36)
[2017-09-01] MEDS: FLUOXETINE HCL 10 MG CAP PO SCH (08:36)
--- NOTE | 2017-09-01 14:07 | Consultation ---
DATE OF CONSULTATION: September 01, 2017, at 12 p.m. NEUROLOGICAL CONSULTATION ATTENDING PHYSICIAN: Deon Arthur MD REASON FOR CONSULTATION: Coordination problems. This is a 77-year-old male with multiple medical problems. He was admitted on August 20, 2017, with chief complaint of coughing, shortness of breath, and respiratory failure. He was admitted to the ICU on the ventilator because of bilateral pneumonia. Now he is on the floor feeling better, extubated. The reason for the consultation is, according to the , he is unable to ambulate. She describes it as being weak. According to her, prior to coming to the hospital, he was ambulatory without any help. PAST HISTORY: He has multiple medical problems including coronary artery disease, status post CAB, status post right carotid endarterectomy, status post valve replacement, hypertension, chronic renal insufficiency, COPD. ALLERGIES: NOT ALLERGIC TO ANY MEDICATION. SOCIAL HISTORY: He quit smoking. He does not drink alcohol. FAMILY HISTORY: Noncontributory. REVIEW OF SYSTEMS: All 12 steps negative now. PHYSICAL EXAMINATION VITALS: Blood pressure 161/55, pulse 88, afebrile. GENERAL: The patient is awake. Examination is done in front of his . He is awake, comfortable, watching TV. I introduced myself and asked how he was feeling. He said he is feeling better. He denies any headache. He denies any dizziness. No visual disturbance. He is having some trouble swallowing. Having no trouble moving arms and legs. Physical therapy is trying to make him walk, but the patient has difficulty walking because of loss of balance. He has deficit in short-term memory, but he knows he is in the hospital. He is clear. He follows commands well. CRANIAL NERVES: Pupils are both equal and reactive. The extraocular movements are full. Visual quintana were normal. No facial weakness. Facial sensation is normal. Tongue protrudes in the midline. MOTOR POWER: The patient is able to elevate arms and legs against gravity, approximately to 70 to 80 degrees without any difficulty. MOTOR STRENGTH: Upper extremities: Abduction of the arms 5/5. Flexion and extension of the arms 5/5. Dorsiflexion of the wrist 5/5. Finger extensors 5/5. Hand patient financial advocate 5/5 bilaterally. Lower extremities: The patient is able to elevate his legs against gravity to 80 degrees without discomfort. Straight-leg raising negative to 80 degrees without problems. Flexion of the hips 5/5. Flexion and extension of the knees 5/5. Dorsiflexion of the ankles 5/5. Toe extensor 5/5. Plantarflexion 5/5. DEEP TENDON REFLEXES: Triceps, biceps and radials are 1+. Knee jerks 1+. Ankle jerk absent bilaterally. Plantar stimulation is down bilaterally. SENSORY: Touch and pinprick of the lower extremities is normal. Vibration sense is normal. COORDINATION: Hhyiqc-dp-eadn: Mild unsteadiness. HEAD: Normocephalic. NECK: Supple. Normal range of motion. Carotid pulsations are present bilaterally. There are no bruits. GAIT: Deferred. LABORATORY WORKUP: WBC today 16,600 with hemoglobin 10.5, hematocrit 34.4, platelets 270,000. Chemistry: Sodium 148, potassium 3.7, carbon dioxide 41--elevated. BUN 71 and creatinine 1.81 with estimated GFR 37. Liver enzymes are high. Urinalysis: Bacteria many high, WBCs 6-10, RBCs greater than 50, urine blood 4+, urine protein 2+. Microbiology: Sputum: A few gram-positive cocci in clusters. Urine culture negative. CT scan of the head: No acute intracranial hemorrhage or CT scan evidence of acute cerebral vascular infarction. Moderate confluent white matter changes, chronic microvascular ischemic changes. Age-indeterminate basal ganglia ischemic and thalamic likely chronic lacunar infarctions. Recommendation is MRI of the brain without contrast. Chest x-ray: No interval change. Lungs show stable bilateral interstitial and alveolar opacities predominantly in the right lung. No change from previous chest x-ray. IMPRESSION 1. Respiratory failure. 2. Bilateral pneumonia. 3. Hypertension. 4. Status post coronary artery bypass. 5. Status post right carotid endarterectomy. 6. Acute renal insufficiency. 7. Coordination problems, unsteadiness, unspecified. RECOMMENDATION: MRI of the brain without contrast. The and son were explained about my findings, and we will wait for the results of the test for further opinion. ROBERT LANDAVERDE MD Job#: [id number]
--- NOTE | 2017-09-01 15:58 | Diagnostic Imaging Report ---
EXAMINATION: MRI of the brain without contrast. HISTORY: Loss of coordination for the last 2 weeks, atypical pneumonia, fever, chills, hypertension, heart disease COMPARISON: Head CT on 08/22/2017 TECHNIQUE: Sagittal T2; axial DWI, T2, FLAIR, T1-IR, T2 gradient echo; coronal FLAIR. IMAGE QUALITY: Adequate. FINDINGS: Parenchyma: 1. Few scattered and mildly confluent periventricular white matter T2 hyperintense foci, most likely nonspecific chronic microvascular ischemic changes. 2. Small chronic lacunar infarct in the right inferior/posterior cerebellum. 3. Small chronic lacunar infarct seen in the bilateral putamen, right posterior thalamus and right head of the caudate nucleus. 4. Right posterior occipital calcification is better visualized on prior head CT. 5. No mass, hemorrhage, acute or chronic infarcts. Skull: Unremarkable. Vessels: Expected flow voids present in the major arteries and dural sinuses. Extra-axial spaces: No abnormal signal intensity or mass effect. Brain volume: Within normal limits for age. Ventricles: No hydrocephalus or displacement. Foramen magnum: Unremarkable. Sella: Unremarkable. Paranasal / mastoid sinuses: No significant inflammatory disease. IMPRESSION: 1. Suboptimal study due to motion, grossly no acute infarcts. 2. Unchanged mild chronic microvascular ischemic changes and small chronic lacunar infarcts as detailed above. Signed by: Dr. Cathryn Urban M.D. on 09/01/2017 3:55 PM
--- NOTE | 2017-09-01 17:06 | Progress Note ---
DATE: September 01, 2017 INTERNAL MEDICINE PROGRESS NOTE SUBJECTIVE: A 77-year-old male who has been extubated. He ____. He has some difficulty swallowing. We are going to get a modified barium swallow. PHYSICAL EXAM: VITAL SIGNS: HEART: Regular rhythm with no murmurs and no extra sounds. LUNGS: Showed decreased air sounds bilaterally. ABDOMEN: Soft. EXTREMITIES: Show no evidence of cyanosis, edema or trauma. VITAL SIGNS: Blood pressure 149/60, temperature 98.5, heart rate 86 per minute. Respiratory rate is 20 per minute and oxygen saturation 99%. On the BMP sodium 148, potassium 3.7, chloride 98, CO2 41, BUN 71, creatinine 1.1, glucose 148. CBC: White blood count 16.6, hemoglobin 10.5, hematocrit 34.4, platelet count 370,000, PT 13.3. INR 0.96. PTT 39.5. AST 58, ALT 69, total bilirubin 0.5, alkaline phosphatase 107. FINAL IMPRESSION 1. Pneumonia. 2. Chronic obstructive pulmonary disease exacerbation. 3. Acute renal failure stage 3. 4. Coronary artery disease status post coronary artery bypass grafting. 5. Aortic valve replacement. PLAN OF TREATMENT: Continue albuterol and Atrovent. Continue Pepcid 20 mg daily. Fluoxetine 10 mg daily. Metoprolol 25 mg twice a day. Flomax 0.4 mg daily. Lipitor 20 mg daily. Metoclopramide 10 mg before meals. Protonix 40 mg daily. Ceftriaxone 1 gram IV piggyback twice a day. Plavix 75 mg daily. Hydralazine 20 mg q.4 h. as needed. Amiodarone 200 mg q.8 hours. We are going to modify varium swallow to check on the swallowing. Patient is awaiting approval for insurance company to go to Hospital . Job#: [id number]
[2017-09-01] MEDS: ATORVASTATIN 20 MG TAB PO SCH (20:43)
[2017-09-01] MEDS: FAMOTIDINE 20 MG/2 ML VIAL IV SCH (20:43)
[2017-09-01] MEDS: TAMSULOSIN HCL 0.4 MG CAP PO SCH (20:43)
[2017-09-02 00:14] VITALS: BP 158/57
[2017-09-02] MEDS: IPRATROPIUM BROMIDE 0.02% 2.5 ML NEB NEB SCH ×3 (01:22→19:45)
[2017-09-02 04:30] VITALS: BP 157/61
[2017-09-02] MEDS: AMIODARONE HCL 200 MG TAB PO SCH ×3 (05:57→21:52)
[2017-09-02 06:47] LABS: BASOPHILS % 0.2 % (0.0-1.0); EOSINOPHILS # (AUTO) 0.3 (0.0-0.4); EOSINOPHILS % 2.4 % (0.0-6.0); HEMATOCRIT 32.8 % (38.2-49.6); LYMPHOCYTES # (AUTO) 1.1 (1.0-3.2); LYMPHOCYTES % 9.8 % (18.0-39.1); MEAN CORPUSCULAR HEMOGLOBIN 31.1 pg (28-32); MEAN CORPUSCULAR HGB CONC 30.5 g/dL (31-35); MEAN CORPUSCULAR VOLUME 101.9 fL (81-99); MONOCYTES # (AUTO) 0.7 (0.2-0.8); MONOCYTES % 6.4 % (4.4-11.3); NEUTROPHILS # (AUTO) 9.1 (2.1-6.9); NEUTROPHILS % 80.8 % (38.7-80.0); PLATELET COUNT 380 x10e3/uL (140-360); RED BLOOD COUNT 3.22 x10e6/uL (4.3-5.7); RED CELL DISTRIBUTION WIDTH 12.6 % (11.7-14.4)
[2017-09-02 07:05] LABS: ALBUMIN 2.3 g/dL (3.5-5.0); ALBUMIN/GLOBULIN RATIO 0.6 (0.8-2.0); ANION GAP 10.8 mmol/L (8-16); CALCIUM 8.7 mg/dL (8.4-10.2); CREATININE, SERUM 1.55 mg/dL (0.72-1.25); POTASSIUM 3.8 mmol/L (3.5-5.1)
[2017-09-02 08:00] VITALS: BP 169/63
[2017-09-02] MEDS: PANTOPRAZOLE SODIUM 40 MG SUSPDR.PKT PO SCH (08:20)
[2017-09-02] MEDS: FLUOXETINE HCL 10 MG CAP PO SCH (08:20)
[2017-09-02] MEDS: CEFTRIAXONE SOD 1 GM VIAL IV SCH ×2 (08:20→21:51)
[2017-09-02] MEDS: CLOPIDOGREL BISULFATE 75 MG TAB PO SCH (08:20)
[2017-09-02] MEDS: METOPROLOL TARTRATE 25 MG TAB PO SCH ×2 (08:24→16:17)
[2017-09-02 09:15] VITALS: BP 163/63
[2017-09-02] MEDS ORDERED: LACTULOSE SYRUP 20 GM/30 ML UDC PO PRN (12:30)
--- NOTE | 2017-09-02 13:16 | Progress Note ---
DATE: September 02, 2017 INTERNAL MEDICINE PROGRESS NOTE SUBJECTIVE: The patient is doing well. Complaining of constipation. PHYSICAL EXAMINATION VITAL SIGNS: Blood pressure 163/63, temperature 98.6 degrees, heart rate 96 per minute, respiratory rate 16 per minute. Oxygen saturation 100%. HEART: Regular rhythm. Normal S1 and S2 sounds. LUNGS: Decreased breath sounds bilaterally. ABDOMEN: Soft. LABS: On the blood work, we have BMP with a sodium 148, potassium 3.8, chloride 99, CO2 42, BUN 48, creatinine 1.55, glucose 114. CBC: White blood count 11.2, hemoglobin 10.0, hematocrit 32.8, platelet count 380,000. PT 13.3, PTT 39.5, INR 0.96. AST 25, ALT 45, total bilirubin 0.7, alkaline phos 103. FINAL IMPRESSION 1. Chronic obstructive pulmonary disease exacerbation. 2. Rmjjr-ss-yxqpkjo renal failure. 3. Uncontrolled hypertension. 4. Hypercholesterolemia. 5. Benign prostatic hypertrophy. 6. Gastroesophageal reflux disease. 7. Bilateral pneumonia. 8. History of coronary artery disease. 9. History of arrhythmia. PLAN OF TREATMENT: We are going to continue with Atrovent q.6 h., albuterol q.2 h., Pepcid 20 mg daily, Tylenol 650 mg q.6 h. as needed for pain or fever, fluoxetine 10 mg daily, metoprolol 25 mg twice a day, Flomax 0.4 mg daily, Lipitor 20 mg daily, metoclopramide 10 mg q.6 h., Protonix 40 mg daily, ceftriaxone 1 g IV piggyback twice a day, Plavix 75 mg daily, hydralazine 20 mg q.4 h. as needed, amiodarone 200 mg q.8 h. Going to put the patient also on MiraLAX 17 g daily and lactulose 20 g q.4 h. as needed for constipation. Continue physical and occupational therapy. We are waiting for insurance to see if they can approve a [id number]. Job#: [id number]
[2017-09-02] MEDS ORDERED: DEXTROSE 5% 1,000 ML IV ONE (14:00)
[2017-09-02 16:00] VITALS: BP 146/70
--- NOTE | 2017-09-02 16:51 | Diagnostic Imaging Report ---
EXAM: Modified barium swallow INDICATION: Suspected aspiration. COMPARISON: None FINDINGS: This examination was conducted in conjunction with speech pathologist. Patient was given, by mouth, liquids and solids of various consistencies. Examination showed premature spillage to the vallecula with all consistencies. Premature spillage to the piriform sinus was noted with thin liquids only. Penetration into the laryngeal vestibule was noted with thin liquids to the level of the vocal cords. Silent minimal aspiration of thin liquids was seen during the swallow. Minimal to moderate vallecular, piriform sinus and base of tongue residue following swallows of all consistencies. IMPRESSION: 1. Mild to moderate pharyngeal dysphagia consistent with premature spillage of the base of the tongue, aspiration of thin liquids and consistent pharyngeal residue after the swallow. Please see speech pathology report for detailed description and recommendations.> Signed by: Dr. Vitor Mon M.D. on 09/02/2017 4:48 PM
[2017-09-02] MEDS: ALBUTEROL SULF 0.083% NEB SOLN 3 ML NEB NEB PRN (19:45)
[2017-09-02 20:00] VITALS: BP 153/98
[2017-09-02] MEDS: TAMSULOSIN HCL 0.4 MG CAP PO SCH (21:52)
[2017-09-02] MEDS: ATORVASTATIN 20 MG TAB PO SCH (21:52)
[2017-09-03] VITALS (7 sets, daily range): BP systolic 140–152; BP diastolic 63–70
[2017-09-03] MEDS: ALBUTEROL SULF 0.083% NEB SOLN 3 ML NEB NEB PRN ×2 (00:30→07:15)
[2017-09-03] MEDS: IPRATROPIUM BROMIDE 0.02% 2.5 ML NEB NEB SCH ×3 (00:30→13:00)
[2017-09-03] MEDS: AMIODARONE HCL 200 MG TAB PO SCH (05:42)
[2017-09-03 07:51] LABS: ANION GAP 9.8 mmol/L (8-16); CALCIUM 8.6 mg/dL (8.4-10.2); CREATININE, SERUM 1.43 mg/dL (0.72-1.25); POTASSIUM 3.8 mmol/L (3.5-5.1)
[2017-09-03] MEDS ORDERED: POLYETHYLENE GLYCOL 3350 17 GM PACK PO SCH (09:00)
[2017-09-03] MEDS ORDERED: AMLODIPINE BESYLATE 5 MG TAB PO SCH (09:00)
[2017-09-03] MEDS: CEFTRIAXONE SOD 1 GM VIAL IV SCH (10:17)
[2017-09-03] MEDS: METOPROLOL TARTRATE 25 MG TAB PO SCH ×2 (10:18→16:59)
[2017-09-03] MEDS: FLUOXETINE HCL 10 MG CAP PO SCH (10:18)
[2017-09-03] MEDS: PANTOPRAZOLE SODIUM 40 MG SUSPDR.PKT PO SCH (10:18)
[2017-09-03] MEDS: CLOPIDOGREL BISULFATE 75 MG TAB PO SCH (10:18)
[2017-09-03] MEDS ORDERED: FUROSEMIDE 40 MG TAB PO SCH (11:00)
--- NOTE | 2017-09-03 15:25 | Progress Note ---
DATE: INTERNAL MEDICINE PROGRESS NOTE SUBJECTIVE: The patient still has no complaints except for poor appetite. PHYSICAL EXAM: HEART: Shows regular rhythm. Normal S1 and S2 sounds. LUNGS: Clear bilaterally. ABDOMEN: Soft. BLOOD WORK: We have BMP with a sodium 145, potassium 3.8, chloride 98, CO2 41, BUN 37, creatinine 1.43, glucose 125. On the CBC: White blood count 11.2, hemoglobin 10.0, hematocrit 32.8, platelet count 380,000. PT 13.3. INR 0.96. PTT 39.5. AST 25, ALT 45. Total bilirubin 0.7, alkaline phosphatase 103. FINAL IMPRESSION: 1. Chronic obstructive pulmonary disease exacerbation. 2. Pneumonia. 3. Dysphagia. 4. Poor appetite. 5. History of coronary artery disease. 6. Non ST segment elevation myocardial fraction. 7. Acute on chronic renal insufficiency. PLAN OF TREATMENT: Continue albuterol and Atrovent. Continue with Flomax 0.4 mg daily. Lipitor 20 mg daily. Norvasc 5 mg daily. Metoclopramide 10 mg q.6 hours. Protonix 40 mg daily. Ceftriaxone 1 gram IV piggyback twice a day. Amiodarone 200 mg daily. Plavix 75 mg daily. Hydralazine 20 mg IV q.4 hours as needed for hypertension. Furosemide 40 mg daily. Fluoxetine 10 mg daily. Metoprolol 25 mg twice a day. Lactulose 20 grams twice a day. I am going to start him on Remeron 7.5 mg daily for appetite, which is going to be given at nighttime. Continue physical and occupational therapy. Continue with speech therapy restrictions. Job#: [id number] EV
[2017-09-03] MEDS ORDERED: MIRTAZAPINE 15 MG TAB PO SCH (21:00)
[2017-09-04] MEDS ORDERED: AMIODARONE HCL 200 MG TAB PO SCH (09:00)
--- NOTE | 2017-09-04 14:04 | Discharge Summary ---
HISTORY/HOSPITAL COURSE: Patient is a 77-year-old male who has a past medical history positive for COPD, hypertension, coronary artery disease, came to the hospital with shortness of breath. He was found to have COPD exacerbation with pneumonia, intubated due to respiratory failure, started on broad-spectrum IV antibiotic, then subsequently extubated. Patient is transferred to [facility] because this is the only facility under the insurance plan. Dr. Lafleur from [facility] will be admitting the patient. PHYSICAL EXAMINATION HEART: Regular rhythm, normal S1, S2 sounds. LUNGS: Clear bilaterally. ABDOMEN: Soft. EXTREMITIES: Show no evidence of cyanosis, edema or trauma. FINAL IMPRESSION 1. Acute respiratory failure secondary to chronic obstructive pulmonary edema exacerbation secondary to pneumonia. 2. Bilateral pneumonia. 3. Chronic obstructive pulmonary disease exacerbation. 4. Coronary artery disease, status post coronary artery bypass grafting. 5. Aortic stenosis. 6. Obesity. 7. Kbbfi-em-ublizqm renal failure. PLAN OF TREATMENT: Continue current medication regimen. Continue current antibiotic regimen. Continue oxygen, albuterol and Atrovent as needed. Continue p.o. prednisone. Continue physical, occupational, and speech therapy. Patient is transferred to [facility] in [place] for continuation of the current medication regimen and antibiotic until optimization of the pulmonary status. IFEOMA USN MD Job#: [id number] VAS
== END 2017-09-03 21:37 | DRG 207 ==
LOC: ER 15:21 → ERHOLD 20:00 → MED/SURG3 21:08 → ICU 08-22 11:21 → IMCU 08-30 12:59 → MED/SURG2 09-02 11:28
PROVIDERS: ADMIT Internal Medicine; ATTEND Internal Medicine
PROC: 02HV33Z Insertion of Infusion Device into Superior Vena Cava, Percutaneous Approach (ICD-10-PCS; principal; 2017-08-22)
PROC: 0BH17EZ Insertion of Endotracheal Airway into Trachea, Via Natural or Artificial Opening (ICD-10-PCS; 2017-08-22)
PROC: 5A1955Z Respiratory Ventilation, Greater than 96 Consecutive Hours (ICD-10-PCS; 2017-08-22)
DX: J18.9 Pneumonia, unspecified organism (principal); R65.20 Severe sepsis without septic shock; N17.0 Acute kidney failure with tubular necrosis; J96.21 Acute and chronic respiratory failure with hypoxia; A41.9 Sepsis, unspecified organism; N18.3 Chronic kidney disease, stage 3 (moderate); N17.9 Acute kidney failure, unspecified; I13.0 Hypertensive heart and chronic kidney disease with heart failure and stage 1 through stage 4 chronic kidney disease, or unspecified chronic kidney disease; I50.22 Chronic systolic (congestive) heart failure; I25.10 Atherosclerotic heart disease of native coronary artery without angina pectoris; I05.0 Rheumatic mitral stenosis; I73.9 Peripheral vascular disease, unspecified; E87.5 Hyperkalemia; F17.210 Nicotine dependence, cigarettes, uncomplicated; E66.9 Obesity, unspecified; Z68.33 Body mass index [BMI] 33.0-33.9, adult; N40.0 Benign prostatic hyperplasia without lower urinary tract symptoms; J69.0 Pneumonitis due to inhalation of food and vomit; K21.9 Gastro-esophageal reflux disease without esophagitis; I65.29 Occlusion and stenosis of unspecified carotid artery; Z95.2 Presence of prosthetic heart valve; Z95.1 Presence of aortocoronary bypass graft; Z99.81 Dependence on supplemental oxygen; R26.81 Unsteadiness on feet; E87.6 Hypokalemia; R41.3 Other amnesia; I27.20 Pulmonary hypertension, unspecified
CPT/HCPCS: 36415; 36569; 36600; 70450; 70551; 71010; 71020; 71250; 74230; 76536; 76770; 80048; 80053; 80202; 81001; 82270; 82550; 82553; 82805; 82948; 83036; 83605; 83735; 83880; 84132; 84484; 85025; 85610; 85730; 86635; 87040; 87070; 87086; 87116; 87205; 87206; 87385; 87390; 87400; 87449; 87493; 93005; 93306; 94002; 94003; 94640; 96367; 99284; G0433; G0435; J0360; J0456; J0610; J0696; J1940; J2060; J2250; J2920; J2930; J3370; J3480; J7030; J7070; J7799

== ENCOUNTER 2019-05-29 08:00 | Inpatient (IN) | payer OTHER, MEDICARE ==
[~2019-05-29] VITALS: Ht 165.1 cm; Wt 89.4 kg
[~2019-05-29 08:00] MED LIST changes: +FLUOXETINE HCL10 MG PO; +LISINOPRIL10 MG PO; +TAMSULOSIN HCL0.4 MG PO
--- OUTSIDE RECORDS SUMMARY | 2019-05-29 08:03 | XMS REPORT ---
[facility] Address Unknown Phone Unavailable Care Team Providers Care Soap Maker Name Role Phone IFEOMA SUN Unavailable Unavailable Payers Payer Name Policy Type Policy Number Effective Date Expiration Date Problems This patient has no known problems. Allergies, Adverse Reactions, Alerts Allergy Name Allergy Type Status Severity Reaction(s) Onset Date Inactive Date Treating Clinician Comments latex DA Active MO 2018-09-05 00:00:00 Medications This patient has no known medications. Results Test Description Test Time Test Comments Text Results Atomic Results Result Comments BASIC METABOLIC PANEL 2018-09-05 16:10:00 SODIUM (test code=NA) 142 mmol/L 135-148 POTASSIUM (test code=K) 4.7 mmol/L 3.5-5.1 CHLORIDE (test code=CL) 102 mmol/L 101-109 CARBON DIOXIDE (test code=CO2) 31.8 mmol/L 21-32 ANION GAP (test code=GAP) 13 mmol/L 10-20 GLUCOSE (test code=GLU) 97 mg/dL 74-106 BLOOD UREA NITROGEN (test code=BUN) 19 mg/dL 3-21 GLOMERULAR FILTRATION RATE (test code=GFR) 45 mL/min >=60 Estimated GFR by using Modified MDRD formula.Chronic kidney disease is defined as either kidney damageor GFR <60 mL/min/1.73 m2 for >3 months. CREATININE (test code=CREAT) 1.52 mg/dL 0.55-1.3 BUN/CREATININE RATIO (test code=BUN/CREA) 12.5 10-20 CALCIUM (test code=CA) 8.5 mg/dL 8.4-10.2 CBC W/AUTO [id number] 16:02:00* Test Item Value Reference Range Comments WHITE BLOOD CELL (test code=WBC) 9.1 K/mm3 4.5-12.5 RED BLOOD CELL (test code=RBC) 4.23 mill/mm3 4.0-5.8 HEMOGLOBIN (test code=HGB) 12.3 gram/dL 13.0-17.5 HEMATOCRIT (test code=HCT) 40.0 % 42.0-52.0 MEAN CELL VOLUME (test code=MCV) 94.6 fL 80-98 MEAN CELL HGB (test code=MCH) 29.1 picogram 27.0-33.0 MEAN CELL HGB CONCETRATION (test code=MCHC) 30.8 gram/dL 33.0-36.0 RED CELL DISTRIBUTION WIDTH (test code=RDW) 16.8 % 11.6-16.2 RED CELL DISTRIBUTION WIDTH SD (test code=RDW-SD) 55.4 fL 39.2-49.5 PLATELET COUNT (test code=PLT) 206 K/mm3 150-450 MEAN PLATELET VOLUME (test code=MPV) 10.6 fL 6.7-11.0 NEUTROPHIL % (test code=NT%) 73.1 % 39.0-69.0 LYMPHOCYTE % (test code=LY%) 15.5 % 25.0-55.0 MONOCYTE % (test code=MO%) 9.1 % 0.0-10.0 EOSINOPHIL % (test code=EO%) 1.9 % 0.0-5.0 BASOPHIL % (test code=BA%) 0.4 % 0.0-1.0 NEUTROPHIL # (test code=NT#) 6.63 K/mm3 1.8-7.7 LYMPHOCYTE # (test code=LY#) 1.41 K/mm3 1.0-5.0 MONOCYTE # (test code=MO#) 0.83 K/mm3 0-0.8 EOSINOPHIL # (test code=EO#) 0.17 K/mm3 0.0-0.5 BASOPHIL # (test code=BA#) 0.04 K/mm3 0.0-0.2 - XR L-SPINE /3 [id number] 15:44:00 Name: DAVIDFRANCHESKA [facility] : 1940 Age/S:78 /M [address] [facility] Unit#:[id number] Loc: [place] [address] Phys: Katalina Mitchell MD Dis Date: PHONE #: [phone] Status: MARK FABIAN FAX #: [phone] Exam Date: 09/05/2018 Reason: BACK PAIN EXAMS: CPT CODE: [id number] XR L-SPINE 2/3 VIEWS 39333 HISTORY: BACK PAIN TECHNIQUE: AP, lateral, and lumbosacral views of the lumbar spine. FINDINGS: Mild chronic L2 superior endplate compression deformity. Other lumbar vertebral body heights are preserved. Vertebral body alignment is satisfactory. Osteopenia. Mild L1-L2 and moderate L5-S1 disc space loss. Lower lumbar facet arthrosis. No evident paraspinal soft tissue contour abnormality. Aortoiliac atherosclerotic vascular calcification. I MPRESSION: Mild chronic L2 superior endplate compression defo rmity. 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 at 1544 Reported and signed by: Melody Moore D.O. CC: Katalina Mitchell MD Technologist: Ema Steinberg RT(R)(CT) Trnscrpt Data: 09/05/2018 (1541) raven [id number] Orig Print D/T: S: 09/05/2018 (1540) PAGE 1 Signed Report URINALYSIS [id number] 15:27:00* Test Item Value Reference Range Comments UA COLOR (test code=COLU) STRAW YELLOW UA APPEARANCE (test code=APPU) CLEAR CLEAR UA GLUCOSE DIPSTICK (test code=DGLUU) NORMAL mg/dL NEGATIVE UA BILIRUBIN DIPSTICK (test code=BILU) NEGATIVE mg/dL NEGATIVE UA KETONE DIPSTICK (test code=KETU) neg mg/dL NEGATIVE UA SPECIFIC GRAVITY (test code=SGU) 1.005 1.001-1.035 UA BLOOD DIPSTICK (test code=RADHA) neg Cedrick/uL NEGATIVE UA PH DIPSTICK (test code=ARIADNE) 6.5 5.0-8.0 UA PROTEIN DIPSTICK (test code=PROU) neg mg/dL Neg-15 UA UROBILINIOGEN DIPSTICK (test code=URO) norm mg/dL 0.0-0.2 UA NITRITE DIPSTICK (test code=COMFORT) NEGATIVE NEGATIVE UA LEUKOCYTE ESTERASE DIPSTICK (test code=LEUU) NEGATIVE uL NEGATIVE Urine Source? Clean CatchURINALYSIS [id number] 15:26:00* Test Item Value Reference Range Comments UA COLOR (test code=COLU) STRAW YELLOW UA APPEARANCE (test code=APPU) CLEAR CLEAR UA GLUCOSE DIPSTICK (test code=DGLUU) NORMAL mg/dL NEGATIVE UA BILIRUBIN DIPSTICK (test code=BILU) NEGATIVE mg/dL NEGATIVE UA KETONE DIPSTICK (test code=KETU) neg mg/dL NEGATIVE UA SPECIFIC GRAVITY (test code=SGU) 1.005 1.001-1.035 UA BLOOD DIPSTICK (test code=RADHA) neg Cedrick/uL NEGATIVE UA PH DIPSTICK (test code=ARIADNE) 6.5 5.0-8.0 UA PROTEIN DIPSTICK (test code=PROU) neg mg/dL Neg-15 UA UROBILINIOGEN DIPSTICK (test code=URO) norm mg/dL 0.0-0.2 UA NITRITE DIPSTICK (test code=COMFORT) NEGATIVE NEGATIVE UA LEUKOCYTE ESTERASE DIPSTICK (test code=LEUU) NEGATIVE uL NEGATIVE UA WBC (test code=WBCU) per HPF 0-5 Urine Source? Clean CatchMODIFIED BA. SWALLOW [place] [address] Patient Name: FRANCHESKA HERNANDEZ MR #: [id number] : 1940 Age/Sex: 77/M Req #: [id number] Adm Physician: IFEOMA SUN MD Ordered by: IFEOMA SUN MD Report #: [id number] [facility] 1 Procedure: [id number] DX /MODIFIED BA. SWALLOW Exam Date: 09/02/17 Exam Time: 1030 REPORT STATUS: Signed EXAM: Modified barium swallow INDICATION: Suspected aspiration. COMPARISON: None FINDINGS: This examination w as conducted in conjunction with speech pathologist. Patient was given, by [facility], liquids and solids of various consistencies. Examination showed premat ure spillage to the vallecula with all consistencies. Premature spillage to th e piriform sinus was noted with thin liquids only. Penetration into the laryng eal vestibule was noted with thin liquids to the level of the vocal cords. S ilent minimal aspiration of thin liquids was seen during the swallow. Minimal to moderate vallecular, piriform sinus and base of tongue residue following sw allows of all consistencies. IMPRESSION: 1. Mild to moderate pharyn geal dysphagia consistent with premature spillage of the base of the tongue, a spiration of thin liquids and consistent pharyngeal residue after the swallow. Please see speech pathology report for detailed description and recommendatio ns.> Signed by: Dr. Vitor Mackey M.D. on 09/02/2017 4:48 PM Dictated By: VITOR MACKEY MD 47 Transcribed By: BREEZY on 09/02/171647 COPY TO: IFEOMA SUN MD MRI BRAIN WO [place] [address] Patient Name: FRANCHESKA HERNANDEZ MR #: [id number] : 1940 Age/Sex: 77/M Req #: [id number] Adm Physician: IFEOMA SUN MD Ordered by: ROBERT LANDAVERDE MD Report #: [id number] [facility]: [facility] Room/Bed: [place] [address] Procedure: [id number] MR I/MRI BRAIN WO Exam Date: Exam Time: REPORT STATUS: Signed EXAMINATION: MRI of the brain without contrast. HISTOR Y: Loss of coordination for the last 2 weeks, atypical pneumonia, fever, chill s, hypertension, heart disease COMPARISON: Head CT on 08/22/2017 TECHNIQUE: Sa gittal T2; axial DWI, T2, FLAIR, T1-IR, T2 gradient echo; coronal FLAIR. IM AGE QUALITY: Adequate. FINDINGS: Parenchyma: 1. Few scattere d and mildly confluent periventricular white matter T2 hyperintense foci, most likely nonspecific chronic microvascular ischemic changes. 2. Small chron ic lacunar infarct in the right inferior/posterior cerebellum. 3. Small chron ic lacunar infarct seen in the bilateral putamen, right posterior thalamus and right head of the caudate nucleus. 4. Right posterior occipital calcification is better visualized on prior head CT. 5. No mass, hemorrhage, acute or c hronic infarcts. Skull: Unremarkable. Vessels: Expected flow voids present in the major arteries and dural sinuses. Extra-axial spaces: No abnormal signal intensity or mass effect. Brain volume: Within normal limits for age. Ventricles: No hydrocephalus or displacement. Foramen magnum: Unremarkable. Sella: Unremarkable. Paranasal / mastoid sinuses: No significant inflammatory disease. IMPRESSION: 1. Suboptimal study due to motion, grossly no acute infarcts. 2. Unchanged mild chronic microvascular ischemic changes and small chronic lacunar infarcts as detailed above. Signed by: Dr. Rafael Urban M.D. on 09/01/2017 3:55 PM Dictated By: RAFAEL URBAN MD 2122 Transcribed By: BREEZY on 09/01/17 7486 COPY TO: ROBERT HOLDER MD CT BRAIN WO [place] [id number] Patient Name: FRANCHESKA HERNANDEZ MR #: [id number] : 1940 Age/Sex: 77/M Req #: [id number] Adm Physician: IFEOMA SUN MD Ordered by: TONE CLEMENTE MD Report #: [id number] Location: [facility] Room[facility]Bed: [facility] 199-1 Procedure: [id number] CT/CT BRAIN WO Exam Date: 08/31/17 Exam Time: 1700 REPORT STATUS: Signed EXAMINATION: Head CT without contrast HISTORY: Weakness, lack of coordination, dysmetria, pneumonia COMPARISON: None. EFREN HNIQUE: Multidetector axial images were obtained without contrast from the for amen magnum to the vertex . The images were reconstructed using brain and bone algorithms. Thin section brain images were reformatted into coronal and sagi ttal planes. Image quality: Motion/streaking artifact limits the evaluation of the skull base and posterior cranial fossa. FINDINGS: Parenchy ma: 1. Scattered and moderate confluent periventricular, hunter radiata and centrum semiovale white matter hypodensities, most likely nonspecific chronic microvascular ischemic changes. 2. Small hypodensities in the bilateral cherri tiform nuclei, anterior limb of the right internal capsule and bilateral thala mi represent age indeterminate, likely chronic lacunar infarct. 3. No mass or hemorrhage. No CT evidence of acute territorial vascular insult. Extra-axial spaces:No abnormal density. No extra-axial fluid collections Brain volume: Normal for age. Ventricles: No hydrocephalus or disp lacement. Arteries: No density suggestive of thrombus. Dural si nuses: No abnormal density. Extra-axial spaces: No abnormal density. Foramen magnum: No mass, Chiari malformation, or basilar invagination. Sella: No obvious mass. Paranasal/mastoid sinuses: Imaged portions unremarkable. Skull/Scalp: No lytic or blastic lesions. No fractures. IMPRESSION: 1. No acute intracranial hemorrhage or CT evidence of acu te territorial cortical vascular insults. 2. Moderate confluent white ma tter chronic microvascular ischemic changes. Superimposed acute vascular insul t cannot be excluded, if clinical concern remains consider brain MRI for furth er evaluation. 3. Age indeterminate basal ganglia and thalami, likely chr onic lacunar infarct. Signed by: Dr. Rafael Urban M.D. on 08/31/2017 5:38 PM Dictated By: RAFAEL URBAN MD 37 Transcribed By: BREEZY on 08/31/171737 COPY TO: TONE BURGER MD CHEST SINGLE (PORTABLE) [place] [address] Patient Name: FRANCHESKA HERNANDEZ MR #: [id number] : 1940 Age/Sex: 77/M Req #: [id number] Adm Physician: IFEOMA SUN MD Ordered by: DENITA ROWLEY MD Report #: [id number] Location: ICU Room/Bed: [place] [address] Procedure: [id number] DX/ZAC ST SINGLE (PORTABLE) Exam Date: 08/30/17 Exam Time: 0455 REPORT STATUS: Signed EXAM: CHEST SINGLE (PORTABLE), AP 1 view D ATE: 08/30/2017 4:28 AM Time stamp on exam: 0428 hours INDICATION: Respiratory distress COMPARISON: August 29, 2017 FINDINGS: LINES/TUBES: Stable ri ght approach PICC. Interval removal of endotracheal tube and nasal/orogastric tube. LUNGS: Stable bilateral interstitial and alveolar opacities, predomin antly in the right lung. PLEURA: No effusions or pneumothorax. HEAR T AND MEDIASTINUM: Stable appearance. BONES AND SOFT TISSUES: No acute find ings. IMPRESSION: No interval change. Signed by: Dr. Vera Plata M.D. on 08/30/2017 5:32 AM Dictated By: VERA ROPER MD Elect ronically Signed By: VERA ROPER MD on 08/30/17 0532 Transcribed By: BREEZY on 08/30/17 0532 COPY TO: DENITA ROWLEY MD CHEST SINGLE (PORTABLE) [address] [address] Patient Name: FRANCHESKA HERNANDEZ MR #: [id number] : 1940 Age/Sex: 77/M Req #: [id number] Adm Physician: IFEOMA SUN MD Ordered by: DENITA ROWLEY MD Report #: [id number] Location: ICU Room/Bed: ICU [facility] Procedure: [id number] DX/ZAC ST SINGLE (PORTABLE) Exam Date: 08/29/17 Exam Time: 0535 REPORT STATUS: Signed EXAM: CHEST SINGLE (PORTABLE), AP 1 view D ATE: 08/29/2017 6:30 AM Time stamp on exam: 0605 hours INDICATION: Respiratory failure COMPARISON: AP view of the chest June 28, 2018 FINDINGS: L AMANDA/TUBES: Stable endotracheal tube, right approach PICC and partially visual ized nasal/orogastric tube. LUNGS: Stable bilateral airspace opacities, gre atest in the right lung. PLEURA: No effusions or pneumothorax. HEART AND MEDIASTINUM: Stable. BONES AND SOFT TISSUES: No acute findings. I MPRESSION: No interval change. Signed by: Dr. Vera Roper MKade Zamorano on 08/29/2017 6:34 AM Dictated By: VERA ROPER MD Electronically Sig fransisco By: VERA ROPER MD on 08/29/17 0634 Transcribed By: BREEZY on 08/29/17 0 634 COPY TO: DENITA ROWLEY MD CHEST SINGLE (PORTABLE) [facility] [address] [place] [address] Patient Name: FRANCHESKA HERNANDEZ MR #: [id number] : 1940 Age/Sex: 77/M Req #: [id number] Adm Physician: IFEOMA SUN MD Ordered by: DENITA ROWLEY MD Report #: [id number] Location: ICU Room/Bed: [place] [address] Procedure: [id number] DX/ZAC ST SINGLE (PORTABLE) Exam Date: Exam Time: R EPORT STATUS: Signed EXAM: CHEST SINGLE (PORTABLE), AP 1 view DATE: 08/28/19 6:30 AM Time stamp on exam: 0552 hours INDICATION: Intubated COMPARISON: AP view of the chest August 27, 2017 FINDINGS: LINES/TUBES: Stable endo tracheal tube, right approach PICC and nasal/orogastric tube LUNGS: Stabl e bilateral airspace opacities, greatest in the right lung. PLEURA: Small b ilateral pleural effusions HEART AND MEDIASTINUM: Stable BONES AND SOF T TISSUES: No acute findings. IMPRESSION: No interval change Signed by: Dr. Vera Roper M.D. on 08/28/2017 6:44 AM Dictated By: VERA ROPER MD 3 T ranscribed By: BREEZY on 08/28/17643 COPY TO: DENITA ROWLEY MD CHEST SINGLE (PORTABLE) [place] [id number] Patient Name: FRANCHESKA HERNANDEZ MR #: [id number] : 1940 Age/Sex: 77/M Req #: [id number] Adm Physician: IFEOMA SUN MD Ordered by: DENITA ROWLEY MD Report #: [id number] Location: ICU Room/Bed: ICU [facility] Procedure: [id number] DX/ZAC ST SINGLE (PORTABLE) Exam Date: 08/27/17 Exam Time: 0630 REPORT STATUS: Signed EXAM: CHEST SINGLE (PORTABLE), AP 1 view D ATE: 08/27/2017 5:00 AM Time stamp on exam: 0552 hrs INDICATION: Intubated C OMPARISON: AP view of the chest August 26, 2017 FINDINGS: LINES/TUBES: En dotracheal tube terminates 5 cm above the federica. Nasal/orogastric tube course s below the diaphragm out of field of view. Single position right approach PIC C. LUNGS: Persistent airspace opacities bilaterally, predominantly in the r ight lung. PLEURA: Trace right pleural effusion. HEART AND MEDIASTIN UM: Normal size and contour. BONES AND SOFT TISSUES: No acute findings. IMPRESSION: Stable appearance of multifocal pneumonia. Signed by: Dr. Vera Roper M.D. on 08/27/2017 9:34 PM Dictated By: VERA PHAM MD 33 Transcribe d By: BREEZY on 08/27/172133 COPY TO: DENITA ROWLEY MD CHEST SINGLE (PORTABLE) [place] [address] Patient Name: FRANCHESKA HERNANDEZ MR #: [id number] : 1940 Age/Sex: 77/M Req #: [id number] Adm Physician: IFEOMA SUN MD Ordered by: DENITA ROWLEY MD Report #: [id number] Location: ICU Room/Bed: ICU 192-1 Procedure: [id number] DX/[facility] ST SINGLE (PORTABLE) Exam Date: 08/26/17 Exam Time: 0515 REPORT STATUS: Signed Examination: Single AP view of the chest. COMPARISON: 08/25/2017 INDICATION: Atypical pneumonia DISCUSSION: See impression IMPRESSION: 1. Endotracheal tube, enteric tube, and right upper extremity PICC are unchanged in position. 2. Aeration of the right lung continues to improve relative to 08/25/2017. No new airspace consolidations. 3. Stable cardiomediastinal contour with pulmonary venous congestion. Signed by: Dr. Mary Anne Alicea M.D. on 08/26/2017 7:18 AM Dictated By: MARY ANNE ALICEA MD 7 COPY TO: JEY ROWLEY MD RENAL RETROPERITONEAL COMP [place] [address] Patient Name: FRANCHESKA HERNANDEZ MR #: [id number] : 1940 Age/Sex: 77/M Req #: [id number] Adm Physician: IFEOMA SUN MD Ordered by: ADIA LOMAX MD, MD Report #: [id number] Location: ICU Room/Bed: ICU 192-1 Procedure: [id number] US/ US RENAL RETROPERITONEAL COMP Exam Date: 08/26/17 Ex am Time: 1216 REPORT STATUS: Signed PROCEDURE: US RETROPERITONEAL ( Les ABBASI ). COMPARISON: Renal ultrasound 08/22/2017. INDICATIONS: DAGO TECHN IQUE: Ward-scale and color sonographic images of the bilateral kidneys and bl adder where obtained in transverse and longitudinal planes. FINDINGS: RIGHT KIDNEY: 12.8 x 5.1 x 4.6 cm, cortex 1.6 cm Cysts: None Solid m asses: None Stones: None Hydronephrosis: None Echogenicity: Normal L EFT KIDNEY: 9.2 x 5.0 x 4.5 cm, cortex 2.1 cm Cysts: None Solid masses: None Stones: 1.6 x 0.8 x 1.9 cm echogenic foci in lower pole. Hydronephrosis: No ne. Echogenicity: Normal. Bladder: Decompressive Tom catheter in place . CONCLUSION: 1. Unchanged 1.6 cm nonobstructing stone lower pole of the left kidney. 2. No hydronephrosis. Dictated by: Artemio Sommer M.D. on at 13:17 Electronically approved by: Artemio Sommer M.D. on 08/26/2017 at 13:17 Dictated By: ARTEMIO SOMMER MD 1317 Transcribed By: DANITZA on 08/26/17 1317 COPY TO: ADIA LOMAX [facility] (PORTABLE) [place] [address] Patient Name: FRANCHESKA HERNANDEZ MR #: [id number] : 1940 Age/Sex: 77/M Req #: [id number] Adm Physician: IFEOMA SUN MD Ordered by: DENITA ROWLEY MD Report #: [id number] Location: ICU Room/Bed: ICU [facility] Procedure: [id number] DX/ZAC ST SINGLE (PORTABLE) Exam Date: 08/25/17 Exam Time: 0524 REPORT STATUS: Signed EXAMINATION: CHEST SINGLE (PORTABLE) INDICATION: Respiratory failure COMPARISON: 08/24/2017 FINDINGS: TUBES and LINES: Endotracheal and nasogastric tubes are in good position. Right upper extremity PICC line is stable. LUNGS: Lungs are no t well inflated. Lungs are clear. There is mild prominence of the central p ulmonary vasculature, consistent with pulmonary venous congestion. Improving a irspace disease involving the right hemithorax. PLEURA: No pleural effusio n or pneumothorax. HEART AND MEDIASTINUM: The cardiomediastinal silhouette is unremarkable. BONES AND SOFT TISSUES: No acute osseous lesion. So ft tissues are unremarkable. UPPER ABDOMEN: No free air under the diaphra gm. IMPRESSION: No acute thoracic abnormality. Improving airspace disease involving the right hemithorax. Signed by: Dr. Tahir Obando M.D. on 08/25/2017 6:06 AM Dictated By: TAHIR KELLY MD Electronically Si gned By: TAHIR KELLY MD on 08/25/17605 Transcribed By: BREEZY on 605 COPY TO: DENITA ROWLEY MD SOFT TISSUE NECK/HEAD [place] [address] Patient Name: FRANCHESKA HERNANDEZ MR #: [id number] : 1940 Age/Sex: 77/M Req #: [id number] Adm Physician: IFEOMA SUN MD Ordered by: IFEOMA SUN MD Report #: [id number] Locati on: ICU Room/Bed: ICU 192-1 Procedure: [id number] US/U S SOFT TISSUE NECK/HEAD Exam Date: 08/25/17 Exam Nigel e: 1636 REPORT STATUS: Signed EXAM: Neck Ultrasound INDICATION: COMPARISON: Chest x-ray performed on the same date. TECHNIQU E: Transverse and longitudinal images of the neck were obtained. FINDINGS : See impression. IMPRESSION: No definite mass or discrete flui d collection visualized in the neck. Heterogeneous echotexture shadowing area in the inferior, slightly left neck, may correspond to trachea and endotrachea l tube. If there is high clinical concern for neck mass, consider obtaining so ft tissue neck CT for better evaluation. Signed by: Dr. Rafael Guzmán MD on 08/25/2017 5:32 PM Dictated By: RAFAEL GUZMÁN MD 31 Transcribed By: BREEZY on 08/25/171731 COPY TO: IFEOMA SUN MD CHEST SINGLE (PORTABLE) [place] [address] Patient Name: FRANCHESKA HERNANDEZ MR #: [id number] : 1940 Age/Sex: 77/M Req #: [id number] Adm Physician: IFEOMA SUN MD Ordered by: DENITA ROWLEY MD Report #: [id number] Location: ICU Room/Bed: ICU 1921 Procedure: [id number] DX/ZAC ST SINGLE (PORTABLE) Exam Date: 08/24/17 Exam Time: 0530 REPORT STATUS: Signed EXAMINATION: CHEST SINGLE (PORTABLE) INDICATION: Intubated. Atypical pneumonia. COMPARISON: Chest x-ray 08/23/2017. FINDINGS: AP view TUBES and LINES: Endotracheal t ube, nasogastric tube, and median sternotomy wires are unchanged. Right PICC l ine is unchanged. LUNGS: Lungs are not well inflated. There are bibasilar atelectasis. There is mild prominence of the central pulmonary vasculature, c onsistent with pulmonary venous congestion. Persistent interstitial edema pres ent. PLEURA: Small right pleural effusion. HEART AND MEDIASTINUM: Ca rdiac size is mildly enlarged. There are atherosclerotic calcifications within the aorta. BONES AND SOFT TISSUES: No acute osseous lesion. Soft tissues are unremarkable. UPPER ABDOMEN: No free air under the diaphragm. IMPRESSION: Stable interstitial edema with decreased lung volumes. Signed by: Dr. Artemio Sommer M.D. on 08/24/2017 7:37 AM Dictated By: ARTEMIO SOMMER MD 6 Transcribed By: BREEZY on 08/24/17736 COPY TO: DENITA ROWLEY MD CHEST SINGLE (PORTABLE) [place] [address] Patient Name: FRANCHESKA HERNANDEZ MR #: [id number] : 1940 Age/Sex: 77/M Req #: [id number] Adm Physician: IFEOMA SUN MD Ordered by: DENITA ROWLEY MD Report #: [id number] Location: ICU Room/Bed: ICU [facility] Procedure: [id number] DX/ZAC ST SINGLE (PORTABLE) Exam Date: Exam Time: R EPORT STATUS: Signed EXAMINATION: CHEST SINGLE (PORTABLE) INDICATIO N: Respiratory failure COMPARISON: 08/22/2017 FINDINGS: TUBES and LINES: Endotracheal and nasogastric tubes are stable. Right upper extremity PICC line is in good position. LUNGS: Lungs are not well infla melisa. There are bibasilar atelectasis. There is mild prominence of the centr al pulmonary vasculature, consistent with pulmonary venous congestion. Persist ent interstitial edema present. PLEURA: Small right pleural effusion. HEART AND MEDIASTINUM: Cardiac size is mildly enlarged. There are atheroscle rotic calcifications within the aorta. BONES AND SOFT TISSUES: No acute os seous lesion. Soft tissues are unremarkable. UPPER ABDOMEN: No free air under the diaphragm. IMPRESSION: Stable interstitial edema with decr eased lung volumes. Signed by: Dr. Tahir Obando M.D. on 08/23/2017 6:47 AM Dictated By: TAHIR KELLY MD Transcribed By: BREEZY on 08/23/17646 COPY TO: DENITA ROWLEY MD CHEST XRAY LINE PLACEMENT [place] [address] Patient Name: FRANCHESKA HERNANDEZ MR #: [id number] : 1940 Age/Sex: 77/M Req #: [id number] Adm Physician: IFEOMA SUN MD Ordered by: IFEOMA SUN MD Report #: [id number] Location: ICU Room/Bed: ICU [facility] Procedure: [id number] DX/C HEST XRAY LINE PLACEMENT Exam Date: 08/22/17 Exam Ti me: 1352 REPORT STATUS: Signed PROCEDURE: CHEST XRAY LINE PLACEMENT COMPARISON: 0700 hours INDICATIONS: S/P PICC PLACEMENT FINDINGS: Portable frontal image obtained at 1352 hrs. LINES/TUBES: Right PICC line terminates in the SVC. No evidence of pneumothorax. Endotracheal tube terminates 3-4 cm above the federica. Enteric tube extends past the diaphragm. LUNGS: Right pulmonary infiltrates are grossly stable. Left pulmonary infiltrates have slightly improved. PLEURA: A right pleural effusion has mobilized into the base of the chest. No large left pleural effusion. No pne umothorax. HEART T MEDIASTINUM: Stable cardiomegaly and median sterno augustin wires BONES T SOFT TISSUES: Stable. CONCLUSION: Right PICC line terminates in the SVC without evidence of pneumothorax. Right pleural effusion and pulmonary infiltrates are similar. Some improveme nt in left pulmonary infiltrates. Dictated by: Arpan Cantu M.D. on 08/22/2017 at 14:24 Electronically approved by: Arpan Cantu M.D. on 08/22/2017 at 14:24 Dictated By: ARPAN CANTU MD Elect ronically Signed By: ARPAN CANTU MD on 08/22/17 1424 Transcribed By: [facility] on 08/22/17 1424 COPY TO: IFEOMA SUN MD CHEST SINGLE (PORTABLE) [place] [address] Patient Name: FRANCHESKA HERNANDEZ MR #: [id number] : 1940 Age/Sex: 77/M Req #: [id number] Adm Physician: IFEOMA SUN MD Ordered by: DANNY WISE MD Report #: [id number] Location: MED/SURG3 Room/Bed: [facility] Procedure: [id number] DX/CHEST SINGLE (PORTABLE) Exam Date: 08/22/17 Exam Time: 0630 REPORT STATUS: Signed PROCEDURE: A single AP view of the chest. COMPARISON: [facility], , CHEST 2 VIEWS, 08/21/19 18, 6:28. INDICATIONS: ETT/NGT PLACEMENT FINDINGS: Lines/ tubes: Endotracheal tube and nasogastric tube are in appropriate locations. Lungs: Worsening interstitial opacities in both lungs may represent mul tifocal pneumonia. Pleura: Small bilateral pleural effusions. Heart and mediastinum: The heart and the mediastinum are unremarkable. Bones: No acute bony abnormality. IMPRESSION: 1. Worsening pulmonary opaci ties. 2. Acceptable position of the ET tube and NG tube. Aguila Juárez D.O. Dictated by: Aguila Juárez D.O. on 08/22/2017 at 7:46 Electron ically approved by: Aguila Juárez D.O. on 08/22/2017 at 7:46 Dictated By: AGUILA JUÁREZ DO 0746 COPY TO: DANNY WISE MD CT BRAIN WO [place] [address] Patient Name: FRANCHESKA HERNANDEZ MR #: [id number] : 1940 Age/Sex: 77/M Req #: [id number] Adm Physician: IFEOMA SUN MD Ordered by: DANNY WISE MD Report #: [id number] Location: MED/SURG3 Room/Bed: [facility] Procedure: [id number] CT/CT BRAIN WO Exam Date: 08/22/17 Exam Time: 0 630 REPORT STATUS: Signed Exam: Head CT without contrast History: Al tered mental status, unresponsive Comparison studies: None Technique: Axial images were obtained from the skull base to the vertex. Coronal and sagi ttal images reconstructed from the axial data. Intravenous contrast: None Findings: Scalp: No abnormalities. Bones: No fractures, blastic or lytic lesions. Brain sulci: Mildly prominent. Ventricles: Mild compensatory di latation. No hydrocephalus. Extra-axial spaces: No masses, no fluid collection . Parenchyma: No mass, acute hemorrhage or acute cortical vascular insu lts. There are chronic lacunar infarcts in the head of the right caudate nucle us which extend to the adjacent anterior limb of the right internal capsule, w ithin the right thalamus, along the lateral margin of the right superior putam en and in the anterior left lentiform nucleus. Ill-defined confluent hypodensi ties in the supratentorial white matter are nonspecific but most compatible wi th chronic small vessel ischemic changes. A 7 mm calcification along the right occipital convexity, just superior to the calcarine fissure, is without mass effect and may reflect dystrophic calcification is sequela previous infe ction/inflammation, or alternatively small meningioma at the extra-axial in lo cation. Sellar/suprasellar region: No abnormalities. Craniocervical junct ion: Patent foramen magnum. No Chiari one malformation. Incidental findings : Atherosclerotic calcifications in the carotid siphons and intradural verteb ral arteries. IMPRESSION: No mass, acute hemorrhage or acute cortic al vascular insults. Chronic findings: 1. Mild generalized volume loss. 2. Moderate microvascular ischemic changes. 3. Multiple chronic lacunar in farcts as described. 4. Incidental right occipital calcification. Signed by: Dr. Mary Anne Martinez M.D. on 08/22/2017 7:48 AM Dictated By: MARY ANNE IRBY MD 7 Transcri bed By: BREEZY on 08/22/17747 COPY TO: DANNY WISE MD RENAL RETROPERITONEAL COMP [place] [id number] Patient Name: FRANCHESKA HERNANDEZ MR #: [id number] : 1940 Age/Sex: 77/M Req #: [id number] Adm Physician: IFEOMA SUN MD Ordered by: IFEOMA SUN MD Report #: [id number] Location: ICU Room/Bed: ICU 192-1 Procedure: [id number] US/U S RENAL RETROPERITONEAL COMP Exam Date: 08/22/17 Exizabella m Time: 944 REPORT STATUS: Signed PROCEDURE: US RETROPERITONEAL ( KI DNEY ). COMPARISON: CT chest 08/20/17. INDICATIONS: ARF TECHNIQUE: Ward- scale and color sonographic images of the bilateral kidneys and bladder where obtained in transverse and longitudinal planes. FINDINGS: RIG HT KIDNEY: 12.4 cm in length. Normal cortical thickness. Cysts: None Mary d masses: None Stones: None Hydronephrosis: None Echogenicity: Within norm al limits LEFT KIDNEY: 9.1 cm in length. The cortex is mildly diminutiv e. Cysts: None Solid masses: None Stones: Lower pole calculus measures 15 mm. Hydronephrosis: None Echogenicity: Normal Bladder: Collapsed aroun d a Tom catheter. No free fluid in the pelvis. Visualized portions of th e liver and spleen demonstrate no focal abnormality. CONCLUSION: Left intrarenal calculus. No obstructive uropathy. Normal renal echotexture. Mildly atrophic left kidney. No hydronephrosis. Dictated by: Arpan Cantu M.D. on 08/22/2017 at 13:14 Electronically approved by: Arpan Cantu M.D. on 08/22/2017 at 13:14 Dictated By: ARPAN CANTU MD 1314 Perdomo scribed By: DANITZA on 08/22/17 1314 COPY TO: IFEOMA SUN MD CHEST 2 VIEWS [place] [address] Patient Name: FRANCHESKA HERNANDEZ MR #: [id number] : 1940 Age/Sex: 77/M Req #: [id number] Adm Physician: IFEOMA SUN MD Ordered by: MAMADOU DIETZ MD Report #: [id number] Location: MED/SURG3 Room/Bed: [facility] Procedure: [id number] DX/CHEST 2 VIEWS Exam Date: 08/21/17 Exam Time: 02 09 REPORT STATUS: Signed EXAMINATION: PA and lateral views of the est. COMPARISON: CT chest 08/20/2017, chest radiograph 08/20/2017 CLINICAL HISTORY: Pneumonia DISCUSSION: Coarse interstitial opacities, r ight greater than left are unchanged relative to 08/20/2017 when accounting for differences in technique. No new airspace consolidation. No pneumothorax. Stab le cardiomediastinal contour with postsurgical changes in the mediastinum. Med iastinal lymphadenopathy is seen to better advantage on comparison CT. No acute osseous abnormalities. Multilevel degenerative disc changes of the thor acic spine. IMPRESSION: Coarse interstitial nodular opacities, right gre ater than left, are grossly stable relative to 08/20/2017. For further descripti on and differential diagnosis refer to the report for CT scan of the chest wit hout contrast 08/20/2017. Signed by: Dr. Mary Anne Alicea M.D. on 7:18 AM Dictated By: MARY ANNE ALICEA MD 7 Transcribed By: BREEZY on 08/21/17717 COPY TO: MAMADOU DIETZ MD CT CHEST WO [place] [address] Patient Name: FRANCHESKA HERNANDEZ MR #: [id number] : 1940 Age/Sex: 77/M Req #: [id number] Adm Physician: Ordered by: MAMADOU DIETZ MD Report #: [id number] Location: ER Room/Bed: Procedure: [id number] CT/CT CHEST WO Exam Date: 08/20/17 Exam Time: 1909 REPORT STATUS: Signed CT chest without enhancement CPT code: 80562 INDICATION: Atypical pneumonia versus metastatic lung disease. No primary malignancy documented. TECHNIQUE: Thin collimation axial images obtained from the thoracic inlet to the level of the diaphragm without intravenous contrast. RADIATION DOSE: Total DLP: 542.3 mGy*cm Estimated effective dose: (DLP x 0.015 x size factor) mSv CTDIvol has been reviewed. It is below the limits set by the Radiation Protocol Committee (RPC). COMPARISON: CT chest 02/08/2016 (performed for bronchitis and fever), chest x-ray 02/16/2016 CHEST FINDINGS : Lymph nodes: No enlarged axillary or supraclavicular lymphadenopathy. Mediastinal lymph nodes are prominent. A right paratracheal lymph node measures 1.6 x 1.0 cm. A subcarinal lymph node measures 1.5 x 1.7 cm. A lymph node in the AP window measures 1.3 x 1.0 cm. These are all slightly larger compared to previous exam. Thyroid: Diminutive in size without mass in the visualized parenchyma. Mediastinum: Atherosclerotic and valvular calcifications are p resent. The heart is mildly enlarged. No pericardial effusion. The aorta and m ain pulmonary artery are normal in diameter. The esophagus is collapsed. Lungs: Right: Multifocal inflammatory appearing noncalcified nodules are p resent throughout the lung, similar to previous exam. There is diffuse bronchi al wall thickening. No alissa consolidation. These nodules are now increased in number. Left: Multifocal inflammatory appearing and noncalcified nodules p resent throughout the lung. These are similar in appearance but increased in n umber compared to previous exam. There is mild bronchial wall thickening. No f rank consolidation. Airways: There is mucous along the left wall of the t rachea. There is mild tracheobronchomalacia.. Pleura: No pleural effusion or pleural based mass.. ABDOMEN FINDINGS: The liver is decreased in atte nuation consistent with steatosis. A calcified granuloma in the right lobe is stable. There are tiny gallstones in the gallbladder neck. These are stable in position. No soft tissue mass in the visualized portions of the liver, spleen, or adrenal glands.. Bones: Median sternotomy is intact. There are degener ative changes of the spine without compression deformity. No lytic or blastic lesions.. IMPRESSION: 1. Multifocal inflammatory appearing nodules no dules, right lung more severe than the left, is very suggestive of infectious/ inflammatory process. However, metastasis should be considered if there are no signs/symptoms of infection and there is a history of malignancy. 2. Diff use bronchial wall thickening suggestive of bronchitis. 3. COPD. 4. Mediasti nal lymph nodes are slightly larger which may be reactive to an infectious/inf lammatory process. 5. Hepatic steatosis. Cholelithiasis. Signed by: Dr. Ashlee Cantu MD on 08/20/2017 7:39 PM Dictated By: ARPAN Rosado 38 Transcribed By: BREEZY on 08/20/171938 COPY TO: MAMADOU DIETZ MD CHEST 2 VIEWS [place] [address] Patient Name: FRANCHESKA HERNANDEZ MR #: [id number] : 1940 Age/Sex: 77/M Req #: [id number] Adm Physician: Ordered by: MAMADOU DIETZ MD Report #: [id number] Location: ER Room/Bed: Procedure: [id number] DX/CHEST 2 VIEWS Exam Jamie e: 08/20/17 Exam Time: 1710 REPORT STATUS: Sign ed PROCEDURE: Frontal and lateral views of the chest. COMPARISON: [facility] st x-ray 02/16/2016. CT chest with 02/08/2016 INDICATIONS: SHORT OF BREATH FINDINGS: Lines/tubes: Median sternotomy wires remain intact. Lungs: Worsening nodular airspace opacities bilaterally, right worse and lef t. Pleura: There is no pleural effusion or pneumothorax. Heart and mediastinum: The heart and the mediastinum are normal. Atherosclerotic calci fications are present. Bones: No acute bony abnormality. IMPRESSION : Worsening multifocal nodular air space opacities, right worse than l eft. This is concerning for atypical infection such as OLE. This was previous ly present since 02/08/2016 but has continued to worsen. Alternatively a metas tatic disease should also be considered. Dictated by: Artemio Sommer M.D. on 10/2017 at 17:46 Electronically approved by: Artemio Sommer M.D. on 08/20/2017 at 17:46 Dictated By: ARTEMIO SOMMER MD 45 Transcribed By: DANITZA on 08/20/171745 COPY TO: MAMADOU DIETZ MD
[2019-05-29] MEDS ORDERED: PANTOPRAZOLE 40 MG 10ML VIAL IV STA (08:32)
[2019-05-29] MEDS ORDERED: DIATRIZOATE MEGL/DIATRIZOA SOD 30 ML BTL PO ONE (08:53)
[2019-05-29] MEDS ORDERED: ONDANSETRON HCL INJ 2MG/ML 2ML 2 MG/ML VIAL IV ONE (09:00)
[2019-05-29 09:06] LABS: BASOPHILS # (AUTO) 0.1 (0.0-0.1); BASOPHILS % 0.5 % (0.0-1.0); EOSINOPHILS % 0.2 % (0.0-6.0); HEMATOCRIT 28.4 % (38.2-49.6); HEMOGLOBIN 8.1 g/dL (14.0-18.0); LYMPHOCYTES # (AUTO) 1.1 (1.0-3.2); LYMPHOCYTES % 10.4 % (18.0-39.1); MEAN CORPUSCULAR HEMOGLOBIN 29.1 pg (28-32); MEAN CORPUSCULAR HGB CONC 28.5 g/dL (31-35); MEAN CORPUSCULAR VOLUME 102.2 fL (81-99); MONOCYTES # (AUTO) 0.5 (0.2-0.8); MONOCYTES % 5.1 % (4.4-11.3); NEUTROPHILS # (AUTO) 8.9 (2.1-6.9); NEUTROPHILS % 83.4 % (38.7-80.0); PLATELET COUNT 180 x10e3/uL (140-360); RED BLOOD COUNT 2.78 x10e6/uL (4.3-5.7); RED CELL DISTRIBUTION WIDTH 13.3 % (11.7-14.4)
[2019-05-29] MEDS ORDERED: FERROUS SULFAT325 MG PO (09:19)
[2019-05-29] MEDS ORDERED: WARFARIN SODIU2.5 MG PO (09:20)
[2019-05-29] MEDS ORDERED: LOSARTAN PO (09:20)
[2019-05-29] MEDS ORDERED: MYRBETRIQ25 MG PO (09:21)
[2019-05-29] MEDS ORDERED: AMIODARONE PO (09:21)
[2019-05-29 09:25] LABS: ALBUMIN 2.9 g/dL (3.5-5.0); ANION GAP 13.6 mmol/L (8-16); CALCIUM 8.8 mg/dL (8.4-10.2); CREATININE, SERUM 1.6 mg/dL (0.72-1.25)
--- NOTE | 2019-05-29 09:26 | NUR ---
DR. DAVIES AT BEDSIDE EVALUATING PATIENT
[2019-05-29 09:29] LABS: POTASSIUM 5.6 mmol/L (3.5-5.1)
--- NOTE | 2019-05-29 09:29 | NUR ---
PATIENT TOLERATING ORAL CONTRAST FOR CT ABDOMEN
[2019-05-29] MEDS ORDERED: PANTOPRAZOL 40MG/SOD CHL 0.9% 50 ML IV ONE (09:30)
[2019-05-29] MEDS ORDERED: OCTREOTIDE ACETATE 0.05 MG/ML AMP IV ONE (09:45)
--- NOTE | 2019-05-29 09:52 | NUR ---
2ND TYPE AND CROSS MATCH COMPLETED
--- NOTE | 2019-05-29 10:04 | Diagnostic Imaging Report ---
EXAMINATION: CHEST SINGLE (PORTABLE) INDICATION: Vomiting, diarrhea, weakness. COMPARISON: Chest radiograph 08/30/2017. FINDINGS: TUBES and LINES: None. LUNGS: Lungs are well inflated. Lungs are clear. There is no evidence of pneumonia or pulmonary edema. Central vascular congestion. PLEURA: No pleural effusion or pneumothorax. HEART AND MEDIASTINUM: The cardiomediastinal silhouette is unremarkable. There are atherosclerotic calcifications within the aorta. BONES AND SOFT TISSUES: No acute osseous abnormality. Status post median sternotomy. UPPER ABDOMEN: No free air under the diaphragm. IMPRESSION: No acute radiographic abnormality. Signed by: Dr. Geoffrey Gipson MD on 05/29/2019 10:00 AM
[2019-05-29] MEDS: SODIUM CHLORIDE 0.9% 1000ML 1,000 ML IV SCH ×2 (10:17→17:22)
[2019-05-29 10:48] LABS: PLATELET ESTIMATE ADEQUATE; PLATELET MORPHOLOGY COMMENT FEW LARGE
[2019-05-29 10:49] LABS: ANISOCYTOSIS SLIGHT; HYPOCHROMASIA SLIGHT
--- NOTE | 2019-05-29 11:01 | NUR ---
[facility] CALLED OUT FOR TEST
[2019-05-29] MEDS ORDERED: SODIUM CHLORIDE 0.9% 50ML 50 ML ONE (11:02)
[2019-05-29] MEDS ORDERED: IOPAMIDOL 370 MG/ML 200 ML INFUS..BTL INJ ONE (11:02)
--- NOTE | 2019-05-29 11:15 | NUR ---
RECEIVED REPORT FROM ASHLEY JAMES; WALKING ROUNDS COMPLETED; PT BED LOW/LOCKED, CALL LIGHT IN REACH, NO NEEDS VOICED AT THIS TIME, WILL CONTINUE TO MONITOR.
--- NOTE | 2019-05-29 11:36 | Diagnostic Imaging Report ---
EXAM: CT Abdomen and Pelvis WITH contrast INDICATION: Abdominal Pain, melena. COMPARISON: None. TECHNIQUE: Abdomen and pelvis were scanned utilizing a multidetector helical scanner from the lung base to the pubic symphysis after administration of IV contrast. Coronal and sagittal reformations were obtained. Routine protocol was performed. Scan was performed when during portal venous phase. IV CONTRAST: 100 cc of Isovue 370 ORAL CONTRAST: Water COMPLICATIONS: None RADIATION DOSE: Total DLP: 812 mGy*cm Estimated effective dose: (DLP x 0.015 x size factor) mSv CTDIvol has been reviewed. It is below the limits set by the Radiation Protocol Committee (RPC). FINDINGS: LINES and TUBES: None. LOWER THORAX: Patchy dependent atelectasis. HEPATOBILIARY: No evidence of focal lesion. No biliary ductal dilation. GALLBLADDER: Decompressed. Cholelithiasis without CT evidence of cholecystitis. SPLEEN: No splenomegaly. PANCREAS: No focal masses or ductal dilatation. ADRENALS: Mild thickening of the bilateral adrenal glands without discrete nodule. KIDNEYS/URETERS: Kidneys enhance symmetrically. No evidence of hydronephrosis or mass. Nonobstructing 1 mm right lower pole renal stone. Indeterminant 1.2 cm hypodense lesion in the left lower pole kidney (21 HU; series 2, image 28). Mild nonspecific bilateral perirenal stranding. GI TRACT: No evidence of wall thickening or distension. Status post appendectomy. Contrast and particulate contents within the stomach. PELVIC ORGANS/BLADDER: Partially decompressed bladder. LYMPH NODES: No lymphadenopathy. VESSELS: Extensive atherosclerotic calcifications in the abdominal aorta and branch vessels. There is a focal saccular infrarenal abdominal aortic aneurysm near the bifurcation, measuring up to 3.0 cm on series 2, image 38. PERITONEUM / RETROPERITONEUM: No free air or fluid. BONES AND SOFT TISSUES: There is a moderate wedge compression deformity at T12 with associated sclerosis, suggestive of chronicity. Finding is new compared to CT on 08/20/2017. There is a mild age indeterminant loss of anterior vertebral body height at L2. CONCLUSION: No acute CT findings in the abdomen or pelvis. Focal saccular infrarenal abdominal aortic aneurysm, measuring up to 3.0 cm. Suggest follow-up CTA of the abdomen and pelvis in 12 months. Indeterminate hypodense lesion in the left lower pole kidney, which may reflect a minimally complex cyst. Suggest renal ultrasound for further evaluation. Cholelithiasis without CT evidence of cholecystitis. Moderate wedge compression deformity at T12 with associated sclerosis, suggestive of chronicity. The finding is new compared to CT chest on 08/20/2017. Mild age indeterminant loss of anterior vertebral body height at L2. Signed by: Dr. Geoffrey Gipson MD on 05/29/2019 11:32 AM
[2019-05-29] MEDS: OCTREOTIDE ACETATE 500 MCG in SODIUM CHLORIDE 0.9% 250ML 249 ML IV SCH (12:02)
[2019-05-29 12:58] LABS: HEMATOCRIT 24.5 % (38.2-49.6); HEMOGLOBIN 7.3 g/dL (14.0-18.0)
[2019-05-29] MEDS ORDERED: SODIUM CHLORIDE 0.9% 250ML 250 ML IV ONE (14:15)
[2019-05-29] MEDS ORDERED: SOD POLYSTYRENE SULFONATE SUSP 15 GM/60 ML BTL PO ONE (14:15)
--- NOTE | 2019-05-29 14:15 | NUR ---
Received pt from er via stretcher. pt transferred self to bed. O2 in place. family at bedside.
[2019-05-29 14:28] VITALS: BP 149/78
[2019-05-29] MEDS ORDERED: MULTI-VITAMIN1 EACH PO (14:43)
[2019-05-29] MEDS ORDERED: AMLODIPINE BESYL5 MG PO (14:43)
[2019-05-29 14:54] VITALS: BP 149/78
--- NOTE | 2019-05-29 16:04 | Diagnostic Imaging Report ---
Tagged-RBC GI Bleed Study Clinical information: 79-year-old female with GI bleeding and diarrhea. Discussion: The patient's own red blood cells were labeled with 27.5 mCi of technetium-99m pertechnetate using the in vitro method (UltraTag). Dynamic images of the abdomen were obtained through 60 minutes. Distribution of tracer activity appears physiologic throughout the abdomen. No abnormal accumulation of tracer is seen within the gastrointestinal lumen. Impression: No scan evidence of active gastrointestinal bleeding at this time. Signed by: Dr. Maria G Mckoy M.D. on 05/29/2019 4:00 PM
--- NOTE | 2019-05-29 16:38 | NUR ---
Kayexalate given after pt had a large loose bm.
[2019-05-29] MEDS ORDERED: LOSARTAN POTASSIUM 25 MG TAB PO SCH (18:00)
[2019-05-29] MEDS ORDERED: METOPROLOL SUCCINATE 50 MG TAB XL PO SCH (18:00)
[2019-05-29] MEDS ORDERED: MULTIVITAMINS/MINERALS TAB PO SCH (18:00)
[2019-05-29] MEDS ORDERED: AMIODARONE HCL 200 MG TAB PO SCH (18:00)
[2019-05-29 18:33] LABS: HEMATOCRIT 23.4 % (38.2-49.6)
[2019-05-29 18:46] LABS: HEMOGLOBIN 6.8 g/dL (14.0-18.0)
[2019-05-29 18:49] LABS: INR 1.93; PROTHROMBIN TIME 22.7 seconds (11.9-14.5)
--- NOTE | 2019-05-29 19:10 | NUR ---
REPORT GIVEN TO THE ON COMING NURSE
--- NOTE | 2019-05-29 19:45 | NUR ---
MD notified of patient's PT/INR, no new orders received.
[2019-05-29 20:00] VITALS: BP 122/59
[2019-05-29] MEDS ORDERED: FERROUS SULFATE 325 MG TAB PO SCH (21:00)
--- NOTE | 2019-05-29 21:35 | NUR ---
1 unit of blood is transfusing. no adverse reaction noted will continue to monitor infusion process.
--- NOTE | 2019-05-29 21:35 | NUR ---
1 unit of blood is done transfusing. patient tolerated procedure well. no adverse reaction noted.
[2019-05-29] MEDS: ATORVASTATIN 20 MG TAB PO SCH (21:43)
[2019-05-29] MEDS: TAMSULOSIN HCL 0.4 MG CAP PO SCH (21:43)
[2019-05-30] VITALS (7 sets, daily range): BP systolic 139–159; BP diastolic 47–83
[2019-05-30] MEDS ORDERED: SODIUM CHLORIDE 0.9% 250ML 250 ML ONE ×2 (00:48→04:59)
--- NOTE | 2019-05-30 00:50 | NUR ---
second unit of blood has started to infuse. no adverse reactions noted. will continue to monitor infusion process.
--- NOTE | 2019-05-30 03:41 | NUR ---
second unit of blood is done transfusing. patient tolerated procedure well. no adverse reaction noted.
[2019-05-30] MEDS ORDERED: OCTREOTIDE ACETATE 1 ML ONE (04:59)
[2019-05-30] MEDS: OCTREOTIDE ACETATE 500 MCG in SODIUM CHLORIDE 0.9% 250ML 249 ML IV SCH ×3 (05:16→15:30)
[2019-05-30 06:34] LABS: HEMATOCRIT 29.5 % (38.2-49.6)
[2019-05-30 06:49] LABS: INR 1.62; PROTHROMBIN TIME 19.9 seconds (11.9-14.5)
[2019-05-30 06:50] LABS: PARTIAL THROMBOPLASTIN TIME 27.9 seconds (23.8-35.5)
--- NOTE | 2019-05-30 06:50 | NUR ---
ON BEDSIDE ROUNDS PT RESTING QUIETLY EASILY AROUSE AND FEELING MUCH BETTER THIS AM
--- NOTE | 2019-05-30 06:57 | NUR ---
report given to day nurse. patient is resting comfortably in bed. bed is in lowest position and call light is within reach.
[2019-05-30 07:01] LABS: ALBUMIN 2.9 g/dL (3.5-5.0); ALBUMIN/GLOBULIN RATIO 1.1 (0.8-2.0); ANION GAP 12.8 mmol/L (8-16); CALCIUM 8.2 mg/dL (8.4-10.2); CREATININE, SERUM 1.27 mg/dL (0.72-1.25); POTASSIUM 4.8 mmol/L (3.5-5.1)
[2019-05-30 07:56] LABS: FERRITIN 31.15 ng/mL (21.81-274.66)
[2019-05-30] MEDS ORDERED: LOSARTAN POTASSIUM 25 MG TAB PO SCH (09:00)
[2019-05-30] MEDS: AMLODIPINE BESYLATE 5 MG TAB PO SCH (09:00)
[2019-05-30] MEDS: AMIODARONE HCL 200 MG TAB PO SCH (09:00)
[2019-05-30] MEDS: TAMSULOSIN HCL 0.4 MG CAP PO SCH (09:00)
[2019-05-30] MEDS: PANTOPRAZOLE 40 MG 10ML VIAL IV SCH ×2 (09:00→17:00)
[2019-05-30] MEDS: MULTIVITAMINS/MINERALS TAB PO SCH (09:00)
[2019-05-30] MEDS ORDERED: FUROSEMIDE 40 MG TAB PO SCH (09:00)
[2019-05-30] MEDS: METOPROLOL SUCCINATE 50 MG TAB XL PO SCH ×2 (09:00→17:00)
--- NOTE | 2019-05-30 09:30 | NUR ---
DR FERMIN MADE ROUNDS EARLIER THIS AM. NEW ORDERS NOTED
[2019-05-30 10:27] LABS: HEMATOCRIT 32.4 % (38.2-49.6); HEMOGLOBIN 9.7 g/dL (14.0-18.0)
--- NOTE | 2019-05-30 12:00 | NUR ---
DR Ashlee ROWLEY TO SEE PT EARLIER. NEW ORDERS RECEIVED
[2019-05-30] MEDS: ENOXAPARIN SODIUM INJ 100 MG/ML SYR SC SCH (12:15)
--- NOTE | 2019-05-30 17:15 | History and Physical ---
PRIMARY CARE PHYSICIAN: Vitor Castro MD. METAL SLITTER: Addi Ashley MD. CHIEF COMPLAINT: GI bleed, nausea and vomiting, diarrhea. HISTORY OF PRESENT ILLNESS: A 79-year-old male with coronary artery disease, previous bypass graft surgery, mitral valve replacement, hypertension, and chronic kidney disease. The patient is on Plavix and warfarin, came in with melena with rectal bleed and also vomited hematemesis. The patient's hemoglobin and hematocrit dropped down significantly. He had a CT scan of the abdomen and pelvis and bleeding scan without any identification of the bleeding site. The patient did receive 2 units of blood transfusion. He is stable at this time. His INR is 1.6, went down from 1.9. The patient is otherwise stable. PAST MEDICAL HISTORY: Aortic valve replacement, hypertension, chronic kidney disease, coronary artery disease with previous bypass graft surgery, COPD, ex-smoker, and history of gastric ulcer multiple years ago. SOCIAL HISTORY: The patient quit smoking many years. No regular drug. ALLERGIES: NO KNOWN ALLERGIES. HOME MEDICATIONS: The patient is on Norvasc, Lipitor, Plavix, ferrous sulfate, furosemide, metoprolol succinate, Myrbetriq, multivitamin, Flomax, warfarin 2.5 mg daily, amiodarone, and losartan. PHYSICAL EXAMINATION: VITAL SIGNS: Temperature is 98, blood pressure 122/59, pulse rate 60, and respirations 18. GENERAL: The patient is awake and alert. He is not in any distress. HEENT: Normocephalic and atraumatic. Pupils reactive. Anicteric. NECK: Supple grossly. PULMONARY: Diminished breath sounds. CARDIOVASCULAR: Positive murmur. S1 and S2. Regular rate and rhythm. ABDOMEN: Soft, nontender, and non-distention. EXTREMITIES: No cyanosis or edema. NEUROLOGIC: No focal deficit. LABORATORY DATA: Hemoglobin and hematocrit of 6.8 and 23.4, went up to 9.0 and 29.5 after 2 units of blood transfusion. Platelet is 180. Chemistry; sodium is 142, potassium 5.6, down to 4.8, chloride 107, bicarb is 27, BUN 59, down to 46, creatinine 1.6, down to 1.27, and glucose 131. Iron saturation is 94%, total iron binding capacity is 216, iron 204, and transferrin is 154. IMAGING TESTS: CT abdomen and pelvis with contrast showed focal saccular infrarenal abdominal aortic aneurysm measuring up to 3 cm. Suggested follow up in approximately 12 months. Indeterminate hypodense lesion in the left lower pole kidney, which may reflect minimal complex cyst. Cholelithiasis without evidence of cholecystitis. Moderate wedge compression deformity of T12 consistent with history of compression fractures. The GI bleeding scan was negative. IMPRESSION: 1. Acute blood loss anemia secondary to most likely upper gastrointestinal bleed, exacerbated by anticoagulant therapy and anti-platelet. 2. Multiple chronic baseline problems including coronary artery disease with previous bypass graft surgery and mitral valve replacement, hypertension, and chronic kidney disease. PLAN: The patient will need endoscopy. Dr. Addi Ashley already seen the patient. The patient is on octreotide IV drip. He is resuming home medications except for Plavix, aspirin, and warfarin for now. INR is 1.62. The patient will need further management upon post endoscopy. We will consult Cardiology for the management of the anticoagulation and the recommendation on anticoagulant treatment due to the mitral valve replacement. We will obtain echocardiogram. MD ROBERT Taylor/INGRID /[id number]
--- NOTE | 2019-05-30 17:35 | Consultation ---
DATE OF CONSULTATION: Cardiology Consultation CHIEF COMPLAINT: This is a 79-year-old with melena and hematemesis. HISTORY OF PRESENT ILLNESS: The patient is a 79-year-old, who has had a previous mitral valve replacement, is currently on Coumadin. The patient presented to the emergency room with melena and some history of hematemesis. The patient was subsequently transfused. The patient has had no chest pain, no shortness of breath. PAST MEDICAL HISTORY: Significant for: 1. Previous mitral valve replacement. 2. History of peptic ulcer disease. 3. History of paroxysmal atrial fibrillation. 4. History of hypertension. MEDICATIONS: At home include Coumadin, losartan, and amiodarone. SOCIAL HISTORY: The patient does not drink and does not smoke. FAMILY HISTORY: There is no known family history of coronary artery disease. PHYSICAL EXAMINATION: GENERAL: The patient is a well-developed, well-nourished male, in no obvious distress. VITAL SIGNS: Included a blood pressure of 140/62, temperature of 96.7, and pulse is 64. HEAD, EARS, EYES, NOSE, AND THROAT: The patient's cranium was normocephalic and atraumatic. Extraocular muscles were intact. Sclerae were anicteric. Pupils were equal, round, and reactive to light. There was no pallor or cyanosis of the oral mucosa. There is no erythema or edema of the throat. NECK: Supple. No jugular venous distention. No carotid bruits. CHEST: Demonstrated rhonchi bilaterally. CARDIAC: Demonstrated an abnormal S1 and normal S2 with a 2/6 systolic murmur. ABDOMEN: Demonstrated good bowel sounds. No tenderness. No masses. EXTREMITIES: No clubbing. No cyanosis. No edema. NEUROLOGICAL: The patient was alert and oriented x3. Cranial nerves II through XII were intact. Motor strength was +5/+5 in all limbs. DIAGNOSTIC DATA: EKG demonstrated normal sinus rhythm with nonspecific ST and T-wave changes. IMPRESSION: The patient is a 79-year-old with a gastrointestinal bleed, on Coumadin for previous mitral valve replacement. RECOMMENDATIONS: My recommendations are as follows: 1. The patient's Coumadin will need to be held while the gastrointestinal evaluation is in progress. 2. The patient will need to be placed on Lovenox temporarily to prevent thrombosis of the valve replacement. 3. The patient's Plavix would need to be discontinued completely. 4. When the patient is stable from a GI standpoint, the Coumadin can will be restarted. MD SARWAT Nowak/INGRID /[id number]
--- NOTE | 2019-05-30 18:50 | NUR ---
REPORT GIVEN TO COMING NURSE. PT RESTING QUIETLY.
[2019-05-30] MEDS: ATORVASTATIN 20 MG TAB PO SCH (20:52)
[2019-05-30 23:13] LABS: HEMATOCRIT 28.4 % (38.2-49.6); HEMOGLOBIN 8.7 g/dL (14.0-18.0)
[2019-05-31] VITALS (8 sets, daily range): BP systolic 135–162; BP diastolic 49–72
[2019-05-31] MEDS: ENOXAPARIN SODIUM INJ 100 MG/ML SYR SC SCH ×2 (00:27→12:49)
[2019-05-31] MEDS: OCTREOTIDE ACETATE 500 MCG in SODIUM CHLORIDE 0.9% 250ML 249 ML IV SCH ×2 (03:05→15:27)
[2019-05-31 03:14] LABS: HEMATOCRIT 27.5 % (38.2-49.6); HEMOGLOBIN 8.4 g/dL (14.0-18.0)
[2019-05-31 06:14] LABS: BASOPHILS % 0.3 % (0.0-1.0); EOSINOPHILS # (AUTO) 0.3 (0.0-0.4); EOSINOPHILS % 4.8 % (0.0-6.0); HEMATOCRIT 29.5 % (38.2-49.6); HEMOGLOBIN 8.9 g/dL (14.0-18.0); LYMPHOCYTES # (AUTO) 1.4 (1.0-3.2); LYMPHOCYTES % 20.5 % (18.0-39.1); MEAN CORPUSCULAR HEMOGLOBIN 29.7 pg (28-32); MEAN CORPUSCULAR HGB CONC 30.2 g/dL (31-35); MEAN CORPUSCULAR VOLUME 98.3 fL (81-99); MONOCYTES # (AUTO) 0.6 (0.2-0.8); MONOCYTES % 8.2 % (4.4-11.3); NEUTROPHILS # (AUTO) 4.5 (2.1-6.9); NEUTROPHILS % 65.8 % (38.7-80.0); PLATELET COUNT 104 x10e3/uL (140-360); RED CELL DISTRIBUTION WIDTH 15.9 % (11.7-14.4)
[2019-05-31 06:21] LABS: INR 2.17; PROTHROMBIN TIME 24.9 seconds (11.9-14.5)
[2019-05-31 07:10] LABS: ANION GAP 9.4 mmol/L (8-16); CREATININE, SERUM 1.32 mg/dL (0.72-1.25); POTASSIUM 4.4 mmol/L (3.5-5.1)
--- NOTE | 2019-05-31 07:10 | NUR ---
PATIENT IS IN STABLE CONDITION WITH NO S/S OF RESPIRATORY DISTRESS- PATIENT DENIES PAIN. IV FLUIDS INFUSING. SON PRESENT IN ROOM. PATIENT IS NPO FOR PROCEDURE TODAY. CALL LIGHT IS WITHIN REACH, PATIENT IS INSTRUCTED TO CALL FOR ASSISTANCE NEEDED.
--- NOTE | 2019-05-31 07:27 | NUR ---
report given to day nurse. patient is resting comfortably in bed. bed is in lowest position and call michelle is within reach.
[2019-05-31] MEDS: AMLODIPINE BESYLATE 5 MG TAB PO SCH (08:22)
[2019-05-31] MEDS: PANTOPRAZOLE 40 MG 10ML VIAL IV SCH ×2 (08:23→17:15)
[2019-05-31] MEDS: AMIODARONE HCL 200 MG TAB PO SCH (09:00)
[2019-05-31] MEDS: METOPROLOL SUCCINATE 50 MG TAB XL PO SCH ×3 (09:00→17:00)
[2019-05-31 10:24] LABS: HEMOGLOBIN 8.6 g/dL (14.0-18.0)
--- NOTE | 2019-05-31 10:46 | NUR ---
PATIENT OFF THE UNIT TO ENDO- PATIENT IS IN STABLE CONDITION WITH NO S/S OF RESPIRATORY DISTRESS. TELEMETRY APPLIED.
--- NOTE | 2019-05-31 12:45 | NUR ---
PATIENT BACK ON THE UNIT FROM ENDO- PATIENT IS IN STABLE CONDITION WITH NO S/S OF RESPIRATORY DISTRESS. PATIENT DENIES PAIN. IV FLUIDS INFUSING. FAMILY MEMBERS PRESENT AT BEDSIDE. CALL LIGHT IS WITHIN REACH, PATIENT IS INSTRUCTED TO CALL FOR ASSISTANCE NEEDED.
[2019-05-31] MEDS: MULTIVITAMINS/MINERALS TAB PO SCH (12:49)
[2019-05-31] MEDS: TAMSULOSIN HCL 0.4 MG CAP PO SCH (12:49)
[2019-05-31 16:19] LABS: HEMATOCRIT 30.4 % (38.2-49.6); HEMOGLOBIN 9.2 g/dL (14.0-18.0)
[2019-05-31] MEDS: SUCRALFATE 1 GM TAB PO SCH ×2 (17:15→21:49)
[2019-05-31] MEDS ORDERED: LIDOCAINE HCL 2% LOCAL INJ 5 ML SDV VIAL INJ ONE (18:05)
[2019-05-31] MEDS ORDERED: PROPOFOL IV EMULSION 10 MG/ML 20 ML VIAL ONE (18:05)
--- NOTE | 2019-05-31 19:27 | NUR ---
PATIENT IS RESTING IN BED- IN STABLE CONDITION WITH NO S/S OF RESPIRATORY DISTRESS. NO PAIN VOICED. IV FLUIDS INFUSING. FAMILY MEMBERS PRESENT IN ROOM. CALL LIGHT IS WITHIN REACH, PATIENT IS INSTRUCTED TO CALL FOR ASSISTANCE NEEDED. BEDSIDE REPORT GIVEN TO ONCOMING NURSE.
--- NOTE | 2019-05-31 19:31 | NUR ---
PT IS RESTING IN BED WITH FAMILY AT BEDSIDE. RESPIRATION IS EVEN AND UNLABORED, NO DISTRESS NOTED. BED IN THE LOWEST POSITION, LOCKED, AND CALL LIGHT WITHIN REACH. WILL CONTINUE TO MONITOR.
--- NOTE | 2019-05-31 19:36 | Operative Report ---
DATE OF PROCEDURE: 05/31/2019 SURGEON: Addi Ashley MD PROCEDURE: Esophagogastroduodenoscopy with fulguration with APC probe. INDICATIONS FOR PROCEDURE: Anemia, history of melena. MEDICATIONS: The patient was done under MAC, please see anesthesiologist's note. PROCEDURE IN DETAIL: With the patient in left lateral decubitus position, a flexible fiberoptic Olympus gastroscope was introduced into the esophagus under direct visualization without any difficulty. There was some patchy erythema noted in distal esophagus. The scope was then advanced with ease into the stomach traversing a small sliding hiatal hernia. Mucosa overlying the antrum revealed some patchy areas of erythema. Pylorus was of normal contour and shape, was intubated with ease and the scope was advanced all the way to the second portion of the duodenum. The scope was then withdrawn slowly mucosa overlying the proximal second portion and duodenal bulb appeared to be within normal limits. The scope was then withdrawn back into the stomach and retroflexed and the mucosa overlying the fundus appeared to be within normal limits. Multiple actively bleeding arteriovenous malformations were noted in the body of the stomach along the lesser curvature and those were fulgurated with the APC probe with good hemostasis. The scope was then straightened out, it was subsequently withdrawn, and the patient tolerated procedure well. IMPRESSION: 1. Distal esophagitis, mild. 2. Small sliding hiatal hernia. 3. Gastritis, mild. 4. Several arteriovenous malformations, body, lesser curvature, actively bleeding, fulgurated with the APC probe with good hemostasis. I repeat with good hemostasis obtained. PLAN: Follow H and H. Augment anti-PUD regimen. Advance diet. MD CLARA Mills/INGRID /[id number] cc: Ulises Richards MD
[2019-05-31] MEDS: ATORVASTATIN 20 MG TAB PO SCH (21:49)
--- NOTE | 2019-05-31 23:07 | Consultation ---
DATE OF CONSULTATION: 05/31/2019 REASON FOR CONSULTATION: GI bleed. CHIEF COMPLAINT: Bloody stools. HISTORY OF PRESENT ILLNESS: This is a 79-year-old male, well known to practice with history of coronary artery disease, status post CABG in 2000, status post AVR bioprosthetic in [address] 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 The patient recently seen in the office on May 03, 2019 for interval visit. Reports at that time was having intermittent black stools. The patient was on Coumadin and Plavix therapy. At that time was told to stop therapy because of the said complaints of intermittent black stools plus was noted with some anemia on his labs. The patient again was advised to stop Coumadin therapy and Plavix therapy and follow up with PCP for GI evaluation. However, after discussion with the patient and , he did not stop his Coumadin therapy, only stopped Plavix therapy. However, the patient progressed and prior to admission had several bloody black stools and also has some coffee-grounds emesis. Therefore, came to the ER for further evaluation. On admission, hemoglobin was noted at 6.8. The patient was transfused with 2 units of PRBCs. Cardiology was consulted. The patient underwent EGD this a.m. on May 31, 2019 showing gastritis/gastric AVMs, underwent cauterization. The patient has been placed on octreotide drip, Protonix b.i.d., and Carafate therapy. The patient denies currently any chest pains or shortness of breath. 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 SURGICAL HISTORY: Coronary artery bypass x3 in 2000, AVR bioprosthetic 2012, appendectomy 1992, bilateral cataract surgery 2011. FAMILY HISTORY: Mother at age 78 of unknown cause. Father in his 70s with a history of prostate cancer. SOCIAL HISTORY: He is . 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 Denies any alcohol use or tobacco use. ALLERGIES: NO KNOWN ALLERGIES. HOME MEDICATIONS: 1. Plavix 75 mg daily. 2. Warfarin 2.5 mg daily. 3. Atorvastatin 20 mg daily. 4. Metoprolol 25 mg b.i.d. 5. Losartan 25 mg daily. 6. Amlodipine 5 mg daily. 7. Amiodarone 200 mg three times per week. 8. Furosemide 40 mg daily. 9. Hydrochlorothiazide 12.5 daily. 10. Flomax 0.4 mg daily. 11. ProAir inhaler as needed q.4. REVIEW OF SYSTEMS: GENERAL: Denies any weight changes. Positive for fatigue, weakness. Denies any fevers, chills, or night sweats. SKIN: No rashes. Positive for bruising. HEENT: Denies any nausea. Positive for vomiting, coffee-grounds emesis. Denies any vision change, earaches, epistaxis, sore throat, swollen neck, or hoarseness. CARDIAC: Denies any chest pain. Denies any palpitation. Positive for dyspnea on exertion. Denies any orthopnea, PND, intermittent lower extremity edema. RESPIRATORY: Denies shortness of breath, wheezing, coughing, hemoptysis. GI: Poor appetite. Positive for nausea. Positive for vomiting, coffee ground emesis. Positive for melena and bloody stools. URINARY: Positive for frequency and urgency. Denies any hematuria or dysuria. VASCULAR: Positive for intermittent lower extremity edema. Denies any claudication. MUSCULOSKELETAL: Positive for generalized joint pains, back pains. NEUROLOGIC: Denies any numbness, tingling, tremors. HEMATOLOGY: Positive for anemia and bruising. ENDOCRINE: Denies any heat or cold intolerance, polyuria, or polydipsia. PHYSICAL EXAMINATION: VITAL SIGNS: Height 65 inches, weight 197 pounds, BMI 32. Temperature 97.7, pulse 54, respiratory rate 16, blood pressure 116/48, pulse ox 100% on 2 L nasal cannula. GENERAL: Appears stated age, reliable informant. SKIN: No rashes. Positive for bruises. HEENT: Normocephalic. Pupils are equal and reactive. Extraocular Movements intact. Trachea midline. No JVD. No carotid bruits. Oral mucosa pink. HEART: Regular rate and rhythm. Positive systolic murmur. Positive sternotomy scar. LUNGS: Bilateral breath sounds clear to auscultation. No wheezing or rales are noted. ABDOMEN: Soft, nontender, and nondistended. No organomegaly noted. MUSCULOSKELETAL: Good muscle strength throughout. +1 lower extremity edema. VASCULAR: +2 bilateral radial pulses bilaterally. +1 DP and PT pulses bilaterally. Cranial nerves 2 through 12 seem intact. LABORATORY DATA: On admission hemoglobin 6.8, hematocrit 23. Currently, hemoglobin 9.7, hematocrit 32. Sodium 143, potassium 4.4, BUN 31, creatinine 1.3. EKG normal sinus rhythm with right bundle branch block. ASSESSMENT AND PLAN: 1. Gastrointestinal bleed, status post EGD showing gastritis and arteriovenous malformation with status post cauterization. 2. Coronary artery disease, status post coronary artery bypass graft. 3. Status post aortic valve replacement, bioprosthetic. 4. History of stroke, presumed cardioembolic. 5. Carotid artery disease, status post right carotid stent. 6. Hypertension. 7. Hyperlipidemia. 8. Chronic obstructive pulmonary disease .. PLAN: 1. The patient presents with GI bleed after being told to stop anti-platelet and OAC therapy. However, the patient continued Coumadin therapy and did not have GI workup as instructed. The patient underwent EGD this morning with noted gastritis/arteriovenous malformations, status post cauterization, now on octreotide, PPI, and Carafate therapy. For now, we will of course recommend stopping all anti-platelet therapy. We will also have to stop Lovenox therapy since valve is bioprostatic. 2. We will continue antihypertensives therapy as blood pressure dictates, continue statin therapy. 3. We will continue antiarrhythmic therapy. 4. Long discussion with the patient and at bedside. We will continue to follow the patient and adjust cardiac therapy as clinical course dictates. Thank you very much for this consult. SEEN AND EXAMINED Dictated by Ulises Nooyla NP Quinn Marcus MD DC/INGRID /[id number] AGATA
[2019-06-01] VITALS: BP 141/62
[2019-06-01 04:00] VITALS: BP 134/63
[2019-06-01] MEDS: OCTREOTIDE ACETATE 500 MCG in SODIUM CHLORIDE 0.9% 250ML 249 ML IV SCH (04:06)
[2019-06-01 06:03] LABS: HEMATOCRIT 28.1 % (38.2-49.6); HEMOGLOBIN 8.5 g/dL (14.0-18.0); MEAN CORPUSCULAR HEMOGLOBIN 29.9 pg (28-32); MEAN CORPUSCULAR HGB CONC 30.2 g/dL (31-35); MEAN CORPUSCULAR VOLUME 98.9 fL (81-99); PLATELET COUNT 118 x10e3/uL (140-360); RED BLOOD COUNT 2.84 x10e6/uL (4.3-5.7); RED CELL DISTRIBUTION WIDTH 14.8 % (11.7-14.4)
[2019-06-01] MEDS: TAMSULOSIN HCL 0.4 MG CAP PO SCH (08:19)
[2019-06-01] MEDS: AMLODIPINE BESYLATE 5 MG TAB PO SCH (08:19)
[2019-06-01] MEDS: SUCRALFATE 1 GM TAB PO SCH (08:19)
[2019-06-01] MEDS: MULTIVITAMINS/MINERALS TAB PO SCH (08:19)
[2019-06-01] MEDS: PANTOPRAZOLE 40 MG 10ML VIAL IV SCH (08:19)
[2019-06-01 08:20] VITALS: BP 139/60
[2019-06-01] MEDS: METOPROLOL SUCCINATE 50 MG TAB XL PO SCH (08:20)
[2019-06-01 08:27] VITALS: BP 139/60
[2019-06-01] MEDS ORDERED: AMIODARONE HCL 200 MG TAB PO SCH (09:00)
[2019-06-01] MEDS ORDERED: OMEPRAZOLE40 MG PO (10:15)
[2019-06-01] MEDS ORDERED: CARAFATE1 GM/10 ML PO (10:15)
--- NOTE | 2019-06-01 11:09 | NUR ---
Patient discharged home, Alert with no distress, Dr Marcus had rounds, prescription given, Patient and family aware about No Blood thinner medication, they aware about f/up appointments. IV canula removed with tip intact, no ss of infiltration noted. tele box returned, his son at bed side giving ride, not in any distress
--- NOTE | 2019-06-02 05:24 | Discharge Summary ---
CONSULTANTS: 1. Quinn Marcus MD. 2. Addi Ashley MD. PRIMARY CARE PHYSICIAN: Vitor Castro MD. FINAL DIAGNOSES: 1. Melena, rectal bleed. 2. Status post EGD by Dr. Addi Ashley, finding with gastritis, arteriovenous malformation in the stomach. 3. The patient has mitral valve replacement history with bioprosthetic, no anticoagulation needed. SUMMARY: A 79-year-old male came in with rectal bleed and melena. The patient had workup done. He was stable. The patient's hemoglobin and hematocrit dropped down to 8.5 and 28.1. The patient is otherwise stable. Plavix, aspirin, and warfarin have been discontinued. The patient to follow up closely, monitor as an outpatient. No further bleeding. The patient is on Carafate and PPI. The patient has been cleared by Cardiology and GI for discharge home. He will discharge home to resume home medication except for losartan due to increase in potassium level due to chronic renal insufficiency at baseline. The patient will resume his other usual medications. No Plavix. No warfarin. New prescription is Protonix 40 mg daily and Carafate suspension 1 g before meals and at bedtime. Discussed with the patient's son and spouse at bedside. The patient will be discharged home today. Dayron Perdomo MD JT/MODL /[id number] cc: Vitor Castro MD
== END 2019-06-01 11:11 | disposition home or self-care (01) | DRG 378 ==
LOC: ER 08:00 → ERHOLD 09:37 → MED/SURG3 14:20
PROVIDERS: ADMIT Internal Medicine; ATTEND Internal Medicine
PROC: 30233N1 Transfusion of Nonautologous Red Blood Cells into Peripheral Vein, Percutaneous Approach (ICD-10-PCS; 2019-05-29)
PROC: 0D568ZZ Destruction of Stomach, Via Natural or Artificial Opening Endoscopic (ICD-10-PCS; principal; 2019-05-31 11:46)
DX: K55.21 Angiodysplasia of colon with hemorrhage (principal); D62 Acute posthemorrhagic anemia; I25.10 Atherosclerotic heart disease of native coronary artery without angina pectoris; I12.9 Hypertensive chronic kidney disease with stage 1 through stage 4 chronic kidney disease, or unspecified chronic kidney disease; Z95.1 Presence of aortocoronary bypass graft; Z95.2 Presence of prosthetic heart valve; Z79.01 Long term (current) use of anticoagulants; I48.0 Paroxysmal atrial fibrillation; Z86.73 Personal history of transient ischemic attack (TIA), and cerebral infarction without residual deficits; J44.9 Chronic obstructive pulmonary disease, unspecified; E78.5 Hyperlipidemia, unspecified; D64.9 Anemia, unspecified; K20.9 Esophagitis, unspecified; K29.70 Gastritis, unspecified, without bleeding; K44.9 Diaphragmatic hernia without obstruction or gangrene; N18.3 Chronic kidney disease, stage 3 (moderate)
CPT/HCPCS: 36415; 43270; 71045; 74177; 78278; 80048; 80053; 82728; 83540; 84466; 85007; 85014; 85018; 85025; 85027; 85045; 85610; 85730; 86850; 86900; 86920; 93005; 93306; 99285; A9512; J1650; J2001; J2353; J2354; J2405; J7030; J7050; P9016; Q9967